=== PATIENT | male | born 1945 | race Caucasian/White ===

== ENCOUNTER 2019-11-07 02:57 | Emergency (ER) | payer OTHER ==
[~2019-11-07] VITALS: Ht 177.8 cm; Wt 102.1 kg
[~2019-11-07 02:57] MED LIST: FLUSAL1005 IH; FURO20 PO; METF500 PO; POTA10T PO; SULTRIDS PO; TAMS.4ER PO
[2019-12-14] MEDS ORDERED: METF500 PO ×2 (13:51→14:03)
[2019-12-14] MEDS ORDERED: AMIT50 PO (13:51)
[2019-12-14] MEDS ORDERED: AMLO10 PO (13:52)
[2019-12-14] MEDS ORDERED: ZESTRIL40 M1 PO (13:52)
[2019-12-14] MEDS ORDERED: Prozac40 MG PO (13:52)
[2019-12-14] MEDS ORDERED: GABA300T24 PO (13:53)
[2019-12-14] MEDS ORDERED: BUDE6HFA INH (13:53)
[2019-12-14] MEDS ORDERED: SPIRIVA RESPIMAT4 GM INH (13:53)
[2019-12-14] MEDS ORDERED: Ventolin/Prove6.7 GM INH (13:54)
[2019-12-14] MEDS ORDERED: Duoneb 2.5-0.5 M3 ML (13:54)
[2019-12-14] MEDS ORDERED: OMEPRAZOLE20 MG PO (13:55)
[2019-12-14] MEDS ORDERED: IBUP800 PO (13:55)
[2019-12-14] MEDS ORDERED: HYDCHL25 PO (13:55)
[2019-12-14] MEDS ORDERED: FLUT1DIS5 INH (14:01)
[2019-12-14] MEDS ORDERED: [UNRECOGNIZED DRUG - MIXTURE] (14:02)
[2019-12-14] MEDS ORDERED: Aspirin EC81 MG PO (14:02)
[2019-12-14] MEDS ORDERED: FURO40 PO (14:02)
[2019-12-14] MEDS ORDERED: METO25ER PO (14:03)
[2019-12-14] MEDS ORDERED: POTA10T PO (14:03)
[2019-12-14] MEDS ORDERED: GABA300 (14:03)
[2019-12-14] MEDS ORDERED: PRIM250 PO (14:03)
[2019-12-14] MEDS ORDERED: LOSA50 PO (14:03)
[2019-12-14] MEDS ORDERED: DULO60 PO (14:04)
[2019-12-14] MEDS ORDERED: DULO30 PO (14:04)
[2019-12-14] MEDS ORDERED: NAPR220 PO (14:04)
== END 2019-11-07 03:37 | disposition home or self-care (01) ==
LOC: ER 02:57
DX: S16.1XXA Strain of muscle, fascia and tendon at neck level, initial encounter (principal); I10 Essential (primary) hypertension; E11.9 Type 2 diabetes mellitus without complications; J44.9 Chronic obstructive pulmonary disease, unspecified; Z79.899 Other long term (current) drug therapy; Z79.84 Long term (current) use of oral hypoglycemic drugs; X58.XXXA Exposure to other specified factors, initial encounter
CPT/HCPCS: 99283; A9270

== ENCOUNTER 2019-12-22 09:26 | Day surgery (SDC) | payer OTHER ==
[~2019-12-22] VITALS: Ht 177.8 cm; Wt 102.4 kg
[~2019-12-22 09:26] MED LIST changes: +AMIT50 PO; +AMLO10 PO; +Aspirin EC81 MG PO; +BUDE6HFA INH; +DULO30 PO; +DULO60 PO; +Duoneb 2.5-0.5 M3 ML; +FLUT1DIS5 INH; +FURO40 PO; +GABA300; +GABA300T24 PO; +HYDCHL25 PO; +IBUP800 PO; +LOSA50 PO; +METO25ER PO; +NAPR220 PO; +OMEPRAZOLE20 MG PO; +PRIM250 PO; +Prozac40 MG PO; +SPIRIVA RESPIMAT4 GM INH; +Ventolin/Prove6.7 GM INH; +ZESTRIL40 M1 PO; +[UNRECOGNIZED DRUG - MIXTURE]
== END 2019-12-22 11:40 | disposition home or self-care (01) ==
LOC: ORSCSDS 09:26
PROVIDERS: Student in an Organized Health Care Education/Training Program
PROC: 0DBK8ZX Excision of Ascending Colon, Via Natural or Artificial Opening Endoscopic, Diagnostic (ICD-10-PCS; principal; 2019-12-22 11:00)
PROC: 0DBN8ZX Excision of Sigmoid Colon, Via Natural or Artificial Opening Endoscopic, Diagnostic (ICD-10-PCS; principal; 2019-12-22 11:00)
PROC: 0DBH8ZX Excision of Cecum, Via Natural or Artificial Opening Endoscopic, Diagnostic (ICD-10-PCS; principal; 2019-12-22 11:00)
PROC: 0DBP8ZX Excision of Rectum, Via Natural or Artificial Opening Endoscopic, Diagnostic (ICD-10-PCS; principal; 2019-12-22 11:00)
DX: K92.1 Melena (principal); D12.0 Benign neoplasm of cecum; D12.2 Benign neoplasm of ascending colon; K63.5 Polyp of colon; K62.1 Rectal polyp; K57.30 Diverticulosis of large intestine without perforation or abscess without bleeding; K64.8 Other hemorrhoids; K64.4 Residual hemorrhoidal skin tags; G47.33 Obstructive sleep apnea (adult) (pediatric); E11.9 Type 2 diabetes mellitus without complications; J44.9 Chronic obstructive pulmonary disease, unspecified; Z79.899 Other long term (current) drug therapy; Z79.84 Long term (current) use of oral hypoglycemic drugs; Z79.82 Long term (current) use of aspirin
CPT/HCPCS: 82947; 88305; J2250; J2704; J7120

== ENCOUNTER → 2020-04-10 | Outpatient (CLI) | payer OTHER ==
[2020-04-10 12:53] LABS: BASOPHILS ABSOLUTE AUTO 0.02 K/mm3 (0.00-0.23); BASOPHILS PERCENT AUTO 1 % (0-2); EOSINOPHILS ABSOLUTE AUTO 0.17 K/mm3 (0.00-0.68); EOSINOPHILS PERCENT AUTO 5 % (0-6); Hematocrit 46.5 % (37.0-53.0); Hemoglobin 15.6 g/dL (13.5-17.5); IMMATURE GRAN ABSOLUTE AUTO 0.02 K/mm3 (0.00-0.10); IMMATURE GRAN PERCENT AUTO 1 % (0-1); LYMPHOCYTES ABSOLUTE AUTO 0.73 K/mm3 (0.84-5.20); LYMPHOCYTES PERCENT AUTO 20 % (21-46); MONOCYTES ABSOLUTE AUTO 0.45 K/mm3 (0.16-1.47); MONOCYTES PERCENT AUTO 12 % (4-13); Mean Corpuscular HGB 34.4 pg (26.0-34.0); Mean Corpuscular HGB Conc 33.5 g/dL (31.5-36.5); Mean Corpuscular Volume 102 fL (80-100); Mean Platelet Volume 11.4 fL (9.1-12.4); NEUTROPHILS ABSOLUTE AUTO 2.28 K/mm3 (1.96-9.15); NEUTROPHILS PERCENT AUTO 62 % (41-73); Platelet Count 146 K/mm3 (150-400); RDW Coefficient Variation 14.8 % (11.7-14.2); RDW Standard Deviation 56.5 fL (35.1-46.3); Red Blood Cell Count 4.54 M/mm3 (4.30-5.90); White Blood Cell Count 3.67 K/mm3 (4.00-11.30)
[2020-04-10 13:07] LABS: Anion Gap 6 mmol/L (6-16); Blood Urea Nitrogen 22 mg/dL (8-24); Bun/Creatinine Ratio 22.9 (12.0-20.0); CO2, Blood 34 mmol/L (21-32); Chloride, Blood 103 mmol/L (98-108); Creatinine, Blood 0.96 mg/dL (0.60-1.20); Glomerular Filtration Rate >60 (60-); Glucose, Blood 143 mg/dL (70-99); Potassium, Blood 4.5 mmol/L (3.5-5.5); Sodium, Blood 143 mmol/L (136-145)
[2020-04-10 13:11] LABS: Troponin I <0.017 ng/mL (0.000-0.040)
== END | disposition home or self-care (01) ==
LOC: LAB 12:50 → LAB EV 12:50 → LAB SHORT 12:50
PROVIDERS: Family Medicine
DX: R06.00 Dyspnea, unspecified (principal)
CPT/HCPCS: 80048; 83880; 84484; 85025

== ENCOUNTER → 2020-08-16 | Outpatient (CLI) | payer OTHER | END | disposition home or self-care (01) | LOC: LAB SHORT 15:30 → LAB 15:30 | DX: L97.509 Non-pressure chronic ulcer of other part of unspecified foot with unspecified severity (principal) | CPT/HCPCS: 87070; 87075; 87077; 87186; 87205 ==

== ENCOUNTER → 2020-09-14 | Outpatient (CLI) | payer OTHER ==
[2020-09-17 14:32] LABS: Adenovirus F 40/41 Not Detected (NOT DETECT); Astrovirus Not Detected (NOT DETECT); Campylobacter Sp Not Detected (NOT DETECT); Cryptosporidium Not Detected (NOT DETECT); Cyclospora Cayetanensis Not Detected (NOT DETECT); E. Coli O157 Not Detected (NOT DETECT); Entamoeba Histolytica Not Detected (NOT DETECT); Enteroaggregative E. coli-EAEC Not Detected (NOT DETECT); Enteropathogenic E. coli-EPEC Not Detected (NOT DETECT); Enterotoxigenic E. coli-ETEC Not Detected (NOT DETECT); Giardia Lamblia Not Detected (NOT DETECT); Norovirus GI/GII Not Detected (NOT DETECT); Plesiomonas Shigelloides Not Detected (NOT DETECT); Rotavirus A Not Detected (NOT DETECT); Salmonella Sp Not Detected (NOT DETECT); Sapovirus Not Detected (NOT DETECT); Shiga Toxin-prod E. coli-STEC Not Detected (NOT DETECT); Shigella/Enteroin E. coli-EIEC Not Detected (NOT DETECT); Vibrio Cholerae Not Detected (NOT DETECT); Vibrio Sp Not Detected (NOT DETECT); Yersinia Enterocolitica Not Detected (NOT DETECT)
== END | disposition home or self-care (01) ==
LOC: LAB SHORT 17:30 → LAB 17:30
PROVIDERS: Internal Medicine
DX: R19.7 Diarrhea, unspecified (principal)
CPT/HCPCS: 0097U; 87177; 87209; 87324

== ENCOUNTER → 2021-09-28 | Outpatient (CLI) | payer MEDICARE | END | disposition home or self-care (01) | LOC: LAB SHORT 17:03 → LAB 17:03 | DX: N39.0 Urinary tract infection, site not specified (principal) | CPT/HCPCS: 87086 ==

== ENCOUNTER 2021-11-17 03:39 | Observation (INO) | payer MEDICARE ==
[~2021-11-17] VITALS: Ht 177.8 cm; Wt 88.1 kg
[~2021-11-17 03:39] MED LIST changes: -GABA300; +GABA300 PO
[2021-11-17 04:45] LABS: BASOPHILS ABSOLUTE AUTO 0.02 K/mm3 (0.00-0.23); BASOPHILS PERCENT AUTO 1 % (0-2); EOSINOPHILS ABSOLUTE AUTO 0.05 K/mm3 (0.00-0.68); EOSINOPHILS PERCENT AUTO 1 % (0-6); Hematocrit 46.1 % (37.0-53.0); Hemoglobin 14.5 g/dL (13.5-17.5); IMMATURE GRAN ABSOLUTE AUTO 0.01 K/mm3 (0.00-0.10); IMMATURE GRAN PERCENT AUTO 0 % (0-1); LYMPHOCYTES ABSOLUTE AUTO 0.38 K/mm3 (0.84-5.20); LYMPHOCYTES PERCENT AUTO 9 % (21-46); MONOCYTES ABSOLUTE AUTO 0.65 K/mm3 (0.16-1.47); MONOCYTES PERCENT AUTO 15 % (4-13); Mean Corpuscular HGB 31.9 pg (26.0-34.0); Mean Corpuscular HGB Conc 31.5 g/dL (31.5-36.5); Mean Corpuscular Volume 101 fL (80-100); NEUTROPHILS ABSOLUTE AUTO 3.22 K/mm3 (1.96-9.15); NEUTROPHILS PERCENT AUTO 74 % (41-73); Platelet Count 141 K/mm3 (150-400); RDW Standard Deviation 56.6 fL (35.1-46.3); Red Blood Cell Count 4.55 M/mm3 (4.30-5.90); White Blood Cell Count 4.33 K/mm3 (4.00-11.30)
[2021-11-17 05:07] LABS: Alanine Aminotransfer (ALT/SGP 22 U/L (12-78); Albumin, Blood 2.9 g/dL (3.4-5.0); Albumin/Globulin Ratio 0.9 (0.8-1.8); Alk Phos 97 U/L (50-136); Anion Gap 4 mmol/L (6-16); Aspartate Aminotrans (AST/SGOT 21 U/L (12-37); Bilirubin, Total 0.4 mg/dL (0.1-1.0); Blood Urea Nitrogen 12 mg/dL (8-24); Bun/Creatinine Ratio 15.5 (12.0-20.0); CO2, Blood 30 mmol/L (21-32); Chloride, Blood 104 mmol/L (98-108); Creatinine, Blood 0.77 mg/dL (0.60-1.20); Globulin, Blood 3.3 g/dL (2.2-4.0); Glomerular Filtration Rate >60 (60-); Glucose, Blood 138 mg/dL (70-99); Potassium, Blood 4.2 mmol/L (3.5-5.5); Sodium, Blood 138 mmol/L (136-145); Total Protein, Blood 6.2 g/dL (6.4-8.2); Troponin I <0.015 ng/mL (0.000-0.040)
[2021-11-17 05:30] LABS: Influenza A, PCR NEGATIVE (NEGATIVE); Influenza B, PCR NEGATIVE (NEGATIVE); Resp Syncytial Virus, PCR NEGATIVE (NEGATIVE); SARS-Cov-2 (COVID-19) PCR, MMC NEGATIVE (NEGATIVE)
[2021-11-17] MEDS ORDERED: AMLODIPINE BESY10 MG PO (07:19)
[2021-11-17] MEDS ORDERED: Ventolin/Prove6.7 GM INH (07:19)
[2021-11-17] MEDS ORDERED: FENOFIBRATE48 MG PO (07:20)
[2021-11-17] MEDS ORDERED: PRIMIDONE PO (07:21)
[2021-11-17] MEDS ORDERED: AZELASTINE137 MCG/06 (07:22)
[2021-11-17] MEDS ORDERED: METO25ER PO (15:42)
[2021-11-17] MEDS ORDERED: OMEGA-3 FISH O1 EAC6 PO (15:43)
[2021-11-17] MEDS ORDERED: FLUT1DIS5 INH (15:44)
--- NOTE | 2021-11-17 15:48 | NUR ---
ARRIVES TO THE FLOOR ABOUT 1430. ALERT. ORIENTED. HAD 2 SHOTS COVID AND THEN HAD COVID 08/20 AND RECEIVED REGENERON. HX COPD, HTN AND DIET CONTROLLED D.M. HAS HAD SOB WITH WEAKNESS FOR FEW WEEKS GETTING WORSE PAST FEW DAYS. PAIN WITH DEEP INSPIRATION. COUGHS WHEN TRYING TO TAKE A DEEP INSPIRATION. WAS ON 4.5 L UPON ADMIT, BUT NOW ON 2.5 L WITH SATS 93% AND HEART RATE IN 70'S. PLEASANT. COOPERATIVE. AWARE TO LET US KNOW IF NEEDS TO USE BSC OR BATHROOM. BED ALARM ON. LUNGS DIM LOWER LOBES, WHEEZEY UPPER. TELE ON SHOWING SR. WCTM
--- NOTE | 2021-11-17 20:42 | NUR ---
ALERTED TO PT C/O CONGESTION AND SOB W/WHEEZES AUSCULTATED TO BILAT LUNG LOBES. BD PROTOCOL AND PRN SEA SPRAY RX'D. SPO2 >91% ON CONT.BIOX. AND NO ACUTE RESP DISTRESS OBSERVED.
--- NOTE | 2021-11-18 05:07 | NUR ---
SUMMARY: PT A/OX4, CALLS APPROPRIATELY TO SPECIFY NEEDS AND IS PLEASANT AND COOPERATIVE W/CARE. HE REMAINS ON 1-2.5L O2 VIA NC AND TOLERATED HOME CPAP AT HS. CONT BIOX INTACT W/SPO2 WNL. WHEEZES AUSCULATED THIS SHIFT, BD PROTOCOL OBTAINED AND BX TX'S RECIEVED BY RT PER EMAR. SOB OBSERVED W/EXERTION BUT PT RECOVERS QUICKLY AT REST. SUBSCRIPTION CLERK COUGH PERSISTS AND SEA SPRAY OBTAINED FOR PT C/O CONGESTION. NO ACUTE CHANGES, VSS/AFEBRILE. WCTM AND REPORT TO DAY RN.
--- NOTE | 2021-11-18 07:35 | NUR ---
pt laying in bed wiht cpap on, wakes easily, a/ox3, pleasant and cooperative with care, follows commands well, denies pain, states he slept ok, lungs have exp wheezing t/o, resp even and unlabored, no cough noted at this time, desats to 88% on r/a when removed the cpap, hrr, tele in place running sr per monitor, see strip, no giselle a noted, ppp+1, cap refill<3sec, vs stable, afebrile, iv site is clear and patent, s.duke hennessy, sba to bathroom, eric, skin c/w/d, call light in reach.
--- NOTE | 2021-11-18 18:02 | NUR ---
pt sitting up on the side of the bed to eat dinner, states he's doing ok, administered a dose of rocephin as ordered, no acute changes this shift. call light in reach.
[2021-11-19 05:16] LABS: BASOPHILS ABSOLUTE AUTO 0.01 K/mm3 (0.00-0.23); BASOPHILS PERCENT AUTO 1 % (0-2); EOSINOPHILS ABSOLUTE AUTO 0.01 K/mm3 (0.00-0.68); EOSINOPHILS PERCENT AUTO 1 % (0-6); Hematocrit 43.4 % (37.0-53.0); IMMATURE GRAN PERCENT AUTO 0 % (0-1); LYMPHOCYTES ABSOLUTE AUTO 0.54 K/mm3 (0.84-5.20); LYMPHOCYTES PERCENT AUTO 26 % (21-46); MONOCYTES PERCENT AUTO 19 % (4-13); Mean Corpuscular HGB 32.6 pg (26.0-34.0); Mean Corpuscular HGB Conc 32.3 g/dL (31.5-36.5); Mean Corpuscular Volume 101 fL (80-100); NEUTROPHILS ABSOLUTE AUTO 1.12 K/mm3 (1.96-9.15); NEUTROPHILS PERCENT AUTO 54 % (41-73); Platelet Count 101 K/mm3 (150-400); RDW Coefficient Variation 15.1 % (11.7-14.2); RDW Standard Deviation 57.1 fL (35.1-46.3); Red Blood Cell Count 4.29 M/mm3 (4.30-5.90); White Blood Cell Count 2.08 K/mm3 (4.00-11.30)
[2021-11-19 06:12] LABS: Alanine Aminotransfer (ALT/SGP 20 U/L (12-78); Albumin, Blood 2.6 g/dL (3.4-5.0); Albumin/Globulin Ratio 0.9 (0.8-1.8); Alk Phos 72 U/L (50-136); Anion Gap 5 mmol/L (6-16); Aspartate Aminotrans (AST/SGOT 17 U/L (12-37); Bilirubin, Total 0.3 mg/dL (0.1-1.0); Blood Urea Nitrogen 10 mg/dL (8-24); Bun/Creatinine Ratio 15.7 (12.0-20.0); CO2, Blood 34 mmol/L (21-32); Chloride, Blood 100 mmol/L (98-108); Creatinine, Blood 0.64 mg/dL (0.60-1.20); Globulin, Blood 2.9 g/dL (2.2-4.0); Glomerular Filtration Rate >60 (60-); Glucose, Blood 102 mg/dL (70-99); Potassium, Blood 3.5 mmol/L (3.5-5.5); Sodium, Blood 139 mmol/L (136-145); Total Protein, Blood 5.5 g/dL (6.4-8.2)
--- NOTE | 2021-11-19 11:06 | NUR ---
Nutrition Education. Pt sitting up on chair, alert and aware. AND vegetarian nutrition therapy education packet reviewed and provided to pt. Discussed using frozen vegetables for options at home to increase use in meals. Discussed quick ways to prepare meals such as salads, soups, and steamed vegetable dishes. Discussed using Saltless seasoning mixes for flavoring. Discussed finding vegetarian recipes and adding selected meat as desired. Pt was involved in education, described how he lives with his daughter who does not eat vegetables. 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 He recently over the past 2yrs has lost over 30 Lbs and has reduced or come off diabetic management medication. Overall, pt was interactive with education and acceptec printed hand out.
--- NOTE | 2021-11-19 12:16 | NUR ---
Per chart review with Dr. Pulido, patient is appropriate for discharge. Patient feels safe to return home and denies barriers to discharge. I scheduled a hospital follow up for tomorrow with Dr. Tiny Max at 10:00. Patient's daughter is aware that the patient is discharging and will be here at the hospital to provide transportation home at 2:00PM.
[2021-11-19] MEDS ORDERED: CEFP200 PO (12:48)
[2021-11-19] MEDS ORDERED: AZIT250 PO (12:48)
[2021-11-19] MEDS ORDERED: Prednisone10 MG PO (12:51)
[2021-11-19] MEDS ORDERED: VISBIOME 112.51 EACH (13:11)
--- NOTE | 2021-11-19 15:30 | NUR ---
TELE CALLED AT 1415 AND NOTIFIED RN THAT PT HAD A RUN OF SVT AT 1315- PT STATES HE NEVER NOTICED ANY DIZZINESS OR SYMPTOMS. CALLED DR WICK AT 1430 TO NOTIFY OF RUN- NO INTERVENTIONS AT THIS TIME AND CONT WITH TX.
--- NOTE | 2021-11-19 15:52 | NUR ---
PT DISCHARGED WITH DC ORDERS, BELONGINGS SENT HOME INCLUDING CPAP MACHINE. WHEELCHAIR OUT TO PRIVATE CAR. APPT [facility] TOMORROW.
== END 2021-11-19 15:00 | disposition home or self-care (01) ==
LOC: ER 03:39 → ERHOLD 03:40 → MEDS 14:14
PROVIDERS: Emergency Medicine; Hospitalist; ADMIT Family Medicine
DX: J44.1 Chronic obstructive pulmonary disease with (acute) exacerbation (principal); J30.2 Other seasonal allergic rhinitis; R04.0 Epistaxis; E11.9 Type 2 diabetes mellitus without complications; I10 Essential (primary) hypertension; G47.33 Obstructive sleep apnea (adult) (pediatric); R31.9 Hematuria, unspecified; R33.9 Retention of urine, unspecified; E66.9 Obesity, unspecified; Z79.82 Long term (current) use of aspirin; Z79.84 Long term (current) use of oral hypoglycemic drugs; Z87.891 Personal history of nicotine dependence; Z20.822 Contact with and (suspected) exposure to COVID-19; Z86.16 Personal history of COVID-19; Z68.27 Body mass index [BMI] 27.0-27.9, adult
CPT/HCPCS: 0241U; 36415; 71045; 76770; 80053; 82947; 83605; 83880; 84484; 85025; 93005; 93010; 94640; 94644; 94664; 94760; 94762; 96365; 96366; 96372; 96375; 97110; 97161; 97165; 97530; 98960; 99285-25; A9270; G0378; J0456; J0696; J1650; J2930; J7050; J7512

== ENCOUNTER 2022-02-09 15:22 | Inpatient (IN) | payer MEDICARE ==
[~2022-02-09] VITALS: Ht 175.3 cm; Wt 82.7 kg
[~2022-02-09 15:22] MED LIST changes: +AMLODIPINE BESY10 MG PO; +AZELASTINE137 MCG/06; +AZIT250 PO; +CEFP200 PO; +FENOFIBRATE48 MG PO; +OMEGA-3 FISH O1 EAC6 PO; +PRIM250; +Prednisone10 MG PO; +VISBIOME 112.51 EACH
[2022-02-09 16:01] LABS: BASOPHILS ABSOLUTE AUTO 0.03 K/mm3 (0.00-0.23); BASOPHILS PERCENT AUTO 0 % (0-2); EOSINOPHILS ABSOLUTE AUTO 0.01 K/mm3 (0.00-0.68); EOSINOPHILS PERCENT AUTO 0 % (0-6); Hematocrit 48.1 % (37.0-53.0); Hemoglobin 15.3 g/dL (13.5-17.5); IMMATURE GRAN ABSOLUTE AUTO 0.03 K/mm3 (0.00-0.10); IMMATURE GRAN PERCENT AUTO 0 % (0-1); LYMPHOCYTES ABSOLUTE AUTO 0.45 K/mm3 (0.84-5.20); LYMPHOCYTES PERCENT AUTO 4 % (21-46); MONOCYTES ABSOLUTE AUTO 1.12 K/mm3 (0.16-1.47); MONOCYTES PERCENT AUTO 11 % (4-13); Mean Corpuscular HGB 32.6 pg (26.0-34.0); Mean Corpuscular HGB Conc 31.8 g/dL (31.5-36.5); Mean Corpuscular Volume 102 fL (80-100); Mean Platelet Volume 11.2 fL (9.1-12.4); NEUTROPHILS ABSOLUTE AUTO 8.94 K/mm3 (1.96-9.15); NEUTROPHILS PERCENT AUTO 84 % (41-73); Platelet Count 156 K/mm3 (150-400); RDW Coefficient Variation 14.6 % (11.7-14.2); RDW Standard Deviation 55.3 fL (35.1-46.3); White Blood Cell Count 10.58 K/mm3 (4.00-11.30)
[2022-02-09] MEDS ORDERED: FLUT1DIS5 INH ×2 (16:03)
[2022-02-09 16:14] LABS: Alanine Aminotransfer (ALT/SGP 25 U/L (12-78); Albumin, Blood 3.8 g/dL (3.4-5.0); Alk Phos 117 U/L (50-136); Anion Gap 1 mmol/L (6-16); Aspartate Aminotrans (AST/SGOT 28 U/L (12-37); Bilirubin, Total 0.3 mg/dL (0.1-1.0); Blood Urea Nitrogen 20 mg/dL (8-24); Bun/Creatinine Ratio 21.2 (12.0-20.0); CO2, Blood 32 mmol/L (21-32); Calcium, Blood 9.2 mg/dL (8.5-10.1); Chloride, Blood 98 mmol/L (98-108); Creatinine, Blood 0.94 mg/dL (0.60-1.20); Globulin, Blood 3.7 g/dL (2.2-4.0); Glomerular Filtration Rate >60 (60-); Glucose, Blood 151 mg/dL (70-99); Magnesium, Blood 1.7 mg/dL (1.6-2.4); Potassium, Blood 4.5 mmol/L (3.5-5.5); Sodium, Blood 131 mmol/L (136-145); Total Protein, Blood 7.5 g/dL (6.4-8.2)
[2022-02-09 17:02] LABS: Influenza A, PCR NEGATIVE (NEGATIVE); Influenza B, PCR NEGATIVE (NEGATIVE); Resp Syncytial Virus, PCR NEGATIVE (NEGATIVE); SARS-Cov-2 (COVID-19) PCR, MMC NEGATIVE (NEGATIVE)
[2022-02-09 17:06] LABS: pH Blood Arterial 7.41 (7.35-7.45)
[2022-02-09] MEDS ORDERED: Prinivil10 MG (20:14)
[2022-02-09 20:25] LABS: Source, Urine Clean Catch
[2022-02-09 20:28] LABS: Bilirubin, Urine Neg (Neg); Blood, Urine 5+ (Neg); Glucose Qualitative, Urine Neg (Neg); Ketones, Urine 1+ (Neg); Leukocyte Esterase, Urine 1+ (Neg); Nitrite, Urine Neg (Neg); Protein, Urine 3+ (Neg); Specific Gravity, Urine 1.025 (1.003-1.022); Urobilinogen, Urine NORM (Normal)
[2022-02-09 20:42] LABS: Appearance, Urine Hazy (Clear); Color, Urine Brown (P-Yellow)
[2022-02-09 20:43] LABS: Amorphous Mod (0-Heavy); Bacteria Mod /hpf; Red Blood Cells, Urine 50-100 /hpf (0-2); Squamous Epithelial Cells Few /hpf (Few)
[2022-02-10 03:21] LABS: BASOPHILS ABSOLUTE AUTO 0.03 K/mm3 (0.00-0.23); BASOPHILS PERCENT AUTO 0 % (0-2); EOSINOPHILS PERCENT AUTO 0 % (0-6); Hematocrit 46.9 % (37.0-53.0); Hemoglobin 15.1 g/dL (13.5-17.5); IMMATURE GRAN ABSOLUTE AUTO 0.05 K/mm3 (0.00-0.10); IMMATURE GRAN PERCENT AUTO 0 % (0-1); LYMPHOCYTES ABSOLUTE AUTO 1.05 K/mm3 (0.84-5.20); LYMPHOCYTES PERCENT AUTO 9 % (21-46); MONOCYTES ABSOLUTE AUTO 1.35 K/mm3 (0.16-1.47); MONOCYTES PERCENT AUTO 11 % (4-13); Mean Corpuscular HGB 33.3 pg (26.0-34.0); Mean Corpuscular HGB Conc 32.2 g/dL (31.5-36.5); Mean Corpuscular Volume 103 fL (80-100); Mean Platelet Volume 11.4 fL (9.1-12.4); NEUTROPHILS ABSOLUTE AUTO 9.54 K/mm3 (1.96-9.15); NEUTROPHILS PERCENT AUTO 80 % (41-73); Platelet Count 106 K/mm3 (150-400); RDW Coefficient Variation 14.8 % (11.7-14.2); RDW Standard Deviation 57.4 fL (35.1-46.3); Red Blood Cell Count 4.54 M/mm3 (4.30-5.90); White Blood Cell Count 12.02 K/mm3 (4.00-11.30)
[2022-02-10 03:37] LABS: Alanine Aminotransfer (ALT/SGP 19 U/L (12-78); Albumin, Blood 3.5 g/dL (3.4-5.0); Albumin/Globulin Ratio 0.9 (0.8-1.8); Alk Phos 96 U/L (50-136); Anion Gap 5 mmol/L (6-16); Aspartate Aminotrans (AST/SGOT 21 U/L (12-37); Bilirubin, Total 0.6 mg/dL (0.1-1.0); Blood Urea Nitrogen 18 mg/dL (8-24); Bun/Creatinine Ratio 23.7 (12.0-20.0); CO2, Blood 32 mmol/L (21-32); Calcium, Blood 9.1 mg/dL (8.5-10.1); Chloride, Blood 97 mmol/L (98-108); Creatinine, Blood 0.76 mg/dL (0.60-1.20); Globulin, Blood 3.9 g/dL (2.2-4.0); Glomerular Filtration Rate >60 (60-); Glucose, Blood 123 mg/dL (70-99); Potassium, Blood 4.5 mmol/L (3.5-5.5); Sodium, Blood 134 mmol/L (136-145); Total Protein, Blood 7.4 g/dL (6.4-8.2)
[2022-02-11 03:48] LABS: BASOPHILS ABSOLUTE AUTO 0.01 K/mm3 (0.00-0.23); BASOPHILS PERCENT AUTO 0 % (0-2); Hematocrit 41.3 % (37.0-53.0); Hemoglobin 13.3 g/dL (13.5-17.5); LYMPHOCYTES ABSOLUTE AUTO 1.22 K/mm3 (0.84-5.20); LYMPHOCYTES PERCENT AUTO 12 % (21-46); MONOCYTES ABSOLUTE AUTO 0.73 K/mm3 (0.16-1.47); MONOCYTES PERCENT AUTO 7 % (4-13); Mean Corpuscular HGB 32.8 pg (26.0-34.0); Mean Corpuscular HGB Conc 32.2 g/dL (31.5-36.5); Mean Corpuscular Volume 102 fL (80-100); Mean Platelet Volume 11.6 fL (9.1-12.4); Platelet Count 107 K/mm3 (150-400); RDW Coefficient Variation 14.7 % (11.7-14.2); RDW Standard Deviation 56.1 fL (35.1-46.3); Red Blood Cell Count 4.05 M/mm3 (4.30-5.90); White Blood Cell Count 9.98 K/mm3 (4.00-11.30)
[2022-02-11 03:57] LABS: EOSINOPHILS PERCENT AUTO 0 % (0-6); IMMATURE GRAN ABSOLUTE AUTO 0.09 K/mm3 (0.00-0.10); IMMATURE GRAN PERCENT AUTO 1 % (0-1); NEUTROPHILS ABSOLUTE AUTO 7.93 K/mm3 (1.96-9.15); NEUTROPHILS PERCENT AUTO 80 % (41-73)
[2022-02-11 04:01] LABS: Albumin, Blood 2.4 g/dL (3.4-5.0); Anion Gap 5 mmol/L (6-16); Blood Urea Nitrogen 20 mg/dL (8-24); Bun/Creatinine Ratio 21.4 (12.0-20.0); CO2, Blood 33 mmol/L (21-32); Chloride, Blood 96 mmol/L (98-108); Creatinine, Blood 0.94 mg/dL (0.60-1.20); Glomerular Filtration Rate >60 (60-); Glucose, Blood 102 mg/dL (70-99); Magnesium, Blood 1.9 mg/dL (1.6-2.4); Phosphorus, Blood 2.7 mg/dL (2.5-4.9); Potassium, Blood 3.9 mmol/L (3.5-5.5); Sodium, Blood 134 mmol/L (136-145)
[2022-02-12 03:49] LABS: BASOPHILS ABSOLUTE AUTO 0.01 K/mm3 (0.00-0.23); BASOPHILS PERCENT AUTO 0 % (0-2); EOSINOPHILS ABSOLUTE AUTO 0.01 K/mm3 (0.00-0.68); EOSINOPHILS PERCENT AUTO 0 % (0-6); Hematocrit 38.3 % (37.0-53.0); Hemoglobin 12.5 g/dL (13.5-17.5); IMMATURE GRAN ABSOLUTE AUTO 0.03 K/mm3 (0.00-0.10); IMMATURE GRAN PERCENT AUTO 1 % (0-1); LYMPHOCYTES ABSOLUTE AUTO 0.68 K/mm3 (0.84-5.20); LYMPHOCYTES PERCENT AUTO 12 % (21-46); MONOCYTES ABSOLUTE AUTO 0.35 K/mm3 (0.16-1.47); MONOCYTES PERCENT AUTO 6 % (4-13); Mean Corpuscular HGB 32.9 pg (26.0-34.0); Mean Corpuscular HGB Conc 32.6 g/dL (31.5-36.5); Mean Corpuscular Volume 101 fL (80-100); Mean Platelet Volume 11.4 fL (9.1-12.4); NEUTROPHILS ABSOLUTE AUTO 4.61 K/mm3 (1.96-9.15); NEUTROPHILS PERCENT AUTO 81 % (41-73); Platelet Count 105 K/mm3 (150-400); RDW Coefficient Variation 14.1 % (11.7-14.2); White Blood Cell Count 5.69 K/mm3 (4.00-11.30)
[2022-02-12 04:06] LABS: Albumin, Blood 2.4 g/dL (3.4-5.0); Anion Gap 3 mmol/L (6-16); Blood Urea Nitrogen 22 mg/dL (8-24); Bun/Creatinine Ratio 31.8 (12.0-20.0); CO2, Blood 33 mmol/L (21-32); Calcium, Blood 9.3 mg/dL (8.5-10.1); Chloride, Blood 97 mmol/L (98-108); Creatinine, Blood 0.69 mg/dL (0.60-1.20); Glomerular Filtration Rate >60 (60-); Glucose, Blood 154 mg/dL (70-99); Phosphorus, Blood 1.9 mg/dL (2.5-4.9); Potassium, Blood 4.2 mmol/L (3.5-5.5); Sodium, Blood 133 mmol/L (136-145)
[2022-02-13 03:45] LABS: BASOPHILS PERCENT AUTO 0 % (0-2); EOSINOPHILS ABSOLUTE AUTO 0.01 K/mm3 (0.00-0.68); EOSINOPHILS PERCENT AUTO 0 % (0-6); Hematocrit 38.3 % (37.0-53.0); Hemoglobin 12.4 g/dL (13.5-17.5); IMMATURE GRAN ABSOLUTE AUTO 0.01 K/mm3 (0.00-0.10); IMMATURE GRAN PERCENT AUTO 0 % (0-1); LYMPHOCYTES ABSOLUTE AUTO 0.65 K/mm3 (0.84-5.20); LYMPHOCYTES PERCENT AUTO 16 % (21-46); MONOCYTES PERCENT AUTO 7 % (4-13); Mean Corpuscular HGB Conc 32.4 g/dL (31.5-36.5); Mean Corpuscular Volume 102 fL (80-100); Mean Platelet Volume 11.6 fL (9.1-12.4); NEUTROPHILS ABSOLUTE AUTO 3.07 K/mm3 (1.96-9.15); NEUTROPHILS PERCENT AUTO 76 % (41-73); Platelet Count 114 K/mm3 (150-400); RDW Coefficient Variation 14.2 % (11.7-14.2); RDW Standard Deviation 54.2 fL (35.1-46.3); Red Blood Cell Count 3.76 M/mm3 (4.30-5.90); White Blood Cell Count 4.04 K/mm3 (4.00-11.30)
[2022-02-13 04:02] LABS: Albumin, Blood 2.4 g/dL (3.4-5.0); Anion Gap 3 mmol/L (6-16); Blood Urea Nitrogen 17 mg/dL (8-24); Bun/Creatinine Ratio 25.8 (12.0-20.0); CO2, Blood 33 mmol/L (21-32); Calcium, Blood 9.3 mg/dL (8.5-10.1); Chloride, Blood 100 mmol/L (98-108); Creatinine, Blood 0.66 mg/dL (0.60-1.20); Glomerular Filtration Rate >60 (60-); Glucose, Blood 238 mg/dL (70-99); Phosphorus, Blood 2.2 mg/dL (2.5-4.9); Sodium, Blood 136 mmol/L (136-145)
[2022-02-14 04:59] LABS: BASOPHILS ABSOLUTE AUTO 0.01 K/mm3 (0.00-0.23); BASOPHILS PERCENT AUTO 0 % (0-2); EOSINOPHILS ABSOLUTE AUTO 0.04 K/mm3 (0.00-0.68); EOSINOPHILS PERCENT AUTO 1 % (0-6); Hematocrit 43.8 % (37.0-53.0); IMMATURE GRAN ABSOLUTE AUTO 0.02 K/mm3 (0.00-0.10); IMMATURE GRAN PERCENT AUTO 1 % (0-1); LYMPHOCYTES PERCENT AUTO 23 % (21-46); MONOCYTES ABSOLUTE AUTO 0.32 K/mm3 (0.16-1.47); MONOCYTES PERCENT AUTO 9 % (4-13); Mean Corpuscular HGB 32.9 pg (26.0-34.0); Mean Corpuscular Volume 103 fL (80-100); Mean Platelet Volume 11.3 fL (9.1-12.4); NEUTROPHILS ABSOLUTE AUTO 2.25 K/mm3 (1.96-9.15); NEUTROPHILS PERCENT AUTO 65 % (41-73); Platelet Count 131 K/mm3 (150-400); RDW Coefficient Variation 14.1 % (11.7-14.2); RDW Standard Deviation 54.4 fL (35.1-46.3); Red Blood Cell Count 4.26 M/mm3 (4.30-5.90); White Blood Cell Count 3.44 K/mm3 (4.00-11.30)
[2022-02-14 05:35] LABS: Albumin, Blood 2.6 g/dL (3.4-5.0); Anion Gap 4 mmol/L (6-16); Blood Urea Nitrogen 14 mg/dL (8-24); Bun/Creatinine Ratio 19.3 (12.0-20.0); CO2, Blood 35 mmol/L (21-32); Calcium, Blood 9.7 mg/dL (8.5-10.1); Chloride, Blood 100 mmol/L (98-108); Creatinine, Blood 0.73 mg/dL (0.60-1.20); Glomerular Filtration Rate >60 (60-); Glucose, Blood 160 mg/dL (70-99); Phosphorus, Blood 3.1 mg/dL (2.5-4.9); Potassium, Blood 4.1 mmol/L (3.5-5.5); Sodium, Blood 139 mmol/L (136-145)
[2022-02-15 05:26] LABS: BASOPHILS ABSOLUTE AUTO 0.03 K/mm3 (0.00-0.23); BASOPHILS PERCENT AUTO 1 % (0-2); EOSINOPHILS ABSOLUTE AUTO 0.06 K/mm3 (0.00-0.68); EOSINOPHILS PERCENT AUTO 1 % (0-6); Hematocrit 42.3 % (37.0-53.0); Hemoglobin 13.7 g/dL (13.5-17.5); IMMATURE GRAN ABSOLUTE AUTO 0.05 K/mm3 (0.00-0.10); IMMATURE GRAN PERCENT AUTO 1 % (0-1); LYMPHOCYTES ABSOLUTE AUTO 1.07 K/mm3 (0.84-5.20); LYMPHOCYTES PERCENT AUTO 22 % (21-46); MONOCYTES PERCENT AUTO 10 % (4-13); Mean Corpuscular HGB 33.2 pg (26.0-34.0); Mean Corpuscular HGB Conc 32.4 g/dL (31.5-36.5); Mean Corpuscular Volume 102 fL (80-100); NEUTROPHILS ABSOLUTE AUTO 3.17 K/mm3 (1.96-9.15); NEUTROPHILS PERCENT AUTO 65 % (41-73); Platelet Count 161 K/mm3 (150-400); RDW Coefficient Variation 14.1 % (11.7-14.2); RDW Standard Deviation 53.6 fL (35.1-46.3); Red Blood Cell Count 4.13 M/mm3 (4.30-5.90); White Blood Cell Count 4.88 K/mm3 (4.00-11.30)
[2022-02-15 06:03] LABS: Albumin, Blood 2.6 g/dL (3.4-5.0); Anion Gap 4 mmol/L (6-16); Blood Urea Nitrogen 16 mg/dL (8-24); Bun/Creatinine Ratio 21.1 (12.0-20.0); CO2, Blood 35 mmol/L (21-32); Calcium, Blood 9.8 mg/dL (8.5-10.1); Chloride, Blood 100 mmol/L (98-108); Creatinine, Blood 0.76 mg/dL (0.60-1.20); Glomerular Filtration Rate >60 (60-); Glucose, Blood 149 mg/dL (70-99); Phosphorus, Blood 3.3 mg/dL (2.5-4.9); Potassium, Blood 4.1 mmol/L (3.5-5.5); Sodium, Blood 139 mmol/L (136-145)
[2022-02-17] MEDS ORDERED: XARELTO20 MG PO ×2 (09:11→16:07)
[2022-02-17] MEDS ORDERED: GUAI600T33 PO (09:11)
[2022-02-17] MEDS ORDERED: DELTASONE20 MG PO (09:12)
[2022-02-17] MEDS ORDERED: Tessalon200 MG PO (17:05)
== END 2022-02-17 17:17 | disposition home health service (06) | DRG 871 ==
LOC: ER 15:22 → PCU 18:53 → MEDS 02-13 14:31 → ENPENDDIS 02-17 09:01 → MEDS 02-17 17:17
PROVIDERS: Family Medicine; Physician Assistant; ADMIT Internal Medicine
PROC: 5A09357 Assistance with Respiratory Ventilation, Less than 24 Consecutive Hours, Continuous Positive Airway Pressure (ICD-10-PCS; principal; 2022-02-09)
DX: A41.9 Sepsis, unspecified organism (principal); J13 Pneumonia due to Streptococcus pneumoniae; J96.21 Acute and chronic respiratory failure with hypoxia; J44.1 Chronic obstructive pulmonary disease with (acute) exacerbation; N39.0 Urinary tract infection, site not specified; I50.30 Unspecified diastolic (congestive) heart failure; J44.0 Chronic obstructive pulmonary disease with (acute) lower respiratory infection; F10.239 Alcohol dependence with withdrawal, unspecified; Z20.822 Contact with and (suspected) exposure to COVID-19; Z66 Do not resuscitate; I48.91 Unspecified atrial fibrillation; I25.10 Atherosclerotic heart disease of native coronary artery without angina pectoris; I11.0 Hypertensive heart disease with heart failure; E78.5 Hyperlipidemia, unspecified; G47.33 Obstructive sleep apnea (adult) (pediatric); E83.42 Hypomagnesemia; E11.40 Type 2 diabetes mellitus with diabetic neuropathy, unspecified; Z86.718 Personal history of other venous thrombosis and embolism; Z99.81 Dependence on supplemental oxygen; Z79.82 Long term (current) use of aspirin; Z79.2 Long term (current) use of antibiotics; Z98.890 Other specified postprocedural states; Z87.891 Personal history of nicotine dependence; Z86.16 Personal history of COVID-19; Z86.010 Personal history of colon polyps; Z79.899 Other long term (current) drug therapy
CPT/HCPCS: 0241U; 36415; 36600; 51701; 71045; 80053; 80069; 81001; 82803; 82947; 83605; 83735; 83880; 84145; 84484; 85025; 87040; 87070; 87086; 87186; 87205; 93005; 93010; 94640; 94660; 94664; 94667; 94668; 94762; 96365; 96375; 97112; 97162; 97530; 99285-25; A9270; J0456; J0696; J1650; J2920; J2930; J3475; J7030; J7050; J7512

== ENCOUNTER 2022-02-24 16:48 | Emergency (ER) | payer MEDICARE ==
[~2022-02-24] VITALS: Ht 175.3 cm; Wt 83.0 kg
[~2022-02-24 16:48] MED LIST changes: +DELTASONE20 MG PO; +GUAI600T33 PO; +Prinivil10 MG; +Tessalon200 MG PO; +XARELTO20 MG PO
[2022-02-24] MEDS ORDERED: XARELTO20 M1 PO (20:33)
[2022-02-24 22:24] LABS: BASOPHILS ABSOLUTE AUTO 0.02 K/mm3 (0.00-0.23); BASOPHILS PERCENT AUTO 0 % (0-2); EOSINOPHILS ABSOLUTE AUTO 0.02 K/mm3 (0.00-0.68); EOSINOPHILS PERCENT AUTO 0 % (0-6); Hematocrit 45.8 % (37.0-53.0); Hemoglobin 14.7 g/dL (13.5-17.5); IMMATURE GRAN ABSOLUTE AUTO 0.06 K/mm3 (0.00-0.10); IMMATURE GRAN PERCENT AUTO 1 % (0-1); LYMPHOCYTES ABSOLUTE AUTO 0.71 K/mm3 (0.84-5.20); LYMPHOCYTES PERCENT AUTO 7 % (21-46); MONOCYTES ABSOLUTE AUTO 0.74 K/mm3 (0.16-1.47); MONOCYTES PERCENT AUTO 7 % (4-13); Mean Corpuscular HGB 32.5 pg (26.0-34.0); Mean Corpuscular HGB Conc 32.1 g/dL (31.5-36.5); Mean Corpuscular Volume 101 fL (80-100); NEUTROPHILS ABSOLUTE AUTO 8.56 K/mm3 (1.96-9.15); NEUTROPHILS PERCENT AUTO 85 % (41-73); Platelet Count 249 K/mm3 (150-400); RDW Coefficient Variation 14.1 % (11.7-14.2); RDW Standard Deviation 53.1 fL (35.1-46.3); Red Blood Cell Count 4.53 M/mm3 (4.30-5.90); White Blood Cell Count 10.11 K/mm3 (4.00-11.30)
[2022-02-24 22:49] LABS: Anion Gap 3 mmol/L (6-16); Blood Urea Nitrogen 14 mg/dL (8-24); Bun/Creatinine Ratio 20.8 (12.0-20.0); CO2, Blood 34 mmol/L (21-32); Calcium, Blood 9.3 mg/dL (8.5-10.1); Chloride, Blood 102 mmol/L (98-108); Creatinine, Blood 0.67 mg/dL (0.60-1.20); Glomerular Filtration Rate >60 (60-); Glucose, Blood 104 mg/dL (70-99); International Normalized Ratio 1.04; Potassium, Blood 4.7 mmol/L (3.5-5.5); Prothrombin Time Results 10.9 Sec (9.7-11.5); Sodium, Blood 139 mmol/L (136-145); Thyroid Stimulating Hormone 0.554 uIU/mL (0.360-4.800)
[2022-02-25 00:35] LABS: Influenza A, PCR NEGATIVE (NEGATIVE); Influenza B, PCR NEGATIVE (NEGATIVE); Resp Syncytial Virus, PCR NEGATIVE (NEGATIVE); SARS-Cov-2 (COVID-19) PCR, MMC NEGATIVE (NEGATIVE)
== END 2022-02-25 02:38 | disposition home or self-care (01) ==
LOC: ER 16:48
PROVIDERS: Student in an Organized Health Care Education/Training Program
DX: R55 Syncope and collapse (principal); S06.6X0A Traumatic subarachnoid hemorrhage without loss of consciousness, initial encounter; T45.7X5A Adverse effect of anticoagulant antagonists, vitamin K and other coagulants, initial encounter; Z20.822 Contact with and (suspected) exposure to COVID-19; I10 Essential (primary) hypertension; E11.9 Type 2 diabetes mellitus without complications; J44.9 Chronic obstructive pulmonary disease, unspecified; Z86.718 Personal history of other venous thrombosis and embolism; Z87.891 Personal history of nicotine dependence; Z79.82 Long term (current) use of aspirin; Z79.899 Other long term (current) drug therapy; W19.XXXA Unspecified fall, initial encounter
CPT/HCPCS: 0241U; 36415; 70450; 70496; 70498; 80048; 83735; 84443; 84484; 85025; 85610; 85730; 86850; 86900; 86901; 93005; 93010; A9270; J0780; J1200; J2765; J3475; J7168; Q9967

== ENCOUNTER 2022-03-19 18:54 | Emergency (ER) | payer MEDICARE ==
[~2022-03-19] VITALS: Ht 177.8 cm; Wt 90.7 kg
[~2022-03-19 18:54] MED LIST changes: +XARELTO20 M1 PO
[2022-03-19 19:33] LABS: BASOPHILS ABSOLUTE AUTO 0.01 K/mm3 (0.00-0.23); BASOPHILS PERCENT AUTO 0 % (0-2); EOSINOPHILS ABSOLUTE AUTO 0.09 K/mm3 (0.00-0.68); EOSINOPHILS PERCENT AUTO 2 % (0-6); Hematocrit 41.4 % (37.0-53.0); Hemoglobin 13.7 g/dL (13.5-17.5); IMMATURE GRAN ABSOLUTE AUTO 0.01 K/mm3 (0.00-0.10); IMMATURE GRAN PERCENT AUTO 0 % (0-1); LYMPHOCYTES ABSOLUTE AUTO 0.81 K/mm3 (0.84-5.20); LYMPHOCYTES PERCENT AUTO 21 % (21-46); MONOCYTES ABSOLUTE AUTO 0.48 K/mm3 (0.16-1.47); MONOCYTES PERCENT AUTO 13 % (4-13); Mean Corpuscular HGB 33.4 pg (26.0-34.0); Mean Corpuscular HGB Conc 33.1 g/dL (31.5-36.5); Mean Corpuscular Volume 101 fL (80-100); Mean Platelet Volume 10.1 fL (9.1-12.4); NEUTROPHILS ABSOLUTE AUTO 2.44 K/mm3 (1.96-9.15); NEUTROPHILS PERCENT AUTO 64 % (41-73); Platelet Count 174 K/mm3 (150-400); RDW Coefficient Variation 15.3 % (11.7-14.2); RDW Standard Deviation 57.5 fL (35.1-46.3); White Blood Cell Count 3.84 K/mm3 (4.00-11.30)
[2022-03-19 20:07] LABS: Alanine Aminotransfer (ALT/SGP 20 U/L (12-78); Albumin, Blood 3.3 g/dL (3.4-5.0); Alk Phos 127 U/L (50-136); Anion Gap 5 mmol/L (6-16); Aspartate Aminotrans (AST/SGOT 21 U/L (12-37); Bilirubin, Total 0.5 mg/dL (0.1-1.0); Blood Urea Nitrogen 7 mg/dL (8-24); Bun/Creatinine Ratio 10.3 (12.0-20.0); CO2, Blood 32 mmol/L (21-32); Chloride, Blood 101 mmol/L (98-108); Creatinine, Blood 0.68 mg/dL (0.60-1.20); Globulin, Blood 3.3 g/dL (2.2-4.0); Glomerular Filtration Rate >60 (60-); Glucose, Blood 165 mg/dL (70-99); Potassium, Blood 3.8 mmol/L (3.5-5.5); Sodium, Blood 138 mmol/L (136-145); Total Protein, Blood 6.6 g/dL (6.4-8.2)
[2022-03-19] MEDS ORDERED: LEVO750 PO (22:42)
[2022-03-19] MEDS ORDERED: Prednisone50 MG PO (22:42)
== END 2022-03-19 23:11 | disposition home or self-care (01) ==
LOC: ER 18:54
PROVIDERS: Emergency Medicine
DX: J40 Bronchitis, not specified as acute or chronic (principal); E11.9 Type 2 diabetes mellitus without complications; J44.9 Chronic obstructive pulmonary disease, unspecified; I10 Essential (primary) hypertension; I48.91 Unspecified atrial fibrillation; Z79.82 Long term (current) use of aspirin; Z79.899 Other long term (current) drug therapy; Z79.52 Long term (current) use of systemic steroids; Z86.718 Personal history of other venous thrombosis and embolism; Z87.891 Personal history of nicotine dependence
CPT/HCPCS: 36415; 71260; 80053; 84484; 85025; 93005; 93010; 96374; 99285-25; A9270; J2930; Q9967

== ENCOUNTER 2022-04-06 10:57 | Emergency (ER) | payer MEDICARE ==
[~2022-04-06] VITALS: Ht 175.3 cm; Wt 88.9 kg
[~2022-04-06 10:57] MED LIST changes: +LEVO750 PO; +Prednisone50 MG PO
[2022-04-06 11:37] LABS: BASOPHILS ABSOLUTE AUTO 0.02 K/mm3 (0.00-0.23); BASOPHILS PERCENT AUTO 0 % (0-2); EOSINOPHILS ABSOLUTE AUTO 0.06 K/mm3 (0.00-0.68); EOSINOPHILS PERCENT AUTO 1 % (0-6); Hematocrit 41.1 % (37.0-53.0); Hemoglobin 13.1 g/dL (13.5-17.5); IMMATURE GRAN ABSOLUTE AUTO 0.02 K/mm3 (0.00-0.10); IMMATURE GRAN PERCENT AUTO 0 % (0-1); LYMPHOCYTES ABSOLUTE AUTO 0.67 K/mm3 (0.84-5.20); LYMPHOCYTES PERCENT AUTO 12 % (21-46); MONOCYTES ABSOLUTE AUTO 0.61 K/mm3 (0.16-1.47); MONOCYTES PERCENT AUTO 11 % (4-13); Mean Corpuscular HGB 32.8 pg (26.0-34.0); Mean Corpuscular HGB Conc 31.9 g/dL (31.5-36.5); Mean Corpuscular Volume 103 fL (80-100); Mean Platelet Volume 11.3 fL (9.1-12.4); NEUTROPHILS ABSOLUTE AUTO 4.13 K/mm3 (1.96-9.15); NEUTROPHILS PERCENT AUTO 75 % (41-73); Platelet Count 159 K/mm3 (150-400); RDW Coefficient Variation 14.6 % (11.7-14.2); RDW Standard Deviation 55.8 fL (35.1-46.3); White Blood Cell Count 5.51 K/mm3 (4.00-11.30)
[2022-04-06 11:51] LABS: Alanine Aminotransfer (ALT/SGP 26 U/L (12-78); Albumin, Blood 3.2 g/dL (3.4-5.0); Alk Phos 107 U/L (50-136); Anion Gap 3 mmol/L (6-16); Aspartate Aminotrans (AST/SGOT 24 U/L (12-37); Bilirubin, Total 0.6 mg/dL (0.1-1.0); Blood Urea Nitrogen 12 mg/dL (8-24); Bun/Creatinine Ratio 14.6 (12.0-20.0); CO2, Blood 31 mmol/L (21-32); Calcium, Blood 8.7 mg/dL (8.5-10.1); Chloride, Blood 106 mmol/L (98-108); Creatinine, Blood 0.82 mg/dL (0.60-1.20); Globulin, Blood 3.2 g/dL (2.2-4.0); Glomerular Filtration Rate >60 (60-); Glucose, Blood 108 mg/dL (70-99); Potassium, Blood 4.6 mmol/L (3.5-5.5); Sodium, Blood 140 mmol/L (136-145); Total Protein, Blood 6.4 g/dL (6.4-8.2)
[2022-04-06] MEDS ORDERED: Prednisone20 MG PO (13:13)
[2022-04-06] MEDS ORDERED: XARELTO20 M1 PO (13:13)
== END 2022-04-06 13:41 | disposition home or self-care (01) ==
LOC: ER 10:57
PROVIDERS: Emergency Medicine
DX: J44.1 Chronic obstructive pulmonary disease with (acute) exacerbation (principal); I48.91 Unspecified atrial fibrillation; Z91.14 Patient's other noncompliance with medication regimen; E11.9 Type 2 diabetes mellitus without complications; I10 Essential (primary) hypertension; G47.33 Obstructive sleep apnea (adult) (pediatric); Z86.718 Personal history of other venous thrombosis and embolism; Z79.01 Long term (current) use of anticoagulants; Z79.899 Other long term (current) drug therapy; Z79.82 Long term (current) use of aspirin; Z87.891 Personal history of nicotine dependence
CPT/HCPCS: 36415; 71045; 80053; 83880; 84484; 85025; 93005; 93010; J2930

== ENCOUNTER → 2022-06-10 | Outpatient (CLI) | payer MEDICARE ==
[~2022-06-10] MED LIST changes: +Prednisone20 MG PO
== END | disposition home or self-care (01) ==
LOC: LAB 13:23 → LAB SHORT 13:23
DX: R31.9 Hematuria, unspecified (principal)
CPT/HCPCS: 87086

== ENCOUNTER 2022-10-05 07:11 | Inpatient (IN) | payer MEDICARE ==
[~2022-10-05] VITALS: Ht 175.3 cm; Wt 95.2 kg
[~2022-10-05 07:11] MED LIST changes: +ALBU2.5V5 INH
[2022-10-05 08:33] LABS: BASOPHILS ABSOLUTE AUTO 0.02 K/mm3 (0.00-0.23); BASOPHILS PERCENT AUTO 0 % (0-2); EOSINOPHILS ABSOLUTE AUTO 0.06 K/mm3 (0.00-0.68); EOSINOPHILS PERCENT AUTO 1 % (0-6); Hematocrit 40.2 % (37.0-53.0); Hemoglobin 12.7 g/dL (13.5-17.5); IMMATURE GRAN ABSOLUTE AUTO 0.02 K/mm3 (0.00-0.10); IMMATURE GRAN PERCENT AUTO 0 % (0-1); LYMPHOCYTES PERCENT AUTO 9 % (21-46); MONOCYTES ABSOLUTE AUTO 0.69 K/mm3 (0.16-1.47); MONOCYTES PERCENT AUTO 12 % (4-13); Mean Corpuscular HGB 31.3 pg (26.0-34.0); Mean Corpuscular HGB Conc 31.6 g/dL (31.5-36.5); Mean Corpuscular Volume 99 fL (80-100); Mean Platelet Volume 11.8 fL (9.1-12.4); NEUTROPHILS ABSOLUTE AUTO 4.54 K/mm3 (1.96-9.15); NEUTROPHILS PERCENT AUTO 78 % (41-73); Platelet Count 132 K/mm3 (150-400); RDW Coefficient Variation 15.5 % (11.7-14.2); RDW Standard Deviation 56.4 fL (35.1-46.3); Red Blood Cell Count 4.06 M/mm3 (4.30-5.90); White Blood Cell Count 5.83 K/mm3 (4.00-11.30)
[2022-10-05 08:53] LABS: Albumin, Blood 3.3 g/dL (3.4-5.0); Albumin/Globulin Ratio 1.1 (0.8-1.8); Bilirubin, Total 0.5 mg/dL (0.1-1.0); Bun/Creatinine Ratio 24.9 (12.0-20.0); Calcium, Blood 9.2 mg/dL (8.5-10.1); Creatinine, Blood 0.76 mg/dL (0.60-1.20); Globulin, Blood 3.1 g/dL (2.2-4.0); Potassium, Blood 4.2 mmol/L (3.5-5.5); Total Protein, Blood 6.4 g/dL (6.4-8.2)
[2022-10-05 09:42] LABS: Base Excess Venous 9.9 mmol/L; Bicarbonate Venous 31.2 mmol/L (24.0-30.0); PCO2 Venous 63.4 mmHg (38-42); pH Blood Venous 7.36 (7.34-7.37)
--- NOTE | 2022-10-05 17:35 | NUR ---
SHIFT SUMMARY PT ARRIVED FROM THE ED TODAY, ADMITTED FOR COPD EXACERBATION AND SOB. HE HAD SMOKED 1/2 PACK OF CIGARETTES ON THURSDAY AND HAS BEEN SOB EVER SINCE. HE IS AOX4, COOPERATIVE AND CAN MAKE HIS NEEDS KNOWN. HIS HAS BEEN AT THE AND IS VERY INVOLVED IN HIS CARE. HE IS INDEPENDENT BUT ENCOURAGED TO USE THE URINAL BECAUSE HE DOES BECOME SOB AFTER EXERTION. HE MENTIONED THAT HE DOES GET NIGHT TERRORS AND MAY SLEEP WALK, ADVISED TO USE THE BED ALARM AT NIGHT IN CASE HE EXITS INVOLUNTARILY. CALL LIGHT IS PLACED WITHIN REACH.
[2022-10-06 05:22] LABS: BASOPHILS ABSOLUTE AUTO 0.01 K/mm3 (0.00-0.23); BASOPHILS PERCENT AUTO 0 % (0-2); EOSINOPHILS ABSOLUTE AUTO 0.08 K/mm3 (0.00-0.68); EOSINOPHILS PERCENT AUTO 2 % (0-6); Hematocrit 36.4 % (37.0-53.0); Hemoglobin 11.7 g/dL (13.5-17.5); IMMATURE GRAN ABSOLUTE AUTO 0.01 K/mm3 (0.00-0.10); IMMATURE GRAN PERCENT AUTO 0 % (0-1); LYMPHOCYTES ABSOLUTE AUTO 0.78 K/mm3 (0.84-5.20); LYMPHOCYTES PERCENT AUTO 20 % (21-46); MONOCYTES ABSOLUTE AUTO 0.44 K/mm3 (0.16-1.47); MONOCYTES PERCENT AUTO 11 % (4-13); Mean Corpuscular HGB 31.6 pg (26.0-34.0); Mean Corpuscular HGB Conc 32.1 g/dL (31.5-36.5); Mean Corpuscular Volume 98 fL (80-100); Mean Platelet Volume 11.8 fL (9.1-12.4); NEUTROPHILS PERCENT AUTO 66 % (41-73); Platelet Count 117 K/mm3 (150-400); RDW Coefficient Variation 15.4 % (11.7-14.2); RDW Standard Deviation 55.5 fL (35.1-46.3); White Blood Cell Count 3.92 K/mm3 (4.00-11.30)
[2022-10-06 05:40] LABS: Magnesium, Blood 1.6 mg/dL (1.6-2.4)
[2022-10-06 05:41] LABS: Bilirubin, Total 0.6 mg/dL (0.1-1.0); Bun/Creatinine Ratio 25.3 (12.0-20.0); Calcium, Blood 9.1 mg/dL (8.5-10.1); Creatinine, Blood 0.67 mg/dL (0.60-1.20); Globulin, Blood 2.9 g/dL (2.2-4.0); Phosphorus, Blood 2.6 mg/dL (2.5-4.9); Potassium, Blood 3.6 mmol/L (3.5-5.5); Total Protein, Blood 5.9 g/dL (6.4-8.2)
--- NOTE | 2022-10-06 06:30 | NUR ---
Assumed care of pt at 1900, A/Ox4. Independent to bathroom. Maintains over 92% on 2L NC or CPAP HS with 2L bleed in, LS wheeze in upper lobes and crackles at bases with nonproductive cough. Desats to mid 80's with activity with FERREIRA. SBP elevated prior to nighttime medication with SBP 160's, morning check showed 140's. Strong +2 radial pulses bl, and faint +1 pedals bl. 2+ pitting edema to BLE. Maida urine. Patient slept most of the night. Will report to dayshift RN
--- NOTE | 2022-10-06 08:00 | NUR ---
pt sitting up on the side of the bed eating breakfast, a/ox3, [place], pleasant and cooperative with care, follows commands well, denies pain at this time, lungs are dim t/o wiht exp wheeze t/o, resp even and unlabored, no cough noted, hrr, 2+ edema noted to b/l le, ppp faint, cap refill <3 sec, vs stable, afebrile, iv site to lac clear and patent, btx4, abd flat soft nontender, voids with out diff, skin c/w/d, maew, eric, call light in reach.
--- NOTE | 2022-10-06 12:30 | NUR ---
pt in to see him, pt states it's burning when he voids, will notify DrShell to see if we want a u/a, pt sitting up on the side of the bed eating lunch. call light in reach.
--- NOTE | 2022-10-06 18:10 | NUR ---
pt sits on side of bed to eat, up ad sonya in room, no acute changes this shift. spouce in to see him, answered her quesitons, call light in reach.
[2022-10-07 05:29] LABS: Source, Urine Clean Catch
[2022-10-07 05:35] LABS: Appearance, Urine Clear (Clear); Bilirubin, Urine Neg (Neg); Blood, Urine Neg (Neg); Color, Urine Yellow (P-Yellow); Glucose Qualitative, Urine 1+ (Neg); Ketones, Urine Neg (Neg); Leukocyte Esterase, Urine Neg (Neg); Nitrite, Urine Neg (Neg); Protein, Urine 1+ (Neg); Specific Gravity, Urine 1.015 (1.003-1.022); Urobilinogen, Urine NORM (Normal)
--- NOTE | 2022-10-07 05:35 | NUR ---
SHIFT SUMMARY PT A&OX4- PT INDEPENDENT IN ROOM- PT 2L NC- CBG ACHS- REPORT IS TO WATCH FOR SIGNS OF CIWA- NON NOTED T/O NIGHT PLAN FOR HOME WITH
[2022-10-07 05:49] LABS: BASOPHILS ABSOLUTE AUTO 0.02 K/mm3 (0.00-0.23); BASOPHILS PERCENT AUTO 0 % (0-2); EOSINOPHILS ABSOLUTE AUTO 0.09 K/mm3 (0.00-0.68); EOSINOPHILS PERCENT AUTO 2 % (0-6); Hematocrit 37.7 % (37.0-53.0); Hemoglobin 12.3 g/dL (13.5-17.5); IMMATURE GRAN ABSOLUTE AUTO 0.01 K/mm3 (0.00-0.10); IMMATURE GRAN PERCENT AUTO 0 % (0-1); LYMPHOCYTES ABSOLUTE AUTO 0.83 K/mm3 (0.84-5.20); LYMPHOCYTES PERCENT AUTO 18 % (21-46); MONOCYTES ABSOLUTE AUTO 0.48 K/mm3 (0.16-1.47); MONOCYTES PERCENT AUTO 10 % (4-13); Mean Corpuscular HGB 32.1 pg (26.0-34.0); Mean Corpuscular HGB Conc 32.6 g/dL (31.5-36.5); Mean Corpuscular Volume 98 fL (80-100); Mean Platelet Volume 11.5 fL (9.1-12.4); NEUTROPHILS ABSOLUTE AUTO 3.22 K/mm3 (1.96-9.15); NEUTROPHILS PERCENT AUTO 69 % (41-73); Platelet Count 126 K/mm3 (150-400); RDW Coefficient Variation 15.4 % (11.7-14.2); Red Blood Cell Count 3.83 M/mm3 (4.30-5.90); White Blood Cell Count 4.65 K/mm3 (4.00-11.30)
[2022-10-07 06:22] LABS: Bun/Creatinine Ratio 30.9 (12.0-20.0); Calcium, Blood 9.1 mg/dL (8.5-10.1); Creatinine, Blood 0.71 mg/dL (0.60-1.20); Potassium, Blood 3.7 mmol/L (3.5-5.5)
[2022-10-07] MEDS ORDERED: AZIT250 PO (12:20)
[2022-10-07] MEDS ORDERED: PRED20 PO (12:20)
[2022-10-07] MEDS ORDERED: TAMS.4ER PO (12:21)
== END 2022-10-07 14:18 | disposition home or self-care (01) | DRG 189 ==
LOC: ER 07:11 → MEDS 12:18
PROVIDERS: Internal Medicine; Student in an Organized Health Care Education/Training Program; ADMIT Family Medicine
DX: J96.21 Acute and chronic respiratory failure with hypoxia (principal); J44.1 Chronic obstructive pulmonary disease with (acute) exacerbation; I50.32 Chronic diastolic (congestive) heart failure; Z66 Do not resuscitate; I11.0 Hypertensive heart disease with heart failure; G47.33 Obstructive sleep apnea (adult) (pediatric); F17.210 Nicotine dependence, cigarettes, uncomplicated; E78.5 Hyperlipidemia, unspecified; I25.10 Atherosclerotic heart disease of native coronary artery without angina pectoris; I48.91 Unspecified atrial fibrillation; E66.3 Overweight; E11.40 Type 2 diabetes mellitus with diabetic neuropathy, unspecified; Z68.36 Body mass index [BMI] 36.0-36.9, adult; Z72.89 Other problems related to lifestyle; Z86.718 Personal history of other venous thrombosis and embolism; Z99.89 Dependence on other enabling machines and devices; Z86.010 Personal history of colon polyps; Z87.19 Personal history of other diseases of the digestive system; Z98.890 Other specified postprocedural states; Z79.01 Long term (current) use of anticoagulants; Z79.51 Long term (current) use of inhaled steroids; Z79.52 Long term (current) use of systemic steroids; Z79.82 Long term (current) use of aspirin; Z79.899 Other long term (current) drug therapy
CPT/HCPCS: 36415; 71046; 80048; 80053; 82803; 82947; 83735; 83880; 84100; 84145; 84484; 85025; 93005; 93010; 94640; 94644; 94645; 94660; 94664; 94667; 94761; 94762; 98960; 99406; A9270; J0696; J7512

== ENCOUNTER 2023-01-15 13:28 | Inpatient (IN) | payer OTHER ==
[~2023-01-15] VITALS: Ht 175.3 cm; Wt 92.2 kg
[~2023-01-15 13:28] MED LIST changes: +PRED20 PO
[2023-01-15 14:00] LABS: BASOPHILS ABSOLUTE AUTO 0.03 K/mm3 (0.00-0.23); BASOPHILS PERCENT AUTO 1 % (0-2); EOSINOPHILS ABSOLUTE AUTO 0.16 K/mm3 (0.00-0.68); EOSINOPHILS PERCENT AUTO 3 % (0-6); Hematocrit 43.2 % (37.0-53.0); Hemoglobin 14.1 g/dL (13.5-17.5); IMMATURE GRAN ABSOLUTE AUTO 0.02 K/mm3 (0.00-0.10); IMMATURE GRAN PERCENT AUTO 0 % (0-1); LYMPHOCYTES ABSOLUTE AUTO 0.75 K/mm3 (0.84-5.20); LYMPHOCYTES PERCENT AUTO 13 % (21-46); MONOCYTES ABSOLUTE AUTO 0.71 K/mm3 (0.16-1.47); MONOCYTES PERCENT AUTO 13 % (4-13); Mean Corpuscular HGB 31.8 pg (26.0-34.0); Mean Corpuscular HGB Conc 32.6 g/dL (31.5-36.5); Mean Corpuscular Volume 98 fL (80-100); Mean Platelet Volume 11.1 fL (9.1-12.4); NEUTROPHILS ABSOLUTE AUTO 4.03 K/mm3 (1.96-9.15); NEUTROPHILS PERCENT AUTO 71 % (41-73); Platelet Count 191 K/mm3 (150-400); RDW Coefficient Variation 14.6 % (11.7-14.2); RDW Standard Deviation 53.1 fL (35.1-46.3); Red Blood Cell Count 4.43 M/mm3 (4.30-5.90)
[2023-01-15 14:13] LABS: International Normalized Ratio 1.07; Prothrombin Time Results 11.2 Sec (9.7-11.5)
[2023-01-15 14:52] LABS: Albumin, Blood 3.9 g/dL (3.4-5.0); Bilirubin, Total 0.6 mg/dL (0.1-1.0); Calcium, Blood 10.1 mg/dL (8.5-10.1); Creatinine, Blood 0.94 mg/dL (0.60-1.20); Globulin, Blood 4.1 g/dL (2.2-4.0); Potassium, Blood 4.6 mmol/L (3.5-5.5)
[2023-01-15] MEDS ORDERED: GABA100 PO (17:49)
--- NOTE | 2023-01-15 18:33 | NUR ---
PCU ADMIT / END OF SHIFT PT BROUGHT TO PCU-05 BY [facility] FROM ER @ APPROX 1730. PT A&O X4, ABLE TO STAND & AMBULATE FROM [facility] TO PCU BED W/ SBA. PT SLIGHTLY UNSTEADY. PT DENYING LIGHTHEADEDNESS/DIZZINESS. PT VSS. SPO2 > 92% ON RA. MONITOR SHOWING AFIB, HR 40s-70s W/ BRIEF TOUCH DOWNS TO MID 30s. PT DENYING SYMPTOMS W/ LOW HR, STATING "NO I FEEL FINE." PT DOES REPORT CONSTANT "DULL" CP, RATING PAIN 2/10 THAT PT STATES HAS BEEN ONGOING BUT REPORTS PAIN "SHARP" "EARLIER TODAY." PT SETTLED IN TO W/ CALL LIGHT IN EACH.
[2023-01-16 01:25] LABS: BASOPHILS ABSOLUTE AUTO 0.02 K/mm3 (0.00-0.23); BASOPHILS PERCENT AUTO 0 % (0-2); EOSINOPHILS ABSOLUTE AUTO 0.16 K/mm3 (0.00-0.68); EOSINOPHILS PERCENT AUTO 3 % (0-6); Hemoglobin 12.7 g/dL (13.5-17.5); IMMATURE GRAN ABSOLUTE AUTO 0.02 K/mm3 (0.00-0.10); IMMATURE GRAN PERCENT AUTO 0 % (0-1); LYMPHOCYTES ABSOLUTE AUTO 0.86 K/mm3 (0.84-5.20); LYMPHOCYTES PERCENT AUTO 18 % (21-46); MONOCYTES ABSOLUTE AUTO 0.68 K/mm3 (0.16-1.47); MONOCYTES PERCENT AUTO 14 % (4-13); Mean Corpuscular HGB 31.4 pg (26.0-34.0); Mean Corpuscular HGB Conc 32.6 g/dL (31.5-36.5); Mean Corpuscular Volume 97 fL (80-100); Mean Platelet Volume 11.1 fL (9.1-12.4); NEUTROPHILS ABSOLUTE AUTO 3.13 K/mm3 (1.96-9.15); NEUTROPHILS PERCENT AUTO 64 % (41-73); Platelet Count 158 K/mm3 (150-400); RDW Coefficient Variation 14.7 % (11.7-14.2); RDW Standard Deviation 52.5 fL (35.1-46.3); Red Blood Cell Count 4.04 M/mm3 (4.30-5.90); White Blood Cell Count 4.87 K/mm3 (4.00-11.30)
[2023-01-16 04:41] LABS: Albumin, Blood 3.4 g/dL (3.4-5.0); Bilirubin, Total 0.7 mg/dL (0.1-1.0); Bun/Creatinine Ratio 22.8 (12.0-20.0); Calcium, Blood 9.6 mg/dL (8.5-10.1); Creatinine, Blood 0.96 mg/dL (0.60-1.20); Globulin, Blood 3.3 g/dL (2.2-4.0); Potassium, Blood 4.3 mmol/L (3.5-5.5); Total Protein, Blood 6.7 g/dL (6.4-8.2)
--- NOTE | 2023-01-16 07:24 | NUR ---
SHIFT SUMMARY PT AOX4, DYSPNEIC W/EXERTION, WORE CPAP WHILE ASLEEP. HR 30'S-70'S SOME BRIEF CP W/EXERTION THAT PT STATED OCCURED WITH DEEP BREATHS. HR DOWN TO 28 BPM THIS AM AT 0300, APPEARED TO BE CAUSED BY TWO PAUSES BETWEEN BEATS 2.7-3.2 SECONDS. CONTINUED PAUSES THIS AM HR DOWN IN LOWER 30'S, PT DENIES ANY SX W/LOW HR THIS AM. ATROPINE AT BEDSIDE.
--- NOTE | 2023-01-16 17:40 | NUR ---
SHIFT NOTE PT REPORTED ONE EPISODE OF CP THIS AFTERNOON WHICH HAS SINCE RESOLVED. HE REPORTS INTERMITTENT DIZZINESS WHEN BURPING. HR RANGE 40-90 DURING THIS SHIFT WITH A SLOW INCREASE IN HIS RETING HR WHICH IS CURRETNTLY 93. PT IS ALERT, HE IS ANSWERING QUESTIONS APPROPRIATELY, S/O IS AT BEDSIDE SHE REPORTS PT "ISN'T TRACKING" WHICH IS NOT NOTED BY THIS RN, IT IS NOTED THAT PT BECOMES MORE ANXIOUS WHEN S/O IN ROOM. PT AMBULATED TO BATHROOM WITH EVEN STEADY GAIT, HE DENIES ANY DIZZINESS WITH AMBULATION BUT REPORTS SOME SOB WITH AMBULATION, NO CHANGE IN HR DURING AMBULATION. VSS OTHERWISE.
--- NOTE | 2023-01-16 18:11 | NUR ---
Pt. is sitting up on the side of his bed finishing dinner when he welcomes my visit. Pt. is pleasant, but was not wearing his hearing aids, so we had to talk loud. Pt. verbalized that he in the last few years had lost his and daughter. Condolences and Pastoral correctional counselor/case manager is given. Pt. displays evidence of strong motivation to recover. While his lashell is not a central part of his life, Pt. welcomed prayer for his recovery. Pt. verbalized gratitude for the spiritual care visit.
--- NOTE | 2023-01-16 22:14 | NUR ---
ASSUMPTION OF CARE THIS RN ASSUMED CARE OF PATIENT AT 1900. REPORT TAKEN FROM SYLVIE LYNN. PATIENT ALERT AND ORIENTED FULLY. [place]. ANSWERING QUESTIONS APPROPRIATELY, ABLE TO MAKE NEEDS KNOWN. BP STABLE WITH SBP 120'S. AFIB ON THE MONITOR WITH HR 70-80'S, WITH OCCASIONAL PAUSES WHILE SLEEPING. PATIENT DENIES CHEST PAIN/PRESSURE AT THIS TIME BUT REPORTS EPISODE OF BRIEF CHEST PAIN AROUND 1900 WHEN HE "REACHED OVER TO GRAB HIS CANDY OFF HIS TABLE". PATIENT STATED THAT THE PAIN WAS SHARP AND RESOLVED QUICKLY AFTER 2-3 MINUTES. PATIENT REPORTS SOB WITH EXERTION WITH NOTED TACHYPNEA AND PURSED LIP BREATHING WITH ACTIVITY, PATIENT STATES THIS IS NORMAL FOR HIM. PATIENT ALSO STATING THAT WHEN HE MOVES TOO QUICKLY TO DIFFERENT POSITIONS HE FEELS DIZZY. SPO2 >92% ON RA. AFEBRILE. BED IN LOWEST POSITION AND CALL LIGHT WITHIN REACH.
[2023-01-17 03:48] LABS: BASOPHILS ABSOLUTE AUTO 0.02 K/mm3 (0.00-0.23); BASOPHILS PERCENT AUTO 0 % (0-2); EOSINOPHILS ABSOLUTE AUTO 0.18 K/mm3 (0.00-0.68); EOSINOPHILS PERCENT AUTO 4 % (0-6); Hematocrit 41.8 % (37.0-53.0); Hemoglobin 13.7 g/dL (13.5-17.5); IMMATURE GRAN ABSOLUTE AUTO 0.02 K/mm3 (0.00-0.10); IMMATURE GRAN PERCENT AUTO 0 % (0-1); LYMPHOCYTES ABSOLUTE AUTO 0.71 K/mm3 (0.84-5.20); LYMPHOCYTES PERCENT AUTO 14 % (21-46); MONOCYTES ABSOLUTE AUTO 0.67 K/mm3 (0.16-1.47); MONOCYTES PERCENT AUTO 13 % (4-13); Mean Corpuscular HGB 31.4 pg (26.0-34.0); Mean Corpuscular HGB Conc 32.8 g/dL (31.5-36.5); Mean Corpuscular Volume 96 fL (80-100); Mean Platelet Volume 10.9 fL (9.1-12.4); NEUTROPHILS ABSOLUTE AUTO 3.49 K/mm3 (1.96-9.15); NEUTROPHILS PERCENT AUTO 69 % (41-73); Platelet Count 183 K/mm3 (150-400); RDW Coefficient Variation 14.7 % (11.7-14.2); RDW Standard Deviation 51.8 fL (35.1-46.3); Red Blood Cell Count 4.37 M/mm3 (4.30-5.90); White Blood Cell Count 5.09 K/mm3 (4.00-11.30)
[2023-01-17 04:33] LABS: Bun/Creatinine Ratio 24.6 (12.0-20.0); Calcium, Blood 9.4 mg/dL (8.5-10.1); Creatinine, Blood 0.89 mg/dL (0.60-1.20); Magnesium, Blood 2.1 mg/dL (1.6-2.4); Phosphorus, Blood 3.7 mg/dL (2.5-4.9); Potassium, Blood 3.9 mmol/L (3.5-5.5)
--- NOTE | 2023-01-17 04:53 | NUR ---
SHIFT SUMMARY PATIENT Nilda&OShell TODD. REPORTED 2 OCCASIONS OF CHEST PAIN AFTER THE FACT WHICH HE DESCRIBED SHARP THAT OCCURRED WHEN THE PATIENT WAS TURNING HIS HEAD AND REACHING FOR SOMETHING OFF OF HIS TABLE; HE REPORTED THAT IT ONLY LASTED 20-30 SECONDS. PATIENT CONTINUES TO BE IN AFIB WITH HR 60-70'S THROUGHOUT THIS SHIFT. OCCASIONALLY LEÓN WITH HR 40-50'S DURING EPISODES OF 1-2 SECONDS PAUSES. PATIENT DENIES SYMPTOMS AND DOES NOT APPEAR TO BE IN ANY DISTRESS. BP STABLE. DENIES DIZZINESS WITH WALKING; STEADY GAIT NOTED. ON RA DURING THIS SHIFT WITH SPO2 >92%; DYSPNEIC WITH EXERTION. CPAP WITH 2L BLEED IN WORN THROUGHOUT THE SHIFT WHILE PATIENT SLEEPING. PATIENT CALLING APPROPRIATELY. CONTINENT OF B/B. BED IN LOWEST POSITION AND CALL LIGHT WITHIN REACH. THIS RN WILL CONTINUE TO MONITOR UNTIL SHIFT CHANGE AT 0700.
[2023-01-17 14:01] LABS: CHOL/HDL RATIO 3.8; Cholesterol 149 mg/dL (50-200); HDL Cholesterol 39 mg/dL (>39); LDL/HDL RATIO 2.4; Low Density Lipoprotein Chol 93 mg/dL (0-110); Triglycerides 84 mg/dL (30-160); Very Low Density Lipoprot Chol 16 mg/dL (6-32)
--- NOTE | 2023-01-17 18:11 | NUR ---
shift note PT DID HAVE AN EPISODE OF CP THIS EVENING THAT HE REPORTED 5/10 THAT DID REQUIRE 1 TAB OF NITRO WHICH RESOLVED WITH THE 1 TAB. VSS THROUGHOUT THE EVENT. PT'S HR HAS RANGED FROM 40-90 T/O THE DAY. HE DID HAVE AN EPISODE OF BRADYCARDIA THIS AM IN WHICH HE EAS SYMPTOMATIC, BUT THERE WERE NO OTHER REPORTED EVENTS LIKE THIS FROM PT. A/O X4. [place]. VSS. NADN. SOB NOTED WITH AMBULATION THAT IS NOT CHANGED FORM THE PRIVIOUS SHIFT
--- NOTE | 2023-01-17 22:29 | NUR ---
ASSUMPTION OF CARE THIS RN ASSUMED CARE OF PATIENT AT 1900. REPORT TAKEN FROM SYLVIE LYNN. PATIENT CONTINUES TO BE IN AFIB WITH HR 70-80'S. NO NOTED EPISODES OF BRADYCARDIA D/T PAUSES NOTED SO FAR DURING THIS SHIFT. BP STABLE. AFEBRILE. SPO2 >90% ON RA. CPAP AT BEDSIDE WHEN PATIENT GOES TO SLEEP. PATIENT A&O, CALLING APPROPRIATELY. UP IN CHAIR AT THIS TIME WATCHING TV. BED IN LOWEST POSITION AND CALL LIGHT WITHIN REACH.
[2023-01-18 03:49] LABS: BASOPHILS ABSOLUTE AUTO 0.03 K/mm3 (0.00-0.23); BASOPHILS PERCENT AUTO 1 % (0-2); EOSINOPHILS ABSOLUTE AUTO 0.18 K/mm3 (0.00-0.68); EOSINOPHILS PERCENT AUTO 3 % (0-6); Hematocrit 44.5 % (37.0-53.0); Hemoglobin 14.5 g/dL (13.5-17.5); IMMATURE GRAN ABSOLUTE AUTO 0.02 K/mm3 (0.00-0.10); IMMATURE GRAN PERCENT AUTO 0 % (0-1); LYMPHOCYTES ABSOLUTE AUTO 1.08 K/mm3 (0.84-5.20); LYMPHOCYTES PERCENT AUTO 20 % (21-46); MONOCYTES ABSOLUTE AUTO 0.79 K/mm3 (0.16-1.47); MONOCYTES PERCENT AUTO 14 % (4-13); Mean Corpuscular HGB 31.6 pg (26.0-34.0); Mean Corpuscular HGB Conc 32.6 g/dL (31.5-36.5); Mean Corpuscular Volume 97 fL (80-100); Mean Platelet Volume 10.4 fL (9.1-12.4); NEUTROPHILS ABSOLUTE AUTO 3.45 K/mm3 (1.96-9.15); NEUTROPHILS PERCENT AUTO 62 % (41-73); Platelet Count 187 K/mm3 (150-400); RDW Coefficient Variation 14.6 % (11.7-14.2); RDW Standard Deviation 52.3 fL (35.1-46.3); Red Blood Cell Count 4.59 M/mm3 (4.30-5.90); White Blood Cell Count 5.55 K/mm3 (4.00-11.30)
[2023-01-18 04:22] LABS: Bun/Creatinine Ratio 26.5 (12.0-20.0); Calcium, Blood 9.9 mg/dL (8.5-10.1); Creatinine, Blood 0.87 mg/dL (0.60-1.20); Potassium, Blood 4.5 mmol/L (3.5-5.5)
--- NOTE | 2023-01-18 05:24 | NUR ---
SHIFT SUMMARY NO ACUTE CHANGES OVERNIGHT. PATIENT DENIED CHEST PAIN/PRESSURE. REPORTED SHARP PAIN IN UPPER CHEST WHEN MOVING OR REACHING THAT WAS BRIEF AND RESOLVED QUICKLY. SEVERAL EPISODES OF BRADYCARDIA D/T PAUSES WITH HR REACHING ABOUT 37. OTHERWISE VSS THROUGHOUT THE SHIFT. DENIED S/S OF CARDIAC DISTRESS DURING LEÓN EPISODES. A&O. CALLING APPROPRIATELY. BED IN LOWEST POSITION AND CALL LIGHT WITHIN REACH. THIS RN WILL CONTINUE TO MONITOR UNTIL SHIFT CHANGE AT 0700.
--- NOTE | 2023-01-18 17:57 | NUR ---
SHIFT NOTE PT A/O X4. HE IS VERY KAW. HE DENIES CP T/O THE DAY TODAY. HR HAS RANGED FROM 40s-90s. SOB REMAINS WITH AMBULATION AND IS NOT CHANGED. VSS. NADN. PT AWAITING ANGIO IN THE AM, WILL BE NPO AT [facility]. PER S/O PT "IS OFF" AND "NOT TRACKING" PT APPEARS TO HAVE THE SAME MENTATION TODAY HE HAS THE PAST 3 DAYS, S/O UPDATES DR EHRNÁNDEZ OF HER CONCERN OF MENTATION CHANGE SHE NOTED. OTHERWISE THERE ARE NO CHANGES TO DISCUSS FROM THIS SHIFT.
[2023-01-19 03:55] LABS: BASOPHILS ABSOLUTE AUTO 0.03 K/mm3 (0.00-0.23); BASOPHILS PERCENT AUTO 1 % (0-2); EOSINOPHILS ABSOLUTE AUTO 0.16 K/mm3 (0.00-0.68); EOSINOPHILS PERCENT AUTO 3 % (0-6); Hematocrit 43.1 % (37.0-53.0); Hemoglobin 14.3 g/dL (13.5-17.5); IMMATURE GRAN ABSOLUTE AUTO 0.01 K/mm3 (0.00-0.10); IMMATURE GRAN PERCENT AUTO 0 % (0-1); LYMPHOCYTES ABSOLUTE AUTO 0.92 K/mm3 (0.84-5.20); LYMPHOCYTES PERCENT AUTO 16 % (21-46); MONOCYTES ABSOLUTE AUTO 0.73 K/mm3 (0.16-1.47); MONOCYTES PERCENT AUTO 13 % (4-13); Mean Corpuscular HGB 31.4 pg (26.0-34.0); Mean Corpuscular HGB Conc 33.2 g/dL (31.5-36.5); Mean Corpuscular Volume 95 fL (80-100); Mean Platelet Volume 10.7 fL (9.1-12.4); NEUTROPHILS ABSOLUTE AUTO 3.76 K/mm3 (1.96-9.15); NEUTROPHILS PERCENT AUTO 67 % (41-73); Platelet Count 177 K/mm3 (150-400); RDW Coefficient Variation 14.6 % (11.7-14.2); Red Blood Cell Count 4.55 M/mm3 (4.30-5.90); White Blood Cell Count 5.61 K/mm3 (4.00-11.30)
[2023-01-19 04:09] LABS: Bun/Creatinine Ratio 26.8 (12.0-20.0); Calcium, Blood 9.9 mg/dL (8.5-10.1); Creatinine, Blood 0.82 mg/dL (0.60-1.20); Potassium, Blood 4.2 mmol/L (3.5-5.5)
--- NOTE | 2023-01-19 04:54 | NUR ---
SHIFT SUMMARY PT A&Ox4, CALLS AND COMMUNICATES NEEDS APPROPRIATELY. VSS, SpO2> 92% RA OR CPAP WITH 2L BLEED IN. DENIES SOB. BP STABLE, AFIB 50-90's, TOUCHING INTO 30's TWICE WHILE ASLEEP. DENIES CP/PRESSURE. PT SBA TO BATHROOM, CONTINENT OF URINE, NO BM THIS SHIFT. PT NPO AT 0000. NO OTHER EVENTS, WILL REPORT TO ONCOMING RN.
--- NOTE | 2023-01-19 10:57 | NUR ---
AM CARE PT WAS HAVING CHEST PRESSURE AT APPROX 1000A IT STARTED WHEN PT GOT BACK IN BED AFTER GETTING UP TO USE THE BATHROOM, PT REFUSED ANY PAIN MEDS PT STATED IT DOESNT BOTHER, COMMUNICATED TO THE HOSPICE REGISTERED NURSE PT IS WAITING FOR ANGIO TODAY, NO ESTIMATED TIME YET. VITALS HRR 50-90'S, SATS ABOVE 95% ON RA, GETS MILDLY SOB WITH EXERTION, SBP 120'S, AFEBRILE. PT NOW BACK IN BED RESTING, WITH CALL LIGHTS IN REACH, ABLE TO MAKE NEEDS KNOWN WILL CONTINUE TO MONITOR PT
--- NOTE | 2023-01-19 13:38 | NUR ---
PT CURRENTLY TAKEN TO CERAMICS TEACHER AT THIS TIME FOR ANGIO. AT THE BEDSIDE CAME ALONG AT THE PROCEDURE UNIT AT THE WAITING AREA.
--- NOTE | 2023-01-19 18:37 | NUR ---
PT SUMMARY: PT ARRIVED BACK FRO [employer]ICONDU[employer] PACKAGES LEAK TESTER SINCE 1430 RIGHT RADIAL SITE, NO INTERVENTION DONE, NO BLOCKAGE. RIGHT RADIAL SITE NOW FULLY RECOVERED CLEAR DRESSING IN PLACE AND IMMOBILIZER. TO KEEP PT NPO AFTER MIDNIGHT TONIGHT FOR PACER PLACEMENT TOMORROW, AWARE OF THE PLANS WAS AT THE WAITING ROOM PRE AND POST PROCEDURE TODAY. VITALS HAS BEEN STABLE. DENIES CHEST PAIN/PRESSURE POST PROCEDURE. TO REPORT TO ONCOMING SHIFT
--- NOTE | 2023-01-20 04:32 | NUR ---
SHIFT SUMMARY PT A&Ox4, CALLS AND COMMUNICATES NEEDS APPROPRIATELY. VSS, SpO2> 92% RA OR CPAP WITH 2L BLEED IN. DENIES SOB. BP STABLE, AFIB 50-90's, TOUCHING INTO 30's ONCE WHILE ASLEEP. PT REPORTED MILD CP AT START OF SHIFT THAT RESOLVED WITH REST. PT SBA TO BATHROOM, CONTINENT OF URINE, NO BM THIS SHIFT. PT NPO AT 0000. NO OTHER EVENTS, WILL REPORT TO ONCOMING RN.
[2023-01-20 04:42] LABS: Albumin, Blood 3.3 g/dL (3.4-5.0); Anion Gap 3 mmol/L (6-16); Blood Urea Nitrogen 27 mg/dL (8-24); CO2, Blood 32 mmol/L (21-32); Calcium, Blood 9.6 mg/dL (8.5-10.1); Chloride, Blood 103 mmol/L (98-108); Creatinine, Blood 0.93 mg/dL (0.60-1.20); Glomerular Filtration Rate 84 (60-); Glucose, Blood 149 mg/dL (70-99); Potassium, Blood 4.2 mmol/L (3.5-5.5); Sodium, Blood 138 mmol/L (136-145)
--- NOTE | 2023-01-20 09:40 | NUR ---
PT ARRIVED BACK IN THE ROOM POST PACEMAKER PLACEMENT SINGLE LEAD. LEFT UPPER CHEST WALL INCISIN SITE CDI, ICE IN PLACE. LEFT ARM SLING ON, PT COMPLIANT ON NOT USING THE LEFT ARM, SOMETIMES NEEDS TO BE REMINDED, BOTH AT THE BEDSDIE AND THE PT WAS GIVEN INFORMATION POST PACER PLACEMENT. PT DENIES ANY CHEST PAIN JUST TENDERNESS ON THE SITE, ICE WAS HELPFUL. NO OTHER ISSUES REPORTED AT THIS TIME, PT IN BED RESTING EATING BREAKFAST TOLERATED WELL. WILL CONTINUE TO MONITOR
--- NOTE | 2023-01-20 18:47 | NUR ---
PT DISCHARGE TO HOME TODAY WITH DISCHARGE ORDERS. DR GOMEZ AND DR CASE WAS ABLE TO TALK TO THE PT AND PROVIDED MORE INFORMATION AND INSTRUCTIONS. PROVIDED PRINTED POST PACER AND ANGIO INSTRUCTIONS WELL, WENT OVER IT WITH THE PT. PT VERBALIZED UNDERSTANDING, NO NEW MEDICATION ON THE DISCHARGE MEDS TO RESTART XARELTO ON Thursday01/22/23, TO CALL AND MAKE WOUND CHECK, CARDIOLOGY AND PCP APPT [facility]. PACER SITE WITH DRESSING CDI DR GOMEZ ALSO REASSESSED, CHEST XRAY DONE LEADS IN PLACE VERIFIED BY DR GOMEZ. ABDOMINAL SLING IN PLACE TO IMMOBILIZE LEFT ARM. NO OTHER ISSUES PRIOR TO PT DISCHARGING, ALL BELONGINGS SENT WITH THE PT, ACCOMPANIED BY PCT VIA WHEELCHAIR
== END 2023-01-20 18:14 | disposition home or self-care (01) | DRG 243 ==
LOC: ER 13:28 → PCU 13:29
PROVIDERS: Family Medicine; Student in an Organized Health Care Education/Training Program; ADMIT Internal Medicine
PROC: 5A09357 Assistance with Respiratory Ventilation, Less than 24 Consecutive Hours, Continuous Positive Airway Pressure (ICD-10-PCS; 2023-01-17)
PROC: 4A023N7 Measurement of Cardiac Sampling and Pressure, Left Heart, Percutaneous Approach (ICD-10-PCS; 2023-01-19)
PROC: B211YZZ Fluoroscopy of Multiple Coronary Arteries using Other Contrast (ICD-10-PCS; 2023-01-19)
PROC: 0JH604Z Insertion of Pacemaker, Single Chamber into Chest Subcutaneous Tissue and Fascia, Open Approach (ICD-10-PCS; principal; 2023-01-20)
PROC: 02HK3JZ Insertion of Pacemaker Lead into Right Ventricle, Percutaneous Approach (ICD-10-PCS; 2023-01-20)
PROC: B51NYZZ Fluoroscopy of Left Upper Extremity Veins using Other Contrast (ICD-10-PCS; 2023-01-20)
PROC: B517YZZ Fluoroscopy of Left Subclavian Vein using Other Contrast (ICD-10-PCS; 2023-01-20)
DX: I49.5 Sick sinus syndrome (principal); I25.110 Atherosclerotic heart disease of native coronary artery with unstable angina pectoris; I48.20 Chronic atrial fibrillation, unspecified; J96.11 Chronic respiratory failure with hypoxia; I50.32 Chronic diastolic (congestive) heart failure; G47.33 Obstructive sleep apnea (adult) (pediatric); J44.9 Chronic obstructive pulmonary disease, unspecified; I11.0 Hypertensive heart disease with heart failure; E78.5 Hyperlipidemia, unspecified; E11.42 Type 2 diabetes mellitus with diabetic polyneuropathy; Z86.718 Personal history of other venous thrombosis and embolism; Z99.81 Dependence on supplemental oxygen; Z79.899 Other long term (current) drug therapy; Z79.01 Long term (current) use of anticoagulants; Z79.52 Long term (current) use of systemic steroids; Z79.51 Long term (current) use of inhaled steroids; Z79.2 Long term (current) use of antibiotics; Z98.890 Other specified postprocedural states; Z87.891 Personal history of nicotine dependence
CPT/HCPCS: 33207; 36415; 71045; 71046; 76937; 80048; 80053; 80061; 80069; 83690; 83735; 84100; 84484; 85025; 85610; 92978; 93005; 93010; 93306; 93458; 94640; 94660; 94664; 94760; 94762; 96374; 99152; 99153; 99285-25; A9270; C1753; C1769; C1786; C1874; C1887; C1894; C1898; G0378; J0690; J1644; J1650; J1885; J2250; J3010; J7030; J7040; J7050; Q9967

== ENCOUNTER → 2023-04-02 | Outpatient (CLI) | payer OTHER ==
[~2023-04-02] MED LIST changes: +DOXY100 PO; +GABA100 PO; +METF500C PO; +NICO21TP TOP
== END | disposition home or self-care (01) ==
LOC: LAB SHORT 07:54 → LAB 07:54
DX: L60.2 Onychogryphosis (principal); B35.1 Tinea unguium
CPT/HCPCS: 88305; 88312

== ENCOUNTER 2023-05-16 19:31 | Inpatient (IN) | payer OTHER ==
[~2023-05-16] VITALS: Ht 175.3 cm; Wt 94.3 kg
[2023-05-16 20:01] LABS: BASOPHILS ABSOLUTE AUTO 0.02 K/mm3 (0.00-0.23); BASOPHILS PERCENT AUTO 1 % (0-2); EOSINOPHILS PERCENT AUTO 3 % (0-6); Hematocrit 40.9 % (37.0-53.0); Hemoglobin 13.3 g/dL (13.5-17.5); IMMATURE GRAN ABSOLUTE AUTO 0.01 K/mm3 (0.00-0.10); IMMATURE GRAN PERCENT AUTO 0 % (0-1); LYMPHOCYTES ABSOLUTE AUTO 0.56 K/mm3 (0.84-5.20); LYMPHOCYTES PERCENT AUTO 18 % (21-46); MONOCYTES ABSOLUTE AUTO 0.55 K/mm3 (0.16-1.47); MONOCYTES PERCENT AUTO 18 % (4-13); Mean Corpuscular HGB 31.6 pg (26.0-34.0); Mean Corpuscular HGB Conc 32.5 g/dL (31.5-36.5); Mean Corpuscular Volume 97 fL (80-100); Mean Platelet Volume 10.7 fL (9.1-12.4); NEUTROPHILS ABSOLUTE AUTO 1.81 K/mm3 (1.96-9.15); NEUTROPHILS PERCENT AUTO 59 % (41-73); Platelet Count 154 K/mm3 (150-400); RDW Coefficient Variation 14.9 % (11.7-14.2); RDW Standard Deviation 53.3 fL (35.1-46.3); Red Blood Cell Count 4.21 M/mm3 (4.30-5.90); White Blood Cell Count 3.05 K/mm3 (4.00-11.30)
[2023-05-16 20:13] LABS: Albumin, Blood 3.7 g/dL (3.4-5.0); Albumin/Globulin Ratio 1.1 (0.8-1.8); Bilirubin, Total 0.5 mg/dL (0.1-1.0); Bun/Creatinine Ratio 15.9 (12.0-20.0); Calcium, Blood 9.7 mg/dL (8.5-10.1); Creatinine, Blood 0.88 mg/dL (0.60-1.20); Globulin, Blood 3.4 g/dL (2.2-4.0); Potassium, Blood 4.4 mmol/L (3.5-5.5); Total Protein, Blood 7.1 g/dL (6.4-8.2)
[2023-05-16] MEDS ORDERED: DULO30 PO (21:54)
[2023-05-16 22:33] VITALS: BP 182/78
[2023-05-16 23:33] VITALS: BP 159/81
[2023-05-17 04:22] VITALS: BP 162/90
[2023-05-17 05:50] LABS: BASOPHILS PERCENT AUTO 0 % (0-2); EOSINOPHILS ABSOLUTE AUTO 0.02 K/mm3 (0.00-0.68); EOSINOPHILS PERCENT AUTO 1 % (0-6); Hematocrit 38.4 % (37.0-53.0); Hemoglobin 12.3 g/dL (13.5-17.5); IMMATURE GRAN ABSOLUTE AUTO 0.01 K/mm3 (0.00-0.10); IMMATURE GRAN PERCENT AUTO 0 % (0-1); LYMPHOCYTES ABSOLUTE AUTO 0.33 K/mm3 (0.84-5.20); LYMPHOCYTES PERCENT AUTO 9 % (21-46); MONOCYTES ABSOLUTE AUTO 0.19 K/mm3 (0.16-1.47); MONOCYTES PERCENT AUTO 5 % (4-13); Mean Corpuscular HGB 31.1 pg (26.0-34.0); Mean Corpuscular Volume 97 fL (80-100); NEUTROPHILS ABSOLUTE AUTO 3.05 K/mm3 (1.96-9.15); NEUTROPHILS PERCENT AUTO 85 % (41-73); Platelet Count 137 K/mm3 (150-400); RDW Standard Deviation 53.9 fL (35.1-46.3); Red Blood Cell Count 3.96 M/mm3 (4.30-5.90)
[2023-05-17 06:21] LABS: Albumin, Blood 3.5 g/dL (3.4-5.0); Albumin/Globulin Ratio 1.1 (0.8-1.8); Bilirubin, Total 0.5 mg/dL (0.1-1.0); Bun/Creatinine Ratio 20.2 (12.0-20.0); Calcium, Blood 9.6 mg/dL (8.5-10.1); Creatinine, Blood 0.79 mg/dL (0.60-1.20); Globulin, Blood 3.3 g/dL (2.2-4.0); Potassium, Blood 4.9 mmol/L (3.5-5.5); Total Protein, Blood 6.8 g/dL (6.4-8.2)
[2023-05-17 07:17] VITALS: BP 156/79
--- NOTE | 2023-05-17 07:36 | NUR ---
ADMITTED AROUND 2200 LAST NIGHT. AMBULATES WELL BUT HAS RECENT HISTORY OF FREQUENT FALLS, BED ALARM IN PLACE AND SBA PROVIDED. PT IS AO, PLEASANT, COOPERATIVE. VSS ON 2L O2, CPAP IN PLACE AT NIGHT. SKIN IS CLEAR BUT PATIENT HAS A POUCH ON R UPPER SIDE POSSIBLY DUE TO HX OF HERNIATED LUNG. UNEVENTFUL NIGHT.
--- NOTE | 2023-05-17 14:08 | NUR ---
SPUTUM AND UA SENT FOR LABS
[2023-05-17 15:36] VITALS: BP 119/57
--- NOTE | 2023-05-17 17:43 | NUR ---
SHIFT SUMMARY PATIENT UP IN ROOM INDEPENDENTLY WITH STAND BY ASSIST. PATIENT CURRENTLY ON HOME O2 SETTING. PATIENT CONTINUES TO BE DECREASED AND WHEEZES ESPECIALLY WITH EXCERTION. SPUTUM AND URINE SENT TO LAB. VSS. HERNIA OF R LUNG NOTED. NO REDNESS OR PAIN IN THAT AREA. PATIENT [place] AND FORGETFUL. STATES HE HAS SUN DOWNERS AT HOME AND HAS DIFFICULTY SLEEPING.
[2023-05-17 18:55] VITALS: BP 148/66
[2023-05-18 03:33] VITALS: BP 163/80
--- NOTE | 2023-05-18 04:55 | NUR ---
SUMMARY: PT A/OX4, IS MILDLY FORGETFUL AT TIMES BUT CALLS APPROPRIATELY TO SPECIFY NEEDS. HE'S SBA TO TOILET AND USED URINAL AD SANTA. PT REMAINS ON 2L O2 VIA NC/CPAP BLEED-IN PER HOME SETINGS. INTERMITTENT WHEEZES PERSIST W/NEBS AND MEDS RECIEVED BY RT PER EMAR. SPUTUM CX PENDING. PM NOTED AND PT ON XARELTO FOR AFIB. NO ACUTE CHANGES, VSS/AFEBRILE. WCTM AND REPORT TO DAY RN.
[2023-05-18 05:09] LABS: BASOPHILS PERCENT AUTO 0 % (0-2); EOSINOPHILS ABSOLUTE AUTO 0.01 K/mm3 (0.00-0.68); EOSINOPHILS PERCENT AUTO 0 % (0-6); Hematocrit 35.1 % (37.0-53.0); Hemoglobin 11.5 g/dL (13.5-17.5); IMMATURE GRAN ABSOLUTE AUTO 0.01 K/mm3 (0.00-0.10); IMMATURE GRAN PERCENT AUTO 0 % (0-1); LYMPHOCYTES ABSOLUTE AUTO 0.59 K/mm3 (0.84-5.20); LYMPHOCYTES PERCENT AUTO 15 % (21-46); MONOCYTES ABSOLUTE AUTO 0.49 K/mm3 (0.16-1.47); MONOCYTES PERCENT AUTO 12 % (4-13); Mean Corpuscular HGB 31.2 pg (26.0-34.0); Mean Corpuscular HGB Conc 32.8 g/dL (31.5-36.5); Mean Corpuscular Volume 95 fL (80-100); Mean Platelet Volume 10.8 fL (9.1-12.4); NEUTROPHILS ABSOLUTE AUTO 2.95 K/mm3 (1.96-9.15); NEUTROPHILS PERCENT AUTO 73 % (41-73); Platelet Count 142 K/mm3 (150-400); RDW Coefficient Variation 14.6 % (11.7-14.2); RDW Standard Deviation 51.1 fL (35.1-46.3); Red Blood Cell Count 3.69 M/mm3 (4.30-5.90); White Blood Cell Count 4.05 K/mm3 (4.00-11.30)
[2023-05-18 05:46] LABS: Albumin, Blood 3.4 g/dL (3.4-5.0); Anion Gap 5 mmol/L (6-16); Blood Urea Nitrogen 15 mg/dL (8-24); Bun/Creatinine Ratio 17.2 (12.0-20.0); CO2, Blood 31 mmol/L (21-32); Calcium, Blood 9.2 mg/dL (8.5-10.1); Chloride, Blood 107 mmol/L (98-108); Creatinine, Blood 0.87 mg/dL (0.60-1.20); Glomerular Filtration Rate 88 (60-); Glucose, Blood 136 mg/dL (70-99); Phosphorus, Blood 3.1 mg/dL (2.5-4.9); Potassium, Blood 3.8 mmol/L (3.5-5.5); Sodium, Blood 143 mmol/L (136-145)
[2023-05-18 07:07] VITALS: BP 157/71
[2023-05-18 15:39] VITALS: BP 132/68
--- NOTE | 2023-05-18 17:21 | NUR ---
SHIFT SUMMARY PATIENT IS ALERT AND ORIENTED WITH OCCASIONAL CONFUSION. PATIENT HAS HAD NO ACUTE EVENTS THIS SHIFT. VITAL SIGNS REVIEWED. PATIENT HAS NOT COMPLAINED OF SOB, NAUSEA, SOB OR VOMITTING THIS SHIFT. PATIENT REMAINS ON 3L NC SATTING GREATER THAN 92. PATIENT HAS BEEN A STANDBY ASSIST TO BATHROOM WITH MINIMAL ASSISTANCE. BED IN LOCKED AND LOWEST POSITION. CALL LIGHT IN PLACE. WILL MONITOR UNTIL SHIFT CHANGE.
[2023-05-18 19:40] VITALS: BP 145/106
--- NOTE | 2023-05-19 06:05 | NUR ---
SUMMARY: PT A/OX3-4, IS MILDLY FORGETFULL AT TIMES BUT SPECIFIES NEEDS AND IS PLEASANT AND COOPERTIVE W/CARE. HE'S UP W/SBA TO TOILET AND USED URINAL AD SANTA. IV ABX RECEIVED FOR PNM AND SPO2 REMAINS WNL ON 2-4L VIA NC/CPAP BLEED IN, 2L IS BASELINE. RT PROVIDED NEBS/BX TX'S PER EMAR AND NO WHEEZES AUSCULTATED BY LEAH JOHNSON. HE'S DENIED SOB AND DYSPNEA BUT DID RECEIVE TYLENOL PER PT REQUEST FOR TOLERABLE RELIEF OF RIB PAIN FROM [facility] SPECIAL PROCEDURES TECH COUGH. NO ACUTE CHANGES, VSS/AFEBRILE. WCTM AND REPORT TO DAY RN.
[2023-05-19 06:12] LABS: BASOPHILS ABSOLUTE AUTO 0.01 K/mm3 (0.00-0.23); BASOPHILS PERCENT AUTO 0 % (0-2); EOSINOPHILS ABSOLUTE AUTO 0.02 K/mm3 (0.00-0.68); EOSINOPHILS PERCENT AUTO 0 % (0-6); IMMATURE GRAN ABSOLUTE AUTO 0.01 K/mm3 (0.00-0.10); IMMATURE GRAN PERCENT AUTO 0 % (0-1); LYMPHOCYTES ABSOLUTE AUTO 0.72 K/mm3 (0.84-5.20); LYMPHOCYTES PERCENT AUTO 16 % (21-46); MONOCYTES ABSOLUTE AUTO 0.41 K/mm3 (0.16-1.47); MONOCYTES PERCENT AUTO 9 % (4-13); Mean Corpuscular HGB 31.3 pg (26.0-34.0); Mean Corpuscular HGB Conc 32.4 g/dL (31.5-36.5); Mean Corpuscular Volume 96 fL (80-100); Mean Platelet Volume 10.2 fL (9.1-12.4); NEUTROPHILS ABSOLUTE AUTO 3.42 K/mm3 (1.96-9.15); NEUTROPHILS PERCENT AUTO 75 % (41-73); Platelet Count 151 K/mm3 (150-400); RDW Coefficient Variation 14.6 % (11.7-14.2); RDW Standard Deviation 51.6 fL (35.1-46.3); Red Blood Cell Count 3.84 M/mm3 (4.30-5.90); White Blood Cell Count 4.59 K/mm3 (4.00-11.30)
[2023-05-19 06:56] LABS: Bun/Creatinine Ratio 21.2 (12.0-20.0); Calcium, Blood 9.2 mg/dL (8.5-10.1); Creatinine, Blood 0.85 mg/dL (0.60-1.20); Potassium, Blood 4.2 mmol/L (3.5-5.5)
[2023-05-19 07:22] VITALS: BP 148/87
[2023-05-19 09:34] LABS: Source, Urine Clean Catch
[2023-05-19 09:38] LABS: Appearance, Urine Clear (Clear); Bilirubin, Urine Neg (Neg); Blood, Urine Neg (Neg); Color, Urine Yellow (P-Yellow); Glucose Qualitative, Urine Neg (Neg); Ketones, Urine Neg (Neg); Leukocyte Esterase, Urine Neg (Neg); Nitrite, Urine Neg (Neg); Protein, Urine 1+ (Neg); Urobilinogen, Urine NORM (Normal); pH, Urine 6.5 (5.0-8.0)
[2023-05-19] MEDS ORDERED: AMOCLA875 PO (16:25)
[2023-05-19] MEDS ORDERED: GUAI600T33 PO (16:26)
[2023-05-19] MEDS ORDERED: PRED20 PO (16:26)
--- NOTE | 2023-05-19 18:03 | NUR ---
SHIFT SUMMARY PATIENT IS ALERT AND ORIENTED. PATIENT HAS HAD NO ACUTE EVENTS THIS SHIFT. PATIENT HAS NOT COMPLAINED OF PAIN, SOB, NAUSEA, OR VOMITTING THIS SHIFT. PATIENT IS BEING DISCHARGED HOME WITH TRANSPORTING AFTER HOME O2 EVAL.
== END 2023-05-19 17:27 | disposition home or self-care (01) | DRG 871 ==
LOC: ER 19:31 → MEDS 21:34
PROVIDERS: Emergency Medicine; Family Medicine; Internal Medicine; ADMIT Student in an Organized Health Care Education/Training Program
DX: A41.9 Sepsis, unspecified organism (principal); J18.9 Pneumonia, unspecified organism; J96.21 Acute and chronic respiratory failure with hypoxia; J44.1 Chronic obstructive pulmonary disease with (acute) exacerbation; I48.20 Chronic atrial fibrillation, unspecified; J44.0 Chronic obstructive pulmonary disease with (acute) lower respiratory infection; E11.9 Type 2 diabetes mellitus without complications; I10 Essential (primary) hypertension; G47.33 Obstructive sleep apnea (adult) (pediatric); F17.210 Nicotine dependence, cigarettes, uncomplicated; Z86.718 Personal history of other venous thrombosis and embolism; Z95.0 Presence of cardiac pacemaker; Z96.652 Presence of left artificial knee joint; Z99.81 Dependence on supplemental oxygen; Z99.89 Dependence on other enabling machines and devices; Z98.890 Other specified postprocedural states; Z79.84 Long term (current) use of oral hypoglycemic drugs; Z79.01 Long term (current) use of anticoagulants; Z79.899 Other long term (current) drug therapy
CPT/HCPCS: 36415; 71045; 80048; 80053; 80069; 82947; 83605; 85025; 87070; 87205; 87449; 93005; 93010; 94640; 94660; 94664; 94760; 94761; 94762; 96361; 96374; 99285-25; A9270; J0456; J0696; J7050; J7120; J7512

== ENCOUNTER 2023-12-17 10:01 | Emergency (ER) | payer OTHER ==
[~2023-12-17] VITALS: Ht 177.8 cm; Wt 97.5 kg
[~2023-12-17 10:01] MED LIST changes: +AMOCLA875 PO
[2023-12-17 11:48] LABS: BASOPHILS ABSOLUTE AUTO 0.03 K/mm3 (0.00-0.23); BASOPHILS PERCENT AUTO 1 % (0-2); EOSINOPHILS ABSOLUTE AUTO 0.19 K/mm3 (0.00-0.68); EOSINOPHILS PERCENT AUTO 4 % (0-6); Hematocrit 41.4 % (37.0-53.0); Hemoglobin 13.4 g/dL (13.5-17.5); IMMATURE GRAN ABSOLUTE AUTO 0.02 K/mm3 (0.00-0.10); IMMATURE GRAN PERCENT AUTO 0 % (0-1); LYMPHOCYTES ABSOLUTE AUTO 0.83 K/mm3 (0.84-5.20); LYMPHOCYTES PERCENT AUTO 15 % (21-46); MONOCYTES ABSOLUTE AUTO 0.53 K/mm3 (0.16-1.47); MONOCYTES PERCENT AUTO 10 % (4-13); Mean Corpuscular HGB 31.5 pg (26.0-34.0); Mean Corpuscular HGB Conc 32.4 g/dL (31.5-36.5); Mean Corpuscular Volume 97 fL (80-100); Mean Platelet Volume 11.3 fL (9.1-12.4); NEUTROPHILS ABSOLUTE AUTO 3.83 K/mm3 (1.96-9.15); NEUTROPHILS PERCENT AUTO 70 % (41-73); Platelet Count 156 K/mm3 (150-400); RDW Coefficient Variation 15.6 % (11.7-14.2); RDW Standard Deviation 55.9 fL (35.1-46.3); Red Blood Cell Count 4.25 M/mm3 (4.30-5.90); White Blood Cell Count 5.43 K/mm3 (4.00-11.30)
[2023-12-17 12:12] LABS: Source, Urine Clean Catch
[2023-12-17 12:15] LABS: Appearance, Urine Hazy (Clear); Bilirubin, Urine Neg (Neg); Blood, Urine 5+ (Neg); Color, Urine Yellow (P-Yellow); Glucose Qualitative, Urine Neg (Neg); Ketones, Urine Neg (Neg); Leukocyte Esterase, Urine Neg (Neg); Nitrite, Urine Neg (Neg); Protein, Urine 2+ (Neg); Urobilinogen, Urine NORM (Normal); pH, Urine 6.5 (5.0-8.0)
[2023-12-17 12:17] LABS: Albumin, Blood 3.7 g/dL (3.4-5.0); Bilirubin, Total 0.3 mg/dL (0.1-1.0); Bun/Creatinine Ratio 29.2 (12.0-20.0); Calcium, Blood 9.7 mg/dL (8.5-10.1); Creatinine, Blood 0.82 mg/dL (0.60-1.20); Globulin, Blood 3.6 g/dL (2.2-4.0); Potassium, Blood 4.4 mmol/L (3.5-5.5); Total Protein, Blood 7.3 g/dL (6.4-8.2)
[2023-12-17 12:22] LABS: Bacteria Rare /hpf; Red Blood Cells, Urine TNTC /hpf (0-2); Squamous Epithelial Cells Rare /hpf (Few); White Blood Cells, Urine 0-2 /hpf (0-5)
[2023-12-17] MEDS ORDERED: FLUT1DIS5 INH (12:33)
[2023-12-17] MEDS ORDERED: TIOT18 INH (12:37)
[2023-12-17] MEDS ORDERED: TRAM50 PO (12:37)
[2023-12-17 13:27] LABS: Influenza A, PCR NEGATIVE (NEGATIVE); Influenza B, PCR NEGATIVE (NEGATIVE); Resp Syncytial Virus, PCR NEGATIVE (NEGATIVE); SARS-Cov-2 (COVID-19) PCR, MMC NEGATIVE (NEGATIVE)
[2023-12-17] MEDS ORDERED: CEPH500 PO (14:08)
[2023-12-17 14:56] VITALS: BP 130/71
== END 2023-12-17 14:59 | disposition home or self-care (01) ==
LOC: ER 10:01
PROVIDERS: Emergency Medicine
DX: N30.91 Cystitis, unspecified with hematuria (principal); Z87.891 Personal history of nicotine dependence
CPT/HCPCS: 0241U; 71045; 80053; 81001; 84484; 85025; 93005; 93010; 96365; 99284-25; J0696

== ENCOUNTER 2023-12-29 17:26 | Emergency (ER) | payer OTHER ==
[~2023-12-29] VITALS: Ht 177.8 cm; Wt 102.1 kg
[~2023-12-29 17:26] MED LIST changes: +CEPH500 PO; +TIOT18 INH; +TRAM50 PO
[2023-12-29 18:34] LABS: Influenza A, PCR NEGATIVE (NEGATIVE); Influenza B, PCR NEGATIVE (NEGATIVE); Resp Syncytial Virus, PCR NEGATIVE (NEGATIVE); SARS-Cov-2 (COVID-19) PCR, MMC NEGATIVE (NEGATIVE)
[2023-12-29 18:38] LABS: BASOPHILS ABSOLUTE AUTO 0.03 K/mm3 (0.00-0.23); BASOPHILS PERCENT AUTO 0 % (0-2); EOSINOPHILS ABSOLUTE AUTO 0.28 K/mm3 (0.00-0.68); EOSINOPHILS PERCENT AUTO 3 % (0-6); Hematocrit 39.7 % (37.0-53.0); Hemoglobin 12.6 g/dL (13.5-17.5); IMMATURE GRAN ABSOLUTE AUTO 0.02 K/mm3 (0.00-0.10); IMMATURE GRAN PERCENT AUTO 0 % (0-1); LYMPHOCYTES ABSOLUTE AUTO 0.62 K/mm3 (0.84-5.20); LYMPHOCYTES PERCENT AUTO 8 % (21-46); MONOCYTES ABSOLUTE AUTO 0.85 K/mm3 (0.16-1.47); MONOCYTES PERCENT AUTO 10 % (4-13); Mean Corpuscular HGB 31.3 pg (26.0-34.0); Mean Corpuscular HGB Conc 31.7 g/dL (31.5-36.5); Mean Corpuscular Volume 99 fL (80-100); NEUTROPHILS ABSOLUTE AUTO 6.42 K/mm3 (1.96-9.15); NEUTROPHILS PERCENT AUTO 78 % (41-73); Platelet Count 153 K/mm3 (150-400); RDW Coefficient Variation 15.4 % (11.7-14.2); RDW Standard Deviation 56.2 fL (35.1-46.3); Red Blood Cell Count 4.03 M/mm3 (4.30-5.90); White Blood Cell Count 8.22 K/mm3 (4.00-11.30)
[2023-12-29 19:05] LABS: Albumin, Blood 3.6 g/dL (3.4-5.0); Albumin/Globulin Ratio 1.1 (0.8-1.8); Bilirubin, Total 0.6 mg/dL (0.1-1.0); Bun/Creatinine Ratio 18.4 (12.0-20.0); Calcium, Blood 9.7 mg/dL (8.5-10.1); Creatinine, Blood 0.92 mg/dL (0.60-1.20); Globulin, Blood 3.4 g/dL (2.2-4.0); Potassium, Blood 3.9 mmol/L (3.5-5.5)
[2023-12-30] MEDS ORDERED: DELTASONE20 MG PO (00:26)
[2023-12-30 00:30] VITALS: BP 156/97
[2024-01-04] MEDS ORDERED: AMOCLA875 PO (10:21)
== END 2023-12-30 00:38 | disposition home or self-care (01) ==
LOC: ER 17:26
PROVIDERS: Physician Assistant
DX: J44.1 Chronic obstructive pulmonary disease with (acute) exacerbation (principal); I10 Essential (primary) hypertension; G47.33 Obstructive sleep apnea (adult) (pediatric); I48.91 Unspecified atrial fibrillation; K21.9 Gastro-esophageal reflux disease without esophagitis; Z79.899 Other long term (current) drug therapy; Z79.01 Long term (current) use of anticoagulants; Z79.84 Long term (current) use of oral hypoglycemic drugs; E11.9 Type 2 diabetes mellitus without complications; Z20.822 Contact with and (suspected) exposure to COVID-19; Z99.81 Dependence on supplemental oxygen
CPT/HCPCS: 0241U; 71046; 80053; 83880; 84145; 84484; 85025; 87070; 87077; 87185; 87205; 93005; 93010; 94640; 94644; 94664; 96374; 99285-25; J2930

== ENCOUNTER 2024-04-04 09:10 | Inpatient (IN) | payer OTHER ==
[2024-04-04] VITALS (28 sets, daily range): BP systolic 96–117; BP diastolic 51–87
[~2024-04-04] VITALS: Ht 170.2 cm; Wt 94.0 kg
[~2024-04-04 09:10] MED LIST changes: +ALBU90OI INH
[2024-04-04] MEDS ORDERED: Chlorhexidine Mouth Care 15 ML UDC MT SCH (10:00)
[2024-04-04] MEDS ORDERED: Vancomycin HCL 1,000 MG in NS 100 ML IV SCH (10:00)
[2024-04-04] MEDS ORDERED: Lactated Ringer's 1,000 ML IV SCH ×2 (10:00→12:55)
[2024-04-04] MEDS ORDERED: CeFAZolin Sodium 2,000 MG in NS 100 ML IV SCH ×2 (10:00→21:00)
[2024-04-04] MEDS ORDERED: OxyCODONE HCL 10 MG TABCR PO SCH (10:00)
[2024-04-04] MEDS ORDERED: Acetaminophen 500 MG Tab PO SCH ×2 (10:00→16:00)
[2024-04-04] MEDS ORDERED: Ropivacaine 0.5% HCl/Pf 123.125 MG,EPINEPHrine HCL 0.25 MG,Ketorolac Tromethamine 15 MG... INFIL SCH (10:00)
[2024-04-04] MEDS ORDERED: Tranexamic Acid 100 ML IV SCH (10:25)
[2024-04-04] MEDS ORDERED: CeFAZolin Sodium 2,000 MG VIAL ONE (11:09)
[2024-04-04] MEDS ORDERED: MUPIROCIN1 G1 TOP (11:14)
[2024-04-04] MEDS ORDERED: Lidocaine HCl 2% 20 ML MDV ONE (11:16)
[2024-04-04] MEDS ORDERED: propofoL 40 ML IV ONE (11:16)
[2024-04-04] MEDS ORDERED: FentaNYL Citrate 50 MCG/ML 2 ML Injection ONE (11:16)
--- NOTE | 2024-04-04 12:14 | NUR ---
DENTURES TAKING TO PACU FOR SAFE KEEPING DURING SURGERY.
[2024-04-04] MEDS ORDERED: Lidocaine HCl 2% 10 ML SDA ONE (12:30)
--- NOTE | 2024-04-04 12:30 | NUR ---
HEARING AIDS BILAT LEFT IN PER DR NUNES.
[2024-04-04] MEDS ORDERED: OxyCODONE HCL 5 MG TAB PO PRN ×2 (12:50→13:10)
[2024-04-04] MEDS ORDERED: Albuterol 2.5 MG/3 ML VIAL INH PRN (12:50)
[2024-04-04] MEDS ORDERED: DiphenhydrAMINE HCL 25 MG Cap PO PRN (12:55)
[2024-04-04] MEDS ORDERED: Ondansetron HCl 2 MG / ML 2ML Vial IV PRN ×2 (12:55→13:35)
[2024-04-04] MEDS ORDERED: Magnesium Hydroxide Conc 10 ML UDC PO PRN (12:55)
[2024-04-04] MEDS ORDERED: Metoclopramide HCl 5MG / ML 2ML Vial IV PRN (12:55)
[2024-04-04] MEDS ORDERED: Phenylephrine HCl 100 MCG/ML-NS 10MLSYR (1MG/10ML) ONE ×2 (12:56→13:32)
[2024-04-04] MEDS ORDERED: Tiotropium Bromide 2.5 MCG/ACT MIST INHAL (10 ACT/4 GM) INH SCH (13:00)
[2024-04-04] MEDS ORDERED: Albuterol HFA200 ACT/6.7 GM INH INH PRN (13:00)
[2024-04-04] MEDS ORDERED: Mometasone/Formoterol MDI 200/5 mcg 13 GM INH SCH (13:00)
[2024-04-04] MEDS ORDERED: Bisacodyl 10 MG Supp PR PRN (13:05)
[2024-04-04] MEDS ORDERED: HYDROmorphone HCl/Pf 1MG SYR IV PRN (13:05)
[2024-04-04] MEDS ORDERED: Promethazine HCl 25 MG Tab PO PRN (13:10)
--- NOTE | 2024-04-04 13:26 | NUR ---
04/04/24 1326 Rosita Mehta EPIDURAL PLACED BY UPON ENTRY TO OR. SECURED WITH TAPE. PATIENT TOLERATED WELL.
[2024-04-04] MEDS ORDERED: ePHEDrine Sulfate 50 MG/ML 1ML Injection IV SCH (13:35)
[2024-04-04] MEDS ORDERED: Naloxone HCl 0.4MG / ML 1ML Vial IV PRN (13:35)
[2024-04-04] MEDS ORDERED: Phenylephrine HCl 10mg/ml 1 ml Vial ONE (13:49)
[2024-04-04] MEDS ORDERED: SODIUM CHLORIDE EPI PRN ×2 (13:50→14:00)
[2024-04-04] MEDS ORDERED: BUPIVACAINE EPI PRN ×2 (13:50→14:00)
[2024-04-04] MEDS ORDERED: FENTANYL EPI PRN ×2 (13:50→14:00)
[2024-04-04] MEDS ORDERED: Mupirocin 2% Ointment 22 GM TOP SCH (14:00)
[2024-04-04] MEDS ORDERED: Gabapentin 100 MG Cap PO SCH (14:00)
[2024-04-04] MEDS ORDERED: propofoL 20 ML IV ONE (14:11)
--- NOTE | 2024-04-04 15:30 | NUR ---
PT ARRIVED TO THE ROOM FROM PACU AT APPROXIMATELY 1530. PT ALERT AND ORIENTED UPON ARRIVAL. PT EDUCATED TO USE CALL LIGHT. EPIDURAL IN PLACE, APPEARS TO BE FUNCTIONING PROPERLY. PT REPORTS HX OF NEUROPATHY AND DECREASED SENSATION TO BILATERAL FEET AT BASELINE. PT IS ABLE TO MOVE BLE. PT IS ABLE TO PLANTAR AND DORSIFLEX, STRENGTH EQUAL BILATERALLY. PT REPORTS FULL SENSATION ABOVE FEET.
--- NOTE | 2024-04-04 16:00 | NUR ---
DERMATOMES PT HAS FULL SENSATION AND MOVEMENT TO BLE. HE IS ABLE TO PLANTAR AND DORSIFLEX, STRENGHT EQUAL BILATERALLY. PT REPORTS HX OF NEUROPATHY TO HIS FEET, UNABLE TO DETERMIN IF DECREASED SENSATION TO FEET IS BASELINE OR R/T EPIDURAL. PT STATES HE BELIEVES HIS SENSATION FEELS NORMAL TO HIM AT THIS TIME. CAP REFIL WNL.
[2024-04-04] MEDS ORDERED: MetFORMIN HCl 500 mg PO SCH (17:00)
--- NOTE | 2024-04-04 17:00 | NUR ---
DERMATOMES UNCHANGED FROM PREVIOUS ASSESSMENT.
[2024-04-04] MEDS ORDERED: Ketorolac Tromethamine 15mg Vial IV SCH (18:00)
--- NOTE | 2024-04-04 19:00 | NUR ---
DERMATOMES/EPIDURAL ASSESSMENT DURING SHIFT CHANGE EPIDURAL ASSESSMENT WAS COMPLETED. PT FOUND TO HAVE MILD CHANGE IN DERMATOME LEVEL FROM L5 BILATERALLY TO L5/L4 ON THE RIGHT AND L3 ON THE LEFT. EPIDURAL SITE HAS HAD SCANT BLOOD, APPROXIMATELY THE SIZE OF A QUATER ON PT'S BEDDING. AT APPROXIMATELY 1830 PT'S EPIDURAL ALARMED INDICATING A DISTAL OCCLUSION, EPIDURAL TUBING EXAMINED AND FOUND TO BE LIGHTLY CLAMPED. PRIOR TO ALARM EPIDURAL HAD APPEARED TO BE FUNCTIONING PROPERLY, PT HAS HAD ADEQUATE PAIN CONTROL POST-OP. NOC LEAH CUBA PRESENT DURING ASSESSMENT AND NOTIFIED OF CHANGES, SHE VERBALIZED THAT SHE WOULD REASSESS PT AT NEXT CHECK (1999) AND NOTIFY DR. NUNES IF CHANGES PERSISTED OR WORSENED. PT'S STRENGTH REMAINS EQUAL TO BLE.
--- NOTE | 2024-04-04 20:15 | NUR ---
SHIFT SUMMARY PT IS POD#0 FROM L TKA WITH DR. DALTON. PAIN MANAGED WITH EPIDURAL (SEE EPIDURAL NOTES). PT TOLERATING PO. RAMIREZ CATH IN PLACE AND DRAINING. BEDSIDE REPORT GIVEN TO ROSA ELENA LYNN.
[2024-04-04] MEDS ORDERED: Metoprolol Succinate 25 MG TABCR PO SCH (21:00)
[2024-04-04] MEDS ORDERED: Losartan Potassium 50 MG Tab PO SCH (21:00)
[2024-04-04] MEDS ORDERED: Docusate Sodium 100 MG Cap PO SCH (21:00)
[2024-04-05] VITALS (15 sets, daily range): BP systolic 104–141; BP diastolic 60–77
--- NOTE | 2024-04-05 02:15 | NUR ---
EPIDURAL SMALL SEROSANGUINOUS DRAINAGE NOTED AT START OF SHIFT APPROX 3 INCHES ABOVE EPIDURAL INSERTION SITE. AT THIS TIME, EPIDURAL ASSESSED AND 2 ADDITIONAL SMALL SPOTS NOTED FROM SAME SPOT. INSERTION SITE REMAINS CDI. PT DENIES ANY SENSATION CHANGES OR INCREASED PAIN. VITAL SIGNS REMAIN STABLE. TOBACCO BALER NOTIFIED AND ASSESSED SITE WITH THIS RN. WILL CONT TO MONITOR.
[2024-04-05 04:42] LABS: BASOPHILS ABSOLUTE AUTO 0.03 K/mm3 (0.00-0.23); BASOPHILS PERCENT AUTO 0 % (0-2); EOSINOPHILS ABSOLUTE AUTO 0.16 K/mm3 (0.00-0.68); EOSINOPHILS PERCENT AUTO 2 % (0-6); Hematocrit 35.8 % (37.0-53.0); Hemoglobin 11.5 g/dL (13.5-17.5); IMMATURE GRAN ABSOLUTE AUTO 0.02 K/mm3 (0.00-0.10); IMMATURE GRAN PERCENT AUTO 0 % (0-1); LYMPHOCYTES ABSOLUTE AUTO 0.78 K/mm3 (0.84-5.20); LYMPHOCYTES PERCENT AUTO 12 % (21-46); MONOCYTES ABSOLUTE AUTO 0.81 K/mm3 (0.16-1.47); MONOCYTES PERCENT AUTO 12 % (4-13); Mean Corpuscular HGB 30.7 pg (26.0-34.0); Mean Corpuscular HGB Conc 32.1 g/dL (31.5-36.5); Mean Corpuscular Volume 96 fL (80-100); Mean Platelet Volume 10.9 fL (9.1-12.4); NEUTROPHILS ABSOLUTE AUTO 4.88 K/mm3 (1.96-9.15); NEUTROPHILS PERCENT AUTO 73 % (41-73); Platelet Count 160 K/mm3 (150-400); RDW Coefficient Variation 14.9 % (11.7-14.2); RDW Standard Deviation 52.1 fL (35.1-46.3); Red Blood Cell Count 3.75 M/mm3 (4.30-5.90); White Blood Cell Count 6.68 K/mm3 (4.00-11.30)
--- NOTE | 2024-04-05 04:44 | NUR ---
SHIFT SUMMARY S/P L TKA. AQUACEL DRESSING REMAINS CDI WITH POLAR PACK IN PLACE. DENIES PAIN. DERMATOMES HAVE REMAIN UNCHANGED THIS SHIFT. SEE EPIDURAL ASSESSMENTS. APPROX 3 INCHES ABOVE EPIDURAL SITE, SMALL SEROSANG DRAINAGE FROM OLD SPINAL SITE. PT VSS AND SENSATION HAS NOT CHANGED ALL NOC. CONT TO MONITOR. CPAP IN PLACE WHILE SLEEPING. RAMIREZ CATH PATENT WITH DARK ORANGE/BROWN COLORED URINE. PT USES CALL LIGHT APPROPRIATELY. BED ALARM IN PLACE FOR SAFETY. NO CONFUSION OR DISORIENTATION NOTED THIS NOC. CALL LIGHT WITHIN REACH.
[2024-04-05 04:59] LABS: Bun/Creatinine Ratio 28.4 (12.0-20.0); Calcium, Blood 8.8 mg/dL (8.5-10.1); Creatinine, Blood 1.16 mg/dL (0.60-1.20); Magnesium, Blood 1.6 mg/dL (1.6-2.4); Potassium, Blood 3.9 mmol/L (3.5-5.5)
--- NOTE | 2024-04-05 06:21 | NUR ---
EPIDURAL STOPPED AT [address] NUNES T.O. NOTIFED ABOUT SS DRAINAGE ABOVE INSERTION SITE. PLAN FOR DR. NUNES TO DC EPIDURAL THIS MORNING.
--- NOTE | 2024-04-05 06:41 | NUR ---
EPIDURAL DC'D BY DR. NUNES AT APPROX 0672. EPIDURAL TIP INTACT WITH BLUE TIP. BANDAID PLACED.
[2024-04-05] MEDS ORDERED: OXAYDO5 M1 PO (08:00)
[2024-04-05] MEDS ORDERED: ACET500 PO (08:00)
[2024-04-05] MEDS ORDERED: Fenofibrate 67 MG Cap PO SCH (09:00)
[2024-04-05] MEDS ORDERED: Tamsulosin HCl 0.4 MG Cap PO SCH (09:00)
[2024-04-05] MEDS ORDERED: DULoxetine HCL 60 MG Capsule DR PO SCH (09:00)
[2024-04-05] MEDS ORDERED: Furosemide 40 MG Tab PO SCH (09:00)
[2024-04-05] MEDS ORDERED: AmLODIPine Besylate 5 MG Tab PO SCH (09:00)
--- NOTE | 2024-04-05 13:56 | NUR ---
Pt. is awake and sitting in a recliner when he welcomes my visit. Pt. is pleasant. Facilitate a life review and int the process establish rapport. Pt. verbalized s couple traumatic losses in his life. Pastoral and grief support is given. Pt. displayed evidenc of engagement and trust. Pts. nurse arrived to assess Pts. recovery. Pt. verbalized gratitude for the spiritual care visit.
[2024-04-05] MEDS ORDERED: Lidocaine 2% Jelly Uro-Jet UR ONE (18:00)
--- NOTE | 2024-04-05 19:35 | NUR ---
SHIFT SUMMARY PT IS POD#1 FROM L TKA WITH DR. DALTON. PT CLEARED THERAPY. PAIN MANAGED WITH TYLENOL AND TORADOL, OXY X1 BEFORE PHYSICAL THERAPY. PT TOLERATING PO. PT REMAINS IN THE HOSPITAL R/T URINARY RETENTION. PT WAS ABLE TO VOID BUT CONTINUES TO RETAIN GREATER THAN 400ML. PT ATTEMPTED TO VOID MULTIPLE TIMES BEFORE RAMIREZ CATH WAS PLACED. PT HAS HX OF DIFFICULT CATHETER PLACEMENTS SO DR. DALTON REQUESTED RAMIREZ BE PLACED INSTEAD OF STRAIGHT CATH. PT TOLERATED PLACEMENT WELL. BEDSIDE REPORT GIVEN TO ZACHARY LYNN.
[2024-04-05 20:12] LABS: Source, Urine Foley catheter
[2024-04-05 20:26] LABS: Appearance, Urine Clear (Clear); Bilirubin, Urine Neg (Neg); Blood, Urine 4+ (Neg); Color, Urine Yellow (P-Yellow); Glucose Qualitative, Urine Neg (Neg); Ketones, Urine Neg (Neg); Leukocyte Esterase, Urine Neg (Neg); Nitrite, Urine Neg (Neg); Protein, Urine Neg (Neg); Urobilinogen, Urine NORM (Normal)
[2024-04-05 21:32] LABS: Bacteria Not Seen /hpf; Squamous Epithelial Cells Not Seen /hpf (Few); White Blood Cells, Urine 0-2 /hpf (0-5)
[2024-04-06 02:42] VITALS: BP 117/67
--- NOTE | 2024-04-06 04:23 | NUR ---
SHIFT SUMMARY POD2 L TKA. AQUACEL DRESSING IS C/D/I. VSS. PT SLEPT ON AND OFF T/O THE NIGHT. MEDICATED FOR PAIN WITH PRN'S AND SCHEDULED W/ TOLLERABLE RESULTS. RAMIREZ REMAINS IN PLACE, GOOD URINE OUTPUT. PT TOLLERATING PO INTAKE W/O N/V. NO ACUTE EVENTS NOTED. PLAN FOR DISCUSSION TODAY ABOUT D/C'ING HOME W/RAMIREZ OR WITHOUT.
[2024-04-06 07:29] VITALS: BP 133/60
--- NOTE | 2024-04-06 09:43 | NUR ---
DISCHARGE NOTE: PATIENT AND WERE EDUCATED ON DISCHARGE INSTRUCTIONS WITH IN DETAIL INDWELLING CATHETER HOME INSTRUCTIONS WERE ALSO GIVEN. BOTH VERBALIZED UNDERSTANDING OF INSTRUCTIONS AND HAD NO FURTHER QUESTIONS AT THIS TIME. IV WAS TAKEN OUT AND WNL. PATIENT WAS GIVEN X2 EXTRA AQUACEL DRESSINGS, A GAIT BELT, X3 RAMIREZ CATHETER LOCK STICKER, NEW URNAL, AND ROSE CATH WIPES FOR THE RAMIREZ. PAIN IS MANAGED WITH PO PAIN MEDS. HIS LEFT KNEE HAS AN AQUACEL DRESSING WITH SCANT AMOUNT OF DRAINAGE BUT IS INTACT. HE DENIES NUMBNESS OR TINGLING THROUGHOUT ALL EXTREMITIES. HE IS A SBA WITH FWW AND GAIT BELT. PATIENT IS TOLERATING PO INTAKE. RAMIREZ IS DRAINING PER GRAVITY WITH DARK YELLOW URINE OUTPUT WITH NO KINKS IN TUBING. PATIENT IS DRESSED AND HAS ALL PERSONAL ITEMS IN THE ROOM GATHERED. HE WAS WHEELCHAIRED OUT TO HIS WIFES CAR TO BE TAKEN HOME. PATIENTS ALREADY SCHEDULED AN APPOINTMENT WITH DR. WICK HIS PCP FOR TOMORROW MORNING.
== END 2024-04-06 09:50 | disposition home or self-care (01) | DRG 470 ==
LOC: ORSCMMR 09:10 → SURS 15:29 → ORSCMMR 16:45 → SURS 21:01 → ORSCMMR 04-05 07:42 → SURS 04-05 07:42
PROVIDERS: ADMIT Orthopaedic Surgery
PROC: 8E0Y0CZ Robotic Assisted Procedure of Lower Extremity, Open Approach (ICD-10-PCS; 2024-04-04)
PROC: 0SRD0JA Replacement of Left Knee Joint with Synthetic Substitute, Uncemented, Open Approach (ICD-10-PCS; principal; 2024-04-04 13:30)
DX: M17.12 Unilateral primary osteoarthritis, left knee (principal); I50.32 Chronic diastolic (congestive) heart failure; I25.10 Atherosclerotic heart disease of native coronary artery without angina pectoris; G47.33 Obstructive sleep apnea (adult) (pediatric); I48.0 Paroxysmal atrial fibrillation; J44.9 Chronic obstructive pulmonary disease, unspecified; I11.0 Hypertensive heart disease with heart failure; E11.9 Type 2 diabetes mellitus without complications; E66.01 Morbid (severe) obesity due to excess calories; I95.1 Orthostatic hypotension; E78.5 Hyperlipidemia, unspecified; Z99.81 Dependence on supplemental oxygen; Z68.32 Body mass index [BMI] 32.0-32.9, adult; Z79.01 Long term (current) use of anticoagulants; Z79.899 Other long term (current) drug therapy; Z98.890 Other specified postprocedural states; Z79.84 Long term (current) use of oral hypoglycemic drugs
CPT/HCPCS: 36415; 73560-LT; 80048; 81001; 82947; 83735; 85025; 94640; 94660; 94664; 94760; 94762; 97110; 97116; 97162; A9270; C1713; C1776; J0171; J0690; J0735; J1170; J1885; J2001; J2371; J2704; J2795; J3010; J3370; J7050; J7120

== ENCOUNTER 2024-04-07 17:24 | Emergency (ER) | payer OTHER ==
[~2024-04-07] VITALS: Ht 175.3 cm; Wt 93.4 kg
[2024-04-07 19:45] VITALS: BP 121/56
== END 2024-04-07 20:15 | disposition home or self-care (01) ==
LOC: ER 17:24
DX: S09.90XA Unspecified injury of head, initial encounter (principal); W01.10XA Fall on same level from slipping, tripping and stumbling with subsequent striking against unspecified object, initial encounter; Z79.899 Other long term (current) drug therapy; Z79.84 Long term (current) use of oral hypoglycemic drugs; E11.9 Type 2 diabetes mellitus without complications; J44.9 Chronic obstructive pulmonary disease, unspecified; I10 Essential (primary) hypertension; I48.91 Unspecified atrial fibrillation

== ENCOUNTER 2024-08-12 12:48 | Inpatient (IN) | payer OTHER ==
[~2024-08-12] VITALS: Ht 175.3 cm; Wt 64.3 kg
[~2024-08-12 12:48] MED LIST changes: +ACET500 PO; +CEFTRIAXON1 GM/50 M1 IV; +DOCU100 PO; +FERSU300 PO; +HUMALOG KW100 UNIT/1 SC; +Lovenox40 MG/0.4 SC; +MAGNESIUM OXID500 MG PO; +METFORMIN HCL500 M3 PO; +MUPIROCIN1 G1 TOP; +NEURONTIN300 MG PO; +OXAYDO5 M1 PO; +Percocet 5-3251 EACH PO; +QUET25 PO; +SENN187 PO; +SPIRIVA RESPIMAT4 G3 INH; -TIOT18 INH; +VANCOMYCIN HCL1 G1 IV; +VISBIOME 112.51 EACH PO
[2024-08-12 15:13] LABS: BASOPHILS ABSOLUTE AUTO 0.02 K/mm3 (0.00-0.23); BASOPHILS PERCENT AUTO 1 % (0-2); EOSINOPHILS ABSOLUTE AUTO 0.11 K/mm3 (0.00-0.68); EOSINOPHILS PERCENT AUTO 4 % (0-6); Hematocrit 35.3 % (37.0-53.0); Hemoglobin 11.2 g/dL (13.5-17.5); IMMATURE GRAN ABSOLUTE AUTO 0.01 K/mm3 (0.00-0.10); IMMATURE GRAN PERCENT AUTO 0 % (0-1); LYMPHOCYTES ABSOLUTE AUTO 0.54 K/mm3 (0.84-5.20); LYMPHOCYTES PERCENT AUTO 17 % (21-46); MONOCYTES ABSOLUTE AUTO 0.46 K/mm3 (0.16-1.47); MONOCYTES PERCENT AUTO 15 % (4-13); Mean Corpuscular HGB 30.8 pg (26.0-34.0); Mean Corpuscular HGB Conc 31.7 g/dL (31.5-36.5); Mean Corpuscular Volume 97 fL (80-100); NEUTROPHILS ABSOLUTE AUTO 1.98 K/mm3 (1.96-9.15); NEUTROPHILS PERCENT AUTO 64 % (41-73); Platelet Count 131 K/mm3 (150-400); RDW Coefficient Variation 16.3 % (11.7-14.2); RDW Standard Deviation 58.4 fL (35.1-46.3); Red Blood Cell Count 3.64 M/mm3 (4.30-5.90); White Blood Cell Count 3.12 K/mm3 (4.00-11.30)
[2024-08-12 15:36] LABS: Albumin, Blood 3.5 g/dL (3.4-5.0); Albumin/Globulin Ratio 1.1 (0.8-1.8); Bilirubin, Total 1.1 mg/dL (0.1-1.0); Calcium, Blood 9.2 mg/dL (8.5-10.1); Creatinine, Blood 0.81 mg/dL (0.60-1.20); Globulin, Blood 3.1 g/dL (2.2-4.0); Potassium, Blood 3.9 mmol/L (3.5-5.5); Total Protein, Blood 6.6 g/dL (6.4-8.2)
[2024-08-12] MEDS ORDERED: FUROSEMIDE40 MG PO (16:26)
[2024-08-12] MEDS ORDERED: LOSA50 PO (16:26)
[2024-08-12] MEDS ORDERED: XARELTO20 M1 PO (16:26)
[2024-08-12] MEDS ORDERED: Furosemide 10 MG/ML 4ML Vial IV ONE (17:15)
[2024-08-12] MEDS ORDERED: Ipratropium/Albuterol SulF 2.5-0.5MG/3 ML Amp INH ONE (17:15)
[2024-08-12] MEDS ORDERED: MethylPREDNISolone Sod Succ 125 MG Vial IV ONE (17:15)
[2024-08-12 19:27] LABS: Influenza A, PCR NEGATIVE (NEGATIVE); Influenza B, PCR NEGATIVE (NEGATIVE); Resp Syncytial Virus, PCR NEGATIVE (NEGATIVE); SARS-Cov-2 (COVID-19) PCR, MMC NEGATIVE (NEGATIVE)
[2024-08-12] MEDS ORDERED: Ondansetron HCl 2 MG / ML 2ML Vial IV PRN (19:40)
[2024-08-12] MEDS ORDERED: Enoxaparin 40 MG/0.4 ML SYR SC SCH (20:00)
--- NOTE | 2024-08-12 20:25 | NUR ---
RECEIVED REPORT FROM JHOAN, ER NURSE.
[2024-08-12] MEDS ORDERED: HydrALAZINE HCl 20 MG / ML 1ML Vial IV PRN (20:30)
--- NOTE | 2024-08-12 20:40 | NUR ---
PT ARRIVED TO 330 VIA GURNEY. PT TRANSFERRED TO BED. CURRENTLY ON 3L VIA CT, PT'S HOME DOSE. A/O X 4. OBSERVED PT VERY SOB WITH ACTIVITY AND DURING CONVERSATION. PT ORIENTED TO AND CALL LT. ENCOURAGED PT TO USE CALL LT FOR NEEDS. CALL LT IN REACH. BED ALARM ON FOR SAFETY.
[2024-08-12 20:56] VITALS: BP 153/98
[2024-08-12] MEDS ORDERED: Tiotropium Bromide 2.5 MCG/ACT MIST INHAL (10 ACT/4 GM) INH SCH (23:35)
[2024-08-12] MEDS ORDERED: Acetaminophen 325 MG TABLET PO PRN (23:35)
--- NOTE | 2024-08-13 00:04 | NUR ---
PT ON CPAP NOW. STATES HE'S DOING FINE. CALL LT IN REACH. BED ALARM ON.
[2024-08-13] MEDS ORDERED: Mometasone/Formoterol MDI 200/5 mcg 13 GM INH SCH (00:15)
[2024-08-13] MEDS ORDERED: Albuterol HFA200 ACT/6.7 GM INH INH PRN (00:15)
[2024-08-13 03:30] VITALS: BP 159/87
--- NOTE | 2024-08-13 04:27 | NUR ---
SHIFT SUMMARY: ER ADMIT AT 2039. ALERT AND ORIENTED X 4. WEARS 3L 02 NC WHICH IS HIS HOME DOSE. CPAP AT NIGHT WITH CONT BIOX. BLACKFEET, WEARS HEARING AIDS. USES URINAL AT BEDSIDE D/T SOB WITH AMBULATION. OCCASIONAL COUGHING FITS. BED ALARM ON FOR PT SAFETY D/T PT HAS A HX OF FALLS. WILL CONTINUE TO PROVIDE CARE UNTIL SHIFT REPORT. CALL LT IN REACH.
[2024-08-13 04:51] LABS: BASOPHILS PERCENT AUTO 0 % (0-2); EOSINOPHILS ABSOLUTE AUTO 0.01 K/mm3 (0.00-0.68); EOSINOPHILS PERCENT AUTO 0 % (0-6); Hematocrit 33.1 % (37.0-53.0); Hemoglobin 10.6 g/dL (13.5-17.5); IMMATURE GRAN ABSOLUTE AUTO 0.01 K/mm3 (0.00-0.10); IMMATURE GRAN PERCENT AUTO 0 % (0-1); LYMPHOCYTES ABSOLUTE AUTO 0.29 K/mm3 (0.84-5.20); LYMPHOCYTES PERCENT AUTO 12 % (21-46); MONOCYTES ABSOLUTE AUTO 0.07 K/mm3 (0.16-1.47); MONOCYTES PERCENT AUTO 3 % (4-13); Mean Corpuscular HGB 30.5 pg (26.0-34.0); Mean Corpuscular Volume 95 fL (80-100); Mean Platelet Volume 11.5 fL (9.1-12.4); NEUTROPHILS ABSOLUTE AUTO 2.14 K/mm3 (1.96-9.15); NEUTROPHILS PERCENT AUTO 85 % (41-73); Platelet Count 141 K/mm3 (150-400); RDW Coefficient Variation 16.3 % (11.7-14.2); RDW Standard Deviation 56.9 fL (35.1-46.3); Red Blood Cell Count 3.48 M/mm3 (4.30-5.90); White Blood Cell Count 2.52 K/mm3 (4.00-11.30)
[2024-08-13 05:35] LABS: Albumin, Blood 3.2 g/dL (3.4-5.0); Bilirubin, Total 0.8 mg/dL (0.1-1.0); Bun/Creatinine Ratio 19.2 (12.0-20.0); Calcium, Blood 9.3 mg/dL (8.5-10.1); Creatinine, Blood 0.73 mg/dL (0.60-1.20); Globulin, Blood 3.2 g/dL (2.2-4.0); Total Protein, Blood 6.4 g/dL (6.4-8.2)
[2024-08-13] MEDS ORDERED: Insulin Human Lispro 100 Units/ML 3ML Syringe SC SCH (07:30)
[2024-08-13 07:47] VITALS: BP 165/97
[2024-08-13] MEDS ORDERED: Rivaroxaban 10 MG Tab PO SCH (09:00)
[2024-08-13] MEDS ORDERED: DULoxetine HCL 60 MG Capsule DR PO SCH (09:00)
[2024-08-13] MEDS ORDERED: Metoprolol Succinate 25 MG TABCR PO SCH (09:00)
[2024-08-13] MEDS ORDERED: Tamsulosin HCl 0.4 MG Cap PO SCH (09:00)
[2024-08-13] MEDS ORDERED: Losartan Potassium 50 MG Tab PO SCH (09:00)
[2024-08-13] MEDS ORDERED: Furosemide 10 MG/ML 4ML Vial IV SCH (09:00)
[2024-08-13] MEDS ORDERED: Gabapentin 300 MG Cap PO SCH (09:00)
[2024-08-13] MEDS ORDERED: Fenofibrate 67 MG Cap PO SCH (09:00)
[2024-08-13] MEDS ORDERED: CefTRIAXone Sodium 1,000 MG in NS 100 ML IV SCH (12:10)
[2024-08-13] MEDS ORDERED: Azithromycin 500 MG in NS 250 ML IV SCH (13:00)
[2024-08-13] MEDS ORDERED: MethylPREDNISolone Sod Succ 40 MG VIAL IV SCH (13:00)
[2024-08-13 13:10] VITALS: BP 146/95
[2024-08-13] MEDS ORDERED: NS 250 ML IV PRN (13:25)
--- NOTE | 2024-08-13 14:35 | NUR ---
PT OBSERVED TURNING OFF BED ALARM AFTER HE ACTIVATED IT BY LEANING ON SIDE OF BED. PT WAS EDUCATED NOT TO TURN OFF BED ALARM FOR HIS SAFETY. RE-EDUCATED PT ON FALL PRECAUTIONS.
[2024-08-13 15:17] VITALS: BP 162/82
--- NOTE | 2024-08-13 19:35 | NUR ---
SHIFT SUMMARY: PT IS A/O X 4, SBA WITH WALKER, PLEASANT AND COOPERATIVE. PT DENIES PAIN THROUGHOUT THE DAY. PT ON 3 LPM O2 VIA NC WHICH IS HIS BASELINE. PT URINATING WELL THROUGHOUT THE DAY. EATING AND DRINKING FLUIDS WELL. BLOOD SUGARS WELL CONTROLLED WITH CURRENT INSULIN ORDER.
[2024-08-13 19:41] VITALS: BP 169/73
[2024-08-13] MEDS ORDERED: Lactobacil 2-S.Thermo-Bifido 1 1 Cap PO SCH (21:00)
[2024-08-13] MEDS ORDERED: GuaiFENesin 600 MG TabCR PO SCH (21:00)
--- NOTE | 2024-08-14 01:09 | NUR ---
PT WANTED TO WALK TO THE BATHROOM WITH FWW I GOT HIS FWW READY AND BEGAN TO HELP HIM OUT OF BED AND HE WAS UNSTEADY SO WE WERE ABLE TO TRANSFER TO THE BSC SO HE COULD USE THE BEDROOM. I TOLD THE PT TO CALL WHEN HE NEEDS TO USE THE RESTROOM BUT HE IS FORGETFUL AND UNSTEADY ON FEET SO BED ALARM IS SET. I RECOMMEDED TO USE THE URINAL IN BED AND WE WILL ASSIST HIM TO BSC IF NEEDED.
[2024-08-14 04:54] VITALS: BP 150/88
[2024-08-14 05:48] LABS: BASOPHILS PERCENT AUTO 0 % (0-2); EOSINOPHILS PERCENT AUTO 0 % (0-6); Hemoglobin 10.8 g/dL (13.5-17.5); IMMATURE GRAN ABSOLUTE AUTO 0.02 K/mm3 (0.00-0.10); IMMATURE GRAN PERCENT AUTO 0 % (0-1); LYMPHOCYTES ABSOLUTE AUTO 0.38 K/mm3 (0.84-5.20); LYMPHOCYTES PERCENT AUTO 7 % (21-46); MONOCYTES ABSOLUTE AUTO 0.15 K/mm3 (0.16-1.47); MONOCYTES PERCENT AUTO 3 % (4-13); Mean Corpuscular HGB 30.4 pg (26.0-34.0); Mean Corpuscular HGB Conc 31.8 g/dL (31.5-36.5); Mean Corpuscular Volume 96 fL (80-100); Mean Platelet Volume 11.5 fL (9.1-12.4); NEUTROPHILS ABSOLUTE AUTO 4.71 K/mm3 (1.96-9.15); NEUTROPHILS PERCENT AUTO 90 % (41-73); Platelet Count 141 K/mm3 (150-400); RDW Standard Deviation 56.7 fL (35.1-46.3); Red Blood Cell Count 3.55 M/mm3 (4.30-5.90); White Blood Cell Count 5.26 K/mm3 (4.00-11.30)
--- NOTE | 2024-08-14 06:01 | NUR ---
SHIFT SUMMARY: PT IS A NICE 79 YEAR OLD MAN FULL CODE WHO WAS ADMITTED FOR CHF EXCACERBATION HE IS ON 3L OXYGEN AND DOES HAVE SOME SWOLLEN ANKLES AND WHEEZING LUNG SOUNDS ON EXCERTION. PT ALSO HAS COPD AND USES A CPAP MACHINE AT NIGHT. PT USES A FWW BUT BED ALARM IS SET BECAUSE PT IS FORGETFUL THIS EVENING AND DOES NOT CALL AND IS NOT STEADY ON HIS FEET. PT USES BSC WITH ONE PERSON TO ASSIST. PT HAS CALL LIGHT IN REACH AND HAS BEEN RESTING.
[2024-08-14 06:12] LABS: Albumin, Blood 3.4 g/dL (3.4-5.0); Bilirubin, Total 0.8 mg/dL (0.1-1.0); Bun/Creatinine Ratio 22.7 (12.0-20.0); Calcium, Blood 9.5 mg/dL (8.5-10.1); Creatinine, Blood 0.66 mg/dL (0.60-1.20); Globulin, Blood 3.3 g/dL (2.2-4.0); Magnesium, Blood 1.9 mg/dL (1.6-2.4); Potassium, Blood 4.2 mmol/L (3.5-5.5); Total Protein, Blood 6.7 g/dL (6.4-8.2)
--- NOTE | 2024-08-14 07:11 | NUR ---
HIGH FALL RISK NOTE PT KNOWS HOW TO TURN OFF HIS CALL LIGHT. WE DID AMBULATE HIM AND NOTED THAT HE IS A HIGH FALL RISK AND EXTREMELY UNSTEADY ON HIS FEET.
[2024-08-14 07:30] VITALS: BP 154/70
[2024-08-14 15:30] VITALS: BP 154/69
[2024-08-14] MEDS ORDERED: MethylPREDNISolone Sod Succ 40 MG VIAL IV SCH ×2 (16:00→21:00)
--- NOTE | 2024-08-14 18:21 | NUR ---
SHIFT SUMMARY PT A&0X4. PT ADMITTED DUE TO ACUTE ON CHRONIC DIASTOLIC CHF. LAST BP WAS 154/69. PT IS ON 3L OF O2, SPO2 HAS BEEN 96%. PT REPORTS MINIMAL SOB AND NO CHEST DISCOFORT. PT REPORTS AN IMPROVEMENT OF CONDITION THROUGH SHIFT, AND FEELING LESS DIZZY WITH AMBULATION. PT HAS BEEN STEADY AMBULATING TO [facility]. PT TURNED OFF BED ALARM, PT WAS EDUCATED THE IMPORTANCE OF CALLING DUE TO HIS HX OF FALLS. PT ABLE TO MAKE NEEDS KNOWN, CALL LIGHT IN REACH. PT REPORTS NO PAIN.
[2024-08-14 20:18] VITALS: BP 160/80
[2024-08-14 20:20] VITALS: BP 161/67
--- NOTE | 2024-08-15 06:01 | NUR ---
Patient alert and oriented x4, VSS, resting comfortably in bed overnight, wearing 3L oxygen via nasal cannula at home dosage, tolerating well. Patient continues to refuse bed alarm, deactivating on own, using bedside commode independently.
[2024-08-15 06:29] VITALS: BP 166/83
[2024-08-15 07:57] VITALS: BP 179/80
[2024-08-15] MEDS ORDERED: Furosemide 40 MG Tab PO SCH (09:00)
[2024-08-15 15:25] VITALS: BP 136/79
--- NOTE | 2024-08-15 17:48 | NUR ---
SHIFT SUMMARY; PATIENT REMAINS IN CHAIR MOST OF DAY NEXT TO BED. HE IS ON 4 LITERS O2 VIA NASAL CANNULA AT THIS TIME. NADN. NO ACUTE CHANGES IN CONDITION NOTED DURING DAYSHIFT. HIS LUNGS ARE COARSE AND DIM THROUGHOUT. EXPIRATORY WHEEZES NOTED IN UPPER LOBES. HE IS AO X 4. WILL CONTINUE TO MONITOR THIS PATIENT CLOSELY UNTIL REPORT AND HAND OFF TO NOC SHIFT RN.
[2024-08-15 19:50] VITALS: BP 150/77
[2024-08-16 03:23] VITALS: BP 182/85
[2024-08-16 04:21] VITALS: BP 156/73
[2024-08-16 05:09] LABS: BASOPHILS PERCENT AUTO 0 % (0-2); EOSINOPHILS PERCENT AUTO 0 % (0-6); Hematocrit 35.7 % (37.0-53.0); Hemoglobin 11.4 g/dL (13.5-17.5); IMMATURE GRAN ABSOLUTE AUTO 0.02 K/mm3 (0.00-0.10); IMMATURE GRAN PERCENT AUTO 0 % (0-1); LYMPHOCYTES ABSOLUTE AUTO 0.39 K/mm3 (0.84-5.20); LYMPHOCYTES PERCENT AUTO 8 % (21-46); MONOCYTES ABSOLUTE AUTO 0.26 K/mm3 (0.16-1.47); MONOCYTES PERCENT AUTO 6 % (4-13); Mean Corpuscular HGB 30.4 pg (26.0-34.0); Mean Corpuscular HGB Conc 31.9 g/dL (31.5-36.5); Mean Corpuscular Volume 95 fL (80-100); Mean Platelet Volume 11.1 fL (9.1-12.4); NEUTROPHILS ABSOLUTE AUTO 4.03 K/mm3 (1.96-9.15); NEUTROPHILS PERCENT AUTO 86 % (41-73); Platelet Count 157 K/mm3 (150-400); RDW Coefficient Variation 15.8 % (11.7-14.2); RDW Standard Deviation 55.3 fL (35.1-46.3); Red Blood Cell Count 3.75 M/mm3 (4.30-5.90)
[2024-08-16 05:43] LABS: Albumin, Blood 3.4 g/dL (3.4-5.0); Albumin/Globulin Ratio 1.1 (0.8-1.8); Bilirubin, Total 0.6 mg/dL (0.1-1.0); Bun/Creatinine Ratio 23.6 (12.0-20.0); Calcium, Blood 9.4 mg/dL (8.5-10.1); Creatinine, Blood 0.8 mg/dL (0.60-1.20); Globulin, Blood 3.2 g/dL (2.2-4.0); Potassium, Blood 4.2 mmol/L (3.5-5.5); Total Protein, Blood 6.6 g/dL (6.4-8.2)
--- NOTE | 2024-08-16 06:43 | NUR ---
SHIFT SUMMARY: "JORGE" IS A&OX4. VSS, NO ACUTE EVENTS OVERNIGHT. PT WORE 3L VIA NC UNTIL CHANGING TO THE CPAP WHEN READY FOR BED. HE IS CONTINENT OF BLADDER AND BOWEL, DENIED ANY DIFFICULTIES WITH ELIMINATION. HE IS A ONE-PERSON ASSIST TO THE BATHROOM AND TOLERATES PO INTAKE WELL. HE IS ABLE TO SWALLOW HIS PILLS WHOLE WITH WATER WITHOUT DIFFICULTY. IV PATENT. HE IS LYING IN BED WITH THE CALL LIGHT IN REACH. WILL GIVE REPORT TO DAY SHIFT RN.
[2024-08-16 07:37] VITALS: BP 182/80
[2024-08-16] MEDS ORDERED: AMOCLA875 PO (10:41)
[2024-08-16] MEDS ORDERED: PRED20 PO (10:46)
[2024-08-16] MEDS ORDERED: GUAI600T33 PO (10:46)
[2024-08-16] MEDS ORDERED: AZIT500 PO (10:47)
== END 2024-08-16 12:51 | disposition home or self-care (01) | DRG 193 ==
LOC: ER 12:48 → MEDS 19:39 → ERHOLD 19:39 → MEDS 20:42 → ENPENDDIS 08-16 10:52 → MEDS 08-16 12:51
PROVIDERS: Emergency Medicine; Family Medicine; Hospitalist; Student in an Organized Health Care Education/Training Program; ADMIT Internal Medicine
PROC: 5A09457 Assistance with Respiratory Ventilation, 24-96 Consecutive Hours, Continuous Positive Airway Pressure (ICD-10-PCS; principal; 2024-08-12)
DX: J18.9 Pneumonia, unspecified organism (principal); I50.33 Acute on chronic diastolic (congestive) heart failure; J96.11 Chronic respiratory failure with hypoxia; J44.0 Chronic obstructive pulmonary disease with (acute) lower respiratory infection; J44.1 Chronic obstructive pulmonary disease with (acute) exacerbation; N40.0 Benign prostatic hyperplasia without lower urinary tract symptoms; I11.0 Hypertensive heart disease with heart failure; I48.91 Unspecified atrial fibrillation; Z95.0 Presence of cardiac pacemaker; Z99.81 Dependence on supplemental oxygen; Z98.890 Other specified postprocedural states; Z87.891 Personal history of nicotine dependence; Z79.51 Long term (current) use of inhaled steroids; Z79.52 Long term (current) use of systemic steroids; Z79.01 Long term (current) use of anticoagulants; Z79.899 Other long term (current) drug therapy
CPT/HCPCS: 0241U; 36415; 71046; 80053; 82947; 83735; 83880; 84484; 85025; 85379; 93005; 93010; 93306; 94640; 94660; 94664; 94762; 96374; 96375; 97116; 97161; 97530; 99285-25; A9270; J0456; J0696; J1650; J1940; J2919; J7050

== ENCOUNTER 2025-04-10 09:40 | Inpatient (IN) | payer OTHER ==
[2025-04-04 14:10] VITALS: BP 137/65
[2025-04-10] VITALS (17 sets, daily range): BP systolic 121–182; BP diastolic 61–91
[~2025-04-10] VITALS: Ht 172.7 cm; Wt 87.9 kg
[~2025-04-10 09:40] MED LIST changes: +AZIT500 PO; +FUROSEMIDE40 MG PO; +OXAYDO5 M2 PO; +Seroquel Xr50 MG PO; +TIOT18 INH; +TIZA4 PO
[2025-04-10] MEDS ORDERED: OxyCODONE HCL 10 MG TABCR PO SCH (09:45)
[2025-04-10] MEDS ORDERED: Tranexamic Acid 100 ML IV SCH ×2 (09:45→16:45)
[2025-04-10] MEDS ORDERED: Acetaminophen 500 MG Tab PO SCH (09:45)
[2025-04-10] MEDS ORDERED: Lactated Ringer's 1,000 ML IV SCH ×2 (09:45→16:45)
[2025-04-10] MEDS ORDERED: Chlorhexidine Mouth Care 15 ML UDC MT SCH (09:45)
[2025-04-10] MEDS ORDERED: CeFAZolin Sodium 2,000 MG in NS 100 ML IV SCH ×2 (09:45→22:00)
[2025-04-10] MEDS ORDERED: ASPI81CH PO (10:27)
--- NOTE | 2025-04-10 10:50 | NUR ---
PATIENT'S , TESSA, AT BEDSIDE WITH PATIENT TO REVIEW MEDICATIONS, ALLERGIES, AND REVIEW MEDICAL HX. PATIENT NOTED TO BE POOR HISTORIAN AND [place]. STATES HE GETS CONFUSED, BUT ALERT AND ORIENTED ENOUGH TO MAKE MEDICAL DECSIONS FOR HIMSELF. SHE LEFT AT 1050 AND SAID TO CALL WITH QUESTIONS. PATIENT IS NOTED TO BE ALERT AND ORIENTED X4.
[2025-04-10] MEDS ORDERED: FentaNYL Citrate 50 MCG/ML 2 ML Injection ONE (12:02)
[2025-04-10] MEDS ORDERED: Midazolam HCl 1MG / ML 2ML Vial ONE (12:02)
[2025-04-10] MEDS ORDERED: Bupivacaine 0.5% HCl 5 MG/ML 30MLVIAL ONE (12:04)
[2025-04-10] MEDS ORDERED: CeFAZolin Sodium 2,000 MG VIAL ONE (12:12)
--- NOTE | 2025-04-10 12:41 | NUR ---
TIME OUT FOR INERSCALENE BLOCK AT 1241 BLOCK START 1243 BLOCK STOP 1243
[2025-04-10] MEDS ORDERED: propofoL 20 ML IV ONE (12:49)
--- NOTE | 2025-04-10 12:58 | NUR ---
PATIENT RESTING QUIETLY. BIOX 95% ON 3L O2/NC. PATEINT TO GO TO OR SOON ANESTHESIOLOGIST CALLS FOR PATIENT.
--- NOTE | 2025-04-10 13:02 | NUR ---
PATIENT LEFT DENTURES AND HEARING AIDES AT HOME. GLASSES SENT WITH .
[2025-04-10] MEDS ORDERED: Ondansetron HCl 2 MG / ML 2ML Vial IV PRN ×2 (14:10→16:30)
[2025-04-10] MEDS ORDERED: FentaNYL Citrate 50 MCG/ML 2 ML Injection IV PRN ×2 (14:10)
[2025-04-10] MEDS ORDERED: Albuterol 2.5 MG/3 ML VIAL INH PRN (14:15)
[2025-04-10] MEDS ORDERED: Albuterol HFA200 ACT/6.7 GM INH ONE (15:32)
[2025-04-10] MEDS ORDERED: Tranexamic Acid 100 ML IV ONE (15:44)
[2025-04-10] MEDS ORDERED: Sugammadex Sodium 200 MG/2ML SDV (100 MG/ML) ONE (16:04)
[2025-04-10] MEDS ORDERED: Ondansetron HCl 2 MG / ML 2ML Vial ONE (16:04)
[2025-04-10] MEDS ORDERED: Albuterol HFA200 ACT/6.7 GM INH INH PRN (16:25)
[2025-04-10] MEDS ORDERED: Ipratropium Bromide INH 0.02% 0.5 mg/2.5ML Vial INH SCH (16:25)
[2025-04-10] MEDS ORDERED: Prochlorperazine Edisylate 10 mg Vial IV PRN (16:25)
[2025-04-10] MEDS ORDERED: Mometasone/Formoterol MDI 200/5 mcg 13 GM INH SCH (16:25)
[2025-04-10] MEDS ORDERED: DiphenhydrAMINE HCL 25 MG Cap PO PRN (16:30)
[2025-04-10] MEDS ORDERED: OxyCODONE HCL 5 MG TAB PO PRN ×2 (16:30)
[2025-04-10] MEDS ORDERED: Bisacodyl 10 MG Supp PR PRN (16:30)
[2025-04-10] MEDS ORDERED: Metoclopramide HCl 5MG / ML 2ML Vial IV PRN (16:35)
[2025-04-10] MEDS ORDERED: Magnesium Hydroxide Conc 10 ML UDC PO PRN (16:35)
[2025-04-10] MEDS ORDERED: Promethazine HCl 25 MG Tab PO PRN (16:35)
[2025-04-10] MEDS ORDERED: HYDROmorphone HCl/Pf 1MG SYR IV PRN (16:40)
--- NOTE | 2025-04-10 17:17 | NUR ---
PT TO ROOM 218 FROM PACU. VSS. SHOULDER IMMOBILIZER ON. POLAR PACK ON. PT [place]. DENIES COMPLAINTS. POST OP VS STARTED. WILL CONTINUE TO MONITOR
[2025-04-10] MEDS ORDERED: Ketorolac Tromethamine 15mg Vial IV SCH (18:00)
--- NOTE | 2025-04-10 18:02 | NUR ---
end of shift pt resting comfortably. able to wiggle fingers distally to surgical site. fingers "numb" per pt. shoulder immobilzer on. vss. will continue to monitor. pt without dentures or hearing aids as so took them home.
[2025-04-10] MEDS ORDERED: Gabapentin 300 MG Cap PO SCH (21:00)
[2025-04-10] MEDS ORDERED: Metoprolol Succinate 25 MG TABCR PO SCH (21:00)
[2025-04-10] MEDS ORDERED: DULoxetine HCL 60 MG Capsule DR PO SCH (21:00)
[2025-04-10] MEDS ORDERED: Docusate Sodium 100 MG Cap PO SCH (21:00)
[2025-04-10] MEDS ORDERED: QUEtiapine Fumarate 25 MG Tab PO SCH (21:00)
--- NOTE | 2025-04-10 21:43 | NUR ---
2130: THIS RN AND CHRIS RN TO PT ROOM FOR BLADDER SCAN AND 2X FAILED STRAIGHT CATH ATTEMPT. PER PT, DURING PAST KNEE PROCEDURE, PT HAD PROLONGED INPATIENT STAY DUE TO URINARY RETENTION. CHARGE NURSE NOTIFIED AND VERBAL ORDERS GIVEN FOR INDWELLING CATH ORDERS, AND HOSPITALIST CONSULT.
--- NOTE | 2025-04-10 22:41 | NUR ---
DR CONSULT DR CONSULT R/T PT BLEEDING FROM URETHRA. PT RETAINING URINE POST-OP, UNABLE TO SUCCESSFULLY PLACE RAMIREZ. DR STATED HE WOULD ASSESS PT @ BEDSIDE.
[2025-04-10] MEDS ORDERED: Tamsulosin HCl 0.4 MG Cap PO ONE (22:45)
--- NOTE | 2025-04-10 22:50 | NUR ---
URINARY RETENTION MULTIPLE RN TO ROOM TO ASSIST WITH CATHETERIZATION. CHARGE NURSE CALL TO HOSPITALIST AFTER FAILED ATTEMPTS TO RELIEVE RETENTION. ORDERS PLACED FOR MEDICATION; FLOMAX. EMAR SCAN COMPLETED AND THEN MEDICATIONS DELAYED DUE TO RAMIREZ CATHETER ATTEMPTS. PT REQUESTS TO GO TO RESTROOM TO ATTEMPT TO EMPTY BLADDER; PT WITH SOME SUCCESSFUL URINATION; DRIBBLING INTERMITTENTLY.
[2025-04-11] VITALS (7 sets, daily range): BP systolic 86–177; BP diastolic 48–74
[2025-04-11] MEDS ORDERED: Acetaminophen 500 MG Tab PO SCH
[2025-04-11] MEDS ORDERED: Lidocaine 2% Jelly Uro-Jet UR ONE (00:15)
[2025-04-11 04:32] LABS: BASOPHILS ABSOLUTE AUTO 0.02 K/mm3 (0.00-0.23); BASOPHILS PERCENT AUTO 0 % (0-2); EOSINOPHILS ABSOLUTE AUTO 0.09 K/mm3 (0.00-0.68); EOSINOPHILS PERCENT AUTO 1 % (0-6); Hematocrit 36.3 % (37.0-53.0); Hemoglobin 11.6 g/dL (13.5-17.5); IMMATURE GRAN ABSOLUTE AUTO 0.02 K/mm3 (0.00-0.10); IMMATURE GRAN PERCENT AUTO 0 % (0-1); LYMPHOCYTES ABSOLUTE AUTO 0.51 K/mm3 (0.84-5.20); LYMPHOCYTES PERCENT AUTO 8 % (21-46); MONOCYTES ABSOLUTE AUTO 0.87 K/mm3 (0.16-1.47); MONOCYTES PERCENT AUTO 14 % (4-13); Mean Corpuscular HGB 31.2 pg (26.0-34.0); Mean Corpuscular Volume 98 fL (80-100); Mean Platelet Volume 10.9 fL (9.1-12.4); NEUTROPHILS ABSOLUTE AUTO 4.93 K/mm3 (1.96-9.15); NEUTROPHILS PERCENT AUTO 77 % (41-73); Platelet Count 142 K/mm3 (150-400); RDW Coefficient Variation 14.6 % (11.7-14.2); RDW Standard Deviation 52.6 fL (35.1-46.3); Red Blood Cell Count 3.72 M/mm3 (4.30-5.90); White Blood Cell Count 6.44 K/mm3 (4.00-11.30)
[2025-04-11 04:56] LABS: Bun/Creatinine Ratio 15.2 (12.0-20.0); Calcium, Blood 8.8 mg/dL (8.5-10.1); Creatinine, Blood 0.92 mg/dL (0.60-1.20); Magnesium, Blood 1.8 mg/dL (1.6-2.4); Potassium, Blood 3.8 mmol/L (3.5-5.5)
--- NOTE | 2025-04-11 05:01 | NUR ---
SHIFT SUMMARY PT WITH URINARY RETENTION DURING SHIFT WITH MULTIPLE STAFF ATTEMPTING TO STRAIGHT CATH/INDWELLING CATH PT. PT REPORTS HX OF ISSUES PERTAINING TO URINARY SYSTEM AND VOIDING. ICU NURSE WAS ABLE TO PLACE INDWELLING CATHETER AND URINE NOW DRAINING TO RAMIREZ BAG WITH YELLOW URINE, ONE BLOOD CLOT IN RAMIREZ BAG. PT MEDICATED PER EMAR FOR PAIN PRN AND SCHEDULED. PT ABLE TO AMBULATE WITH SBA TO RESTROOM. POLAR PACK IN PLACE TO RIGHT SHOULDER. SHOULDER WITH SMALL AMOUNT OF REDNESS AT TAPE SITE THAT HAS NOT CHANGED DURING SHIFT.
[2025-04-11] MEDS ORDERED: Furosemide 40 MG Tab PO SCH (09:00)
[2025-04-11] MEDS ORDERED: Fenofibrate 67 MG Cap PO SCH (09:00)
[2025-04-11] MEDS ORDERED: Losartan Potassium 50 MG Tab PO SCH (09:00)
--- NOTE | 2025-04-11 11:35 | NUR ---
Pt.t is awake and sitting up in a chair when he welcomes my visit. Facilitated an lengthy life review which included the Pts. interests and former hometowns. Rapport was established as this motorcycle police officer sought to build common ground with the Pt. Prayed with the Pt. Pt. verbalized genuine gratitude for the spiritual care visit.
--- NOTE | 2025-04-11 19:35 | NUR ---
SHIFT SUMMARY PT TOLERATING FOOD AND LIQUIDS. WORKED w/PT & OT. UP IN THE CHAIR, NO ISSUES. 1 PERSON ASSIST TO AMBULATE. SNF RECOMMENDED, AWAITING INSURANCE AUTH. INCISIONS SITES WNL, REDNESS SURROUNDING CLEAR MESH DRESSING, UNCHANGED FROM THIS AM. RAMIREZ CATH DUE TO POST OP RETENTION, SMALL CLOTS IN DARK URINE.
--- NOTE | 2025-04-11 19:47 | NUR ---
REPORT FROM LEAH CARRILLO AND SN. LUCINDA RN TO ROOM FOR REPORT. PATIENT IN CHAIR AND HAS NO COMPLAINTS AT THIS TIME. CALL LIGHT WITHIN REACH.
[2025-04-12 00:02] VITALS: BP 116/62
--- NOTE | 2025-04-12 02:08 | NUR ---
RN TO ROOM; PT ASLEEP WITH CPAP/CONTINUOUS BIOX IN PLACE, CALL LIGHT WITHIN REACH.
--- NOTE | 2025-04-12 02:55 | NUR ---
RN TO ROOM TO ROUND. PT SLEEPING, CPAP IN PLACE, RAMIREZ DRAINING; EQUAL AND UNLABORED BREATHS. CALL LIGHT WITHIN REACH.
[2025-04-12 04:20] VITALS: BP 127/67
--- NOTE | 2025-04-12 05:57 | NUR ---
SHIFT SUMMARY NO ACUTE EVENTS OVERNIGHT. PT WAS IN CHAIR FOR A GOOD PORTION OF THE EVENING AND WAS RETURNED TO BED AFTER NIGHT MEDICATIONS. PT CPAP WAS PLACED AND CONT BIOX WAS PLACED. PT HAS RAMIREZ WITH DARK SID/TEA URINE AND INTERMITTENT BLOOD CLOTS. PT RIGHT SHOULDER INCISION WITH PRINEO CDI. REDNESS AROUND INCISION SITE WAS MARKED AND HAS NEITHER INCREASED OR DECREASED IN SIZE SINCE THE TIME OF MARKING. PT WAS ABLE TO 1X ASSIST BACK TO BED FROM CHAIR USING SHIVANI-WALKER AND GAIT BELT.
[2025-04-12 07:26] VITALS: BP 122/63
[2025-04-12 16:11] VITALS: BP 148/66
--- NOTE | 2025-04-12 16:59 | NUR ---
SHIFT SUMMARY POD 2 RIGHT TOTAL SHOULDER. ALERT AND ORIENTED X4 WITH SOME FORGETFULNESS. VSS. SATS >90% ON 1-2LPM 02 VIA NC. BASELINE AT HOME IS 3LPM. DENIES NUMBNESS TINGLING TO EXTREMITIES, STRONG RADIAL PULSES. DENIES CHEST PAIN, PRESSURE. PPP. CAP REFILL <3 SECONDS. WORKED WITH PT. AMBULATING IN HALLS. BED ALARM IN USE FOR SAFETY. RAMIREZ IN PLACE DRAINING SID URINE TO GRAVITY. PAIN MANAGED PER EMAR. PRINEO C/D/I. POLAR PACK IN PLACE. REDNESS TO RIGHT SHOULDER DOES NOT EXTEND PAST MARKED LINES. TOLERATING PO INTAKE. PLAN FOR DC TO [facility]. AWAITING TRANSPORT TIME. CALL LIGHT IN REACH.
--- NOTE | 2025-04-12 17:52 | NUR ---
D/C NO CHANGED SINCE PREVIOUS NOTE. PT D/C TO [facility]. POD 2 RIGHT TOTAL SHOULDER. REPORT GIVEN TO LEAH BARRIOS. PT LEFT THE UNIT AT APPROX 1742 VIA . HE LEFT WITH HIS PERSONAL BELONGINGS INCLUDING POLAR PACK. IV REMOVED.
== END 2025-04-12 17:45 | DRG 483 ==
LOC: ORSCMMR 09:40 → SURS 17:15 → ORSCMMR 17:16 → SURS 04-11 09:00 → ORSCMMR 04-21 07:30 → ORD 04-21 07:30
PROVIDERS: Orthopaedic Surgery; ADMIT Orthopaedic Surgery
PROC: 0RRJ0JZ Replacement of Right Shoulder Joint with Synthetic Substitute, Open Approach (ICD-10-PCS; principal; 2025-04-10 12:30)
DX: M19.011 Primary osteoarthritis, right shoulder (principal); I48.91 Unspecified atrial fibrillation; N40.0 Benign prostatic hyperplasia without lower urinary tract symptoms; J44.89 Other specified chronic obstructive pulmonary disease; E11.9 Type 2 diabetes mellitus without complications; G47.33 Obstructive sleep apnea (adult) (pediatric); E78.5 Hyperlipidemia, unspecified; I10 Essential (primary) hypertension; Z87.442 Personal history of urinary calculi; Z87.01 Personal history of pneumonia (recurrent); Z87.19 Personal history of other diseases of the digestive system; Z87.891 Personal history of nicotine dependence; Z79.51 Long term (current) use of inhaled steroids; Z79.899 Other long term (current) drug therapy; Z79.891 Long term (current) use of opiate analgesic
CPT/HCPCS: 36415; 73030; 80048; 82947; 83735; 85025; 94640; 94660; 94664; 94760; 94762; 97110; 97116; 97140; 97162; 97165; 97530; 97535; A9270; J0690; J1885; J2250; J2405; J2704; J3010; J7120

== ENCOUNTER 2025-05-05 08:43 | Emergency (ER) | payer OTHER ==
[~2025-05-05] VITALS: Ht 175.3 cm; Wt 84.8 kg
[~2025-05-05 08:43] MED LIST changes: +ASPI81CH PO
[2025-05-05 10:06] LABS: Source, Urine Clean Catch
[2025-05-05 10:12] LABS: Appearance, Urine Cloudy (Clear); Bilirubin, Urine Neg (Neg); Blood, Urine 4+ (Neg); Color, Urine Yellow (P-Yellow); Glucose Qualitative, Urine Neg (Neg); Ketones, Urine Neg (Neg); Leukocyte Esterase, Urine 3+ (Neg); Nitrite, Urine Pos (Neg); Protein, Urine 2+ (Neg); Urobilinogen, Urine NORM (Normal)
[2025-05-05 10:19] LABS: Bacteria Many /hpf; Red Blood Cells, Urine TNTC /hpf (0-2); Squamous Epithelial Cells Few /hpf (Few); White Blood Cells, Urine TNTC /hpf (0-5)
[2025-05-05 10:35] LABS: Renal Epithelial Few /hpf (0-Rare)
[2025-05-05] MEDS ORDERED: CEFP200 PO (10:40)
[2025-05-05 10:45] VITALS: BP 121/57
[2025-05-05] MEDS ORDERED: Lidocaine 2% Jelly Uro-Jet UR ONE (10:50)
== END 2025-05-05 11:07 | disposition home or self-care (01) ==
LOC: ER 08:43
PROVIDERS: Emergency Medicine
DX: N39.0 Urinary tract infection, site not specified (principal); J44.9 Chronic obstructive pulmonary disease, unspecified; I48.91 Unspecified atrial fibrillation; I11.0 Hypertensive heart disease with heart failure; I50.32 Chronic diastolic (congestive) heart failure; Z79.82 Long term (current) use of aspirin; Z79.52 Long term (current) use of systemic steroids; Z79.899 Other long term (current) drug therapy
CPT/HCPCS: 51702; 51798; 81001; 87077; 87086; 87186; 99283-25

== ENCOUNTER 2025-05-25 02:49 | Day surgery (SDC) | payer OTHER ==
[~2025-05-25 02:49] MED LIST changes: +ERTAPENEM1 G6 IV
[2025-05-25] MEDS ORDERED: Ertapenem Sodium 1,000 MG in NS 50 ML IV SCH (06:00)
[2025-05-25 13:58] VITALS: BP 119/57
== END 2025-05-25 14:13 | disposition home or self-care (01) ==
LOC: ATC 02:49
DX: N39.0 Urinary tract infection, site not specified (principal); B96.1 Klebsiella pneumoniae [K. pneumoniae] as the cause of diseases classified elsewhere; J44.9 Chronic obstructive pulmonary disease, unspecified; J96.11 Chronic respiratory failure with hypoxia; E11.42 Type 2 diabetes mellitus with diabetic polyneuropathy; I11.0 Hypertensive heart disease with heart failure; I50.32 Chronic diastolic (congestive) heart failure; I48.20 Chronic atrial fibrillation, unspecified; I49.5 Sick sinus syndrome; E78.5 Hyperlipidemia, unspecified; G25.0 Essential tremor; G47.33 Obstructive sleep apnea (adult) (pediatric); Z16.12 Extended spectrum beta lactamase (ESBL) resistance; Z79.82 Long term (current) use of aspirin; Z79.899 Other long term (current) drug therapy; Z95.0 Presence of cardiac pacemaker; Z99.81 Dependence on supplemental oxygen
CPT/HCPCS: 96365; J1335

== ENCOUNTER 2025-05-26 03:28 | Day surgery (SDC) | payer OTHER ==
[~2025-05-26 03:28] MED LIST changes: +Ertapenem Sodium 1,000 MG in NS 50 ML IV SCH
[2025-05-26 13:36] VITALS: BP 113/47
== END 2025-05-26 13:57 | disposition home or self-care (01) ==
LOC: ATC 03:28
DX: N39.0 Urinary tract infection, site not specified (principal); I11.0 Hypertensive heart disease with heart failure; I50.32 Chronic diastolic (congestive) heart failure; Z16.12 Extended spectrum beta lactamase (ESBL) resistance; J96.11 Chronic respiratory failure with hypoxia; G47.33 Obstructive sleep apnea (adult) (pediatric); Z99.89 Dependence on other enabling machines and devices; Z66 Do not resuscitate; Z79.899 Other long term (current) drug therapy; G93.41 Metabolic encephalopathy; J44.9 Chronic obstructive pulmonary disease, unspecified; E11.9 Type 2 diabetes mellitus without complications; I48.20 Chronic atrial fibrillation, unspecified; E78.5 Hyperlipidemia, unspecified
CPT/HCPCS: 96365; J1335

== ENCOUNTER 2025-05-27 01:33 | Day surgery (SDC) | payer OTHER ==
[2025-05-27 13:27] VITALS: BP 119/49
== END 2025-05-27 13:42 | disposition home or self-care (01) ==
LOC: ATC 01:33
DX: N39.0 Urinary tract infection, site not specified (principal); B96.1 Klebsiella pneumoniae [K. pneumoniae] as the cause of diseases classified elsewhere; J44.9 Chronic obstructive pulmonary disease, unspecified; J96.11 Chronic respiratory failure with hypoxia; E11.42 Type 2 diabetes mellitus with diabetic polyneuropathy; I11.0 Hypertensive heart disease with heart failure; I50.32 Chronic diastolic (congestive) heart failure; I48.20 Chronic atrial fibrillation, unspecified; E78.5 Hyperlipidemia, unspecified; G25.0 Essential tremor; I49.5 Sick sinus syndrome; G47.33 Obstructive sleep apnea (adult) (pediatric); Z16.12 Extended spectrum beta lactamase (ESBL) resistance; Z66 Do not resuscitate; Z79.82 Long term (current) use of aspirin; Z79.899 Other long term (current) drug therapy; Z95.0 Presence of cardiac pacemaker; Z99.81 Dependence on supplemental oxygen
CPT/HCPCS: 96365; J1335

== ENCOUNTER 2025-06-01 12:20 | Emergency (ER) | payer OTHER ==
[~2025-06-01] VITALS: Ht 175.3 cm; Wt 86.2 kg
[~2025-06-01 12:20] MED LIST changes: -Ertapenem Sodium 1,000 MG in NS 50 ML IV SCH
[2025-06-01 13:10] LABS: BASOPHILS ABSOLUTE AUTO 0.02 K/mm3 (0.00-0.23); BASOPHILS PERCENT AUTO 1 % (0-2); EOSINOPHILS ABSOLUTE AUTO 0.22 K/mm3 (0.00-0.68); EOSINOPHILS PERCENT AUTO 5 % (0-6); Hematocrit 35.9 % (37.0-53.0); Hemoglobin 10.9 g/dL (13.5-17.5); IMMATURE GRAN ABSOLUTE AUTO 0.01 K/mm3 (0.00-0.10); IMMATURE GRAN PERCENT AUTO 0 % (0-1); LYMPHOCYTES ABSOLUTE AUTO 0.74 K/mm3 (0.84-5.20); LYMPHOCYTES PERCENT AUTO 18 % (21-46); MONOCYTES ABSOLUTE AUTO 0.39 K/mm3 (0.16-1.47); MONOCYTES PERCENT AUTO 9 % (4-13); Mean Corpuscular HGB Conc 30.4 g/dL (31.5-36.5); Mean Corpuscular Volume 97 fL (80-100); NEUTROPHILS ABSOLUTE AUTO 2.84 K/mm3 (1.96-9.15); NEUTROPHILS PERCENT AUTO 67 % (41-73); NRBC ABSOLUTE 0.00 K/mm3 (0.00-0.02); NRBC Auto 0.0 /100 WBC (0.0-0.2); Platelet Count 147 K/mm3 (150-400); RDW Coefficient Variation 16.1 % (11.7-14.2); RDW Standard Deviation 57.1 fL (35.1-46.3)
[2025-06-01 13:44] LABS: Alanine Aminotransfer (ALT/SGP 22.0 U/L (12-78); Albumin, Blood 3.2 g/dL (3.4-5.0); Albumin/Globulin Ratio 0.9 (0.8-1.8); Anion Gap 5.0 mmol/L (3-11); Aspartate Aminotrans (AST/SGOT 23.0 U/L (12-37); Bilirubin, Total 0.3 mg/dL (0.1-1.0); Blood Urea Nitrogen 17.0 mg/dL (8-24); CO2, Blood 33.0 mmol/L (21-32); Calcium, Blood 9.1 mg/dL (8.5-10.1); Chloride, Blood 107.0 mmol/L (98-108); Creatinine, Blood 0.8 mg/dL (0.60-1.20); Globulin, Blood 3.6 g/dL (2.2-4.0); Glucose, Blood 123.0 mg/dL (70-99); Potassium, Blood 3.8 mmol/L (3.5-5.5); Sodium, Blood 141.0 mmol/L (136-145); Total Protein, Blood 6.8 g/dL (6.4-8.2)
[2025-06-01 18:11] LABS: Source, Urine Foley catheter
[2025-06-01 18:14] LABS: Bilirubin, Urine Neg (Neg); Color, Urine Yellow (P-Yellow); Glucose Qualitative, Urine Neg (Neg); Ketones, Urine Neg (Neg); Leukocyte Esterase, Urine Neg (Neg); Protein, Urine Neg (Neg); Specific Gravity, Urine 1.010 (1.003-1.022); Urobilinogen, Urine NORM (Normal)
[2025-06-01 18:30] LABS: White Blood Cells, Urine 0-2 /hpf (0-5)
[2025-06-01] MEDS ORDERED: MIRALAX17 GM PO (20:16)
[2025-06-01 20:29] VITALS: BP 146/84
== END 2025-06-01 20:30 | disposition home or self-care (01) ==
LOC: ER 12:20
PROVIDERS: Physician Assistant
DX: T83.091A Other mechanical complication of indwelling urethral catheter, initial encounter (principal); R33.9 Retention of urine, unspecified; K59.00 Constipation, unspecified; Z79.899 Other long term (current) drug therapy; Z79.2 Long term (current) use of antibiotics; Z79.82 Long term (current) use of aspirin; E11.9 Type 2 diabetes mellitus without complications; J44.9 Chronic obstructive pulmonary disease, unspecified; I48.91 Unspecified atrial fibrillation; I11.0 Hypertensive heart disease with heart failure; I50.32 Chronic diastolic (congestive) heart failure; Z95.2 Presence of prosthetic heart valve; Z87.891 Personal history of nicotine dependence
CPT/HCPCS: 51702; 74177; 80053; 81001; 85025; 99284-25; Q9967

== ENCOUNTER 2025-07-06 12:54 | Inpatient (IN) | payer OTHER ==
[~2025-07-06] VITALS: Ht 175.3 cm; Wt 87.5 kg
[~2025-07-06 12:54] MED LIST changes: +MIRALAX17 GM PO
[2025-07-06 13:28] LABS: BASOPHILS ABSOLUTE AUTO 0.03 K/mm3 (0.00-0.23); BASOPHILS PERCENT AUTO 1 % (0-2); EOSINOPHILS ABSOLUTE AUTO 0.19 K/mm3 (0.00-0.68); EOSINOPHILS PERCENT AUTO 4 % (0-6); Hematocrit 39.3 % (37.0-53.0); Hemoglobin 12.4 g/dL (13.5-17.5); IMMATURE GRAN ABSOLUTE AUTO 0.02 K/mm3 (0.00-0.10); IMMATURE GRAN PERCENT AUTO 0 % (0-1); LYMPHOCYTES ABSOLUTE AUTO 0.80 K/mm3 (0.84-5.20); LYMPHOCYTES PERCENT AUTO 16 % (21-46); MONOCYTES ABSOLUTE AUTO 0.60 K/mm3 (0.16-1.47); MONOCYTES PERCENT AUTO 12 % (4-13); Mean Corpuscular HGB Conc 31.6 g/dL (31.5-36.5); Mean Corpuscular Volume 95 fL (80-100); NEUTROPHILS ABSOLUTE AUTO 3.50 K/mm3 (1.96-9.15); NEUTROPHILS PERCENT AUTO 68 % (41-73); NRBC ABSOLUTE 0.00 K/mm3 (0.00-0.02); NRBC Auto 0.0 /100 WBC (0.0-0.2); Platelet Count 162 K/mm3 (150-400); RDW Coefficient Variation 16.2 % (11.7-14.2); RDW Standard Deviation 57.4 fL (35.1-46.3)
[2025-07-06 13:58] LABS: Alanine Aminotransfer (ALT/SGP 20.0 U/L (12-78); Albumin, Blood 3.5 g/dL (3.4-5.0); Albumin/Globulin Ratio 0.9 (0.8-1.8); Anion Gap 1.0 mmol/L (3-11); Aspartate Aminotrans (AST/SGOT 21.0 U/L (12-37); Bilirubin, Total 0.6 mg/dL (0.1-1.0); Blood Urea Nitrogen 23.0 mg/dL (8-24); CO2, Blood 33.0 mmol/L (21-32); Calcium, Blood 9.8 mg/dL (8.5-10.1); Chloride, Blood 104.0 mmol/L (98-108); Creatinine, Blood 0.93 mg/dL (0.60-1.20); Globulin, Blood 3.7 g/dL (2.2-4.0); Glucose, Blood 141.0 mg/dL (70-99); Potassium, Blood 3.7 mmol/L (3.5-5.5); Sodium, Blood 134.0 mmol/L (136-145); Total Protein, Blood 7.2 g/dL (6.4-8.2)
[2025-07-06 16:10] LABS: Source, Urine Foley catheter
[2025-07-06 16:26] LABS: Bilirubin, Urine Neg (Neg); Color, Urine Yellow (P-Yellow); Glucose Qualitative, Urine Neg (Neg); Ketones, Urine Neg (Neg); Leukocyte Esterase, Urine 3+ (Neg); Protein, Urine 2+ (Neg); Specific Gravity, Urine 1.025 (1.003-1.022); Urobilinogen, Urine NORM (Normal)
[2025-07-06] MEDS ORDERED: Ketorolac Tromethamine 15mg Vial IV ONE (16:45)
[2025-07-06] MEDS ORDERED: Meropenem 2,000 MG in NS 250 ML IV ONE (19:50)
[2025-07-06] MEDS ORDERED: Albuterol 2.5 MG/3 ML VIAL INH PRN (20:05)
[2025-07-06] MEDS ORDERED: Tiotropium Bromide 2.5 MCG/ACT MIST INHAL (10 ACT/4 GM) INH SCH (20:10)
[2025-07-06] MEDS ORDERED: Ondansetron HCl 2 MG / ML 2ML Vial IV PRN (20:15)
[2025-07-06] MEDS ORDERED: Formoterol/Mometasone MDI 5/200 mcg 13 GM INH SCH (20:25)
[2025-07-06] MEDS ORDERED: Lactobacil 2-S.Thermo-Bifido 1 1 Cap PO SCH (21:00)
[2025-07-06] MEDS ORDERED: Diazepam 5 MG / ML 2ML SYR IV ONE ×2 (21:00)
[2025-07-06] MEDS ORDERED: DULoxetine HCL 60 MG Capsule DR PO SCH (21:00)
[2025-07-06 22:45] VITALS: BP 147/63
[2025-07-06] MEDS ORDERED: NS 250 ML IV PRN (23:25)
[2025-07-07] MEDS ORDERED: Meropenem 2,000 MG in NS 250 ML IV SCH
[2025-07-07] MEDS ORDERED: Piperacillin/Tazobactam Sod 3.375 GM in NS 100 ML IV SCH
[2025-07-07 05:08] LABS: BASOPHILS ABSOLUTE AUTO 0.03 K/mm3 (0.00-0.23); BASOPHILS PERCENT AUTO 1 % (0-2); EOSINOPHILS ABSOLUTE AUTO 0.25 K/mm3 (0.00-0.68); EOSINOPHILS PERCENT AUTO 6 % (0-6); Hematocrit 36.5 % (37.0-53.0); Hemoglobin 11.4 g/dL (13.5-17.5); IMMATURE GRAN ABSOLUTE AUTO 0.01 K/mm3 (0.00-0.10); IMMATURE GRAN PERCENT AUTO 0 % (0-1); LYMPHOCYTES ABSOLUTE AUTO 0.76 K/mm3 (0.84-5.20); LYMPHOCYTES PERCENT AUTO 17 % (21-46); MONOCYTES ABSOLUTE AUTO 0.67 K/mm3 (0.16-1.47); MONOCYTES PERCENT AUTO 15 % (4-13); Mean Corpuscular HGB Conc 31.2 g/dL (31.5-36.5); Mean Corpuscular Volume 96 fL (80-100); NEUTROPHILS ABSOLUTE AUTO 2.85 K/mm3 (1.96-9.15); NEUTROPHILS PERCENT AUTO 62 % (41-73); NRBC ABSOLUTE 0.00 K/mm3 (0.00-0.02); NRBC Auto 0.0 /100 WBC (0.0-0.2); Platelet Count 132 K/mm3 (150-400); RDW Coefficient Variation 16.4 % (11.7-14.2); RDW Standard Deviation 58.4 fL (35.1-46.3)
[2025-07-07 05:14] VITALS: BP 165/74
[2025-07-07 05:48] LABS: Anion Gap 5.0 mmol/L (3-11); Blood Urea Nitrogen 24.0 mg/dL (8-24); CO2, Blood 33.0 mmol/L (21-32); Calcium, Blood 9.0 mg/dL (8.5-10.1); Chloride, Blood 108.0 mmol/L (98-108); Creatinine, Blood 1.05 mg/dL (0.60-1.20); Glucose, Blood 104.0 mg/dL (70-99); Magnesium, Blood 2.0 mg/dL (1.6-2.4); Potassium, Blood 3.7 mmol/L (3.5-5.5); Sodium, Blood 142.0 mmol/L (136-145)
--- NOTE | 2025-07-07 06:28 | NUR ---
SHIFT SUMMARY PT ADMITTED TO ROOM 334 AT 2230 FOR UTI. PT IN ISOLATION FOR ESBL. RAMIREZ DRAINING YELLOW URINE. 3L NC MAINTAINED PER BASELINE WITH CPAP AT HS. IVF AND IV ANTIBIOTICS INFUSING PER ORDER. PT A&O BUT FORGETFUL AND [place].
[2025-07-07 07:36] VITALS: BP 143/74
[2025-07-07] MEDS ORDERED: Enoxaparin 40 MG/0.4 ML SYR SC SCH (09:00)
[2025-07-07 16:41] VITALS: BP 161/67
--- NOTE | 2025-07-07 17:02 | NUR ---
SHIFT SUMMARY: A&OX4 THROUGHOUT SHIFT. PLEASANT AND COOPERATIVE WITH CARE. PT IN TO EVALUATE PT TODAY. PT UP TO CHAIR MULTIPLE TIMES WITH A SBA. RAMIREZ CATHETER REMAINS IN PLACE. PATENT AND DRAINING TO GRAVITY. CONTINUES ON 3L O2 VIA NC. DENIES SHORTNESS OF BREATH. O2 SATS >88% THROUGHOUT SHIFT. LYING IN BED AT THIS TIME. BREATHING EQUAL AND NONLABORED. DENIES CHEST PAIN AND/OR DISCOMFORT. BED LOCKED AND IN THE LOWEST POSITION. CALL LT WITHIN REACH. BED ALARM SET FOR SAFETY.
[2025-07-07 19:35] VITALS: BP 155/78
[2025-07-08 03:49] VITALS: BP 141/66
--- NOTE | 2025-07-08 07:18 | NUR ---
Shift Summary AOx3-4. Pleasant/Cooperative. Extremely UPPER SKAG[place]'ing. Wearing and tolerating CPAP with 3L bled in at night. Patient did wake up and had gotten out of the bed, set the alarm off and was not even aware the alarm sounded. As soon as patient saw that I was in the room, patient snapped back and apologized saying he didn't know what he was doing then sat back down and laid back down. Easily redirectable. Denies pain. VSS. Bed alarm on.
[2025-07-08 07:24] VITALS: BP 152/70
[2025-07-08 08:22] LABS: BASOPHILS ABSOLUTE AUTO 0.03 K/mm3 (0.00-0.23); BASOPHILS PERCENT AUTO 1 % (0-2); EOSINOPHILS ABSOLUTE AUTO 0.20 K/mm3 (0.00-0.68); EOSINOPHILS PERCENT AUTO 4 % (0-6); Hematocrit 36.9 % (37.0-53.0); Hemoglobin 11.7 g/dL (13.5-17.5); IMMATURE GRAN ABSOLUTE AUTO 0.01 K/mm3 (0.00-0.10); IMMATURE GRAN PERCENT AUTO 0 % (0-1); LYMPHOCYTES ABSOLUTE AUTO 0.69 K/mm3 (0.84-5.20); LYMPHOCYTES PERCENT AUTO 12 % (21-46); MONOCYTES ABSOLUTE AUTO 0.57 K/mm3 (0.16-1.47); MONOCYTES PERCENT AUTO 10 % (4-13); Mean Corpuscular HGB Conc 31.7 g/dL (31.5-36.5); Mean Corpuscular Volume 95 fL (80-100); NEUTROPHILS ABSOLUTE AUTO 4.14 K/mm3 (1.96-9.15); NEUTROPHILS PERCENT AUTO 74 % (41-73); NRBC ABSOLUTE 0.00 K/mm3 (0.00-0.02); NRBC Auto 0.0 /100 WBC (0.0-0.2); Platelet Count 133 K/mm3 (150-400); RDW Coefficient Variation 16.2 % (11.7-14.2); RDW Standard Deviation 55.8 fL (35.1-46.3)
[2025-07-08 08:42] LABS: Alanine Aminotransfer (ALT/SGP 16.0 U/L (12-78); Albumin, Blood 3.0 g/dL (3.4-5.0); Albumin/Globulin Ratio 0.8 (0.8-1.8); Anion Gap 4.0 mmol/L (3-11); Aspartate Aminotrans (AST/SGOT 17.0 U/L (12-37); Bilirubin, Total 0.7 mg/dL (0.1-1.0); Blood Urea Nitrogen 13.0 mg/dL (8-24); CO2, Blood 32.0 mmol/L (21-32); Calcium, Blood 8.6 mg/dL (8.5-10.1); Chloride, Blood 106.0 mmol/L (98-108); Creatinine, Blood 0.95 mg/dL (0.60-1.20); Globulin, Blood 3.6 g/dL (2.2-4.0); Glucose, Blood 114.0 mg/dL (70-99); Potassium, Blood 4.3 mmol/L (3.5-5.5); Sodium, Blood 138.0 mmol/L (136-145); Total Protein, Blood 6.6 g/dL (6.4-8.2)
[2025-07-08 15:23] VITALS: BP 116/60
--- NOTE | 2025-07-08 17:00 | NUR ---
PATIENT A/OX3-4, FORGETFUL AT TIMES. VSS, CONTINUES ON 3LO2 TO MAINTAIN SATS WHICH IS BASELINE. USES CPAP AT NOC. RAMIREZ TO GRAVITY WITH ADEQUATE U/O. TYLENOL GIVEN X1 FOR BACK PAIN WITH STATED RELIEF. PATIENT VERY DROWSY AFTER MORNING SEROQUEL. SARY AT BEDSIDE THIS AM AND AFTERNOON. UP TO CHAIR FOR MEALS WITH 1PA AND FWW. SKIN INTACT. FALL PRECAUTIONS IN PLACE AND BED ALARM SET FOR SAFETY. NO NEW CONCERNS THIS SHIFT. PLAN IS TO STAY IN HOSPITAL UNTIL UROLOGY APPOINTMENT ON 07/12.
[2025-07-08 19:40] VITALS: BP 141/62
--- NOTE | 2025-07-09 04:02 | NUR ---
SHIFT SUMMARY: PT IS AOX3. PT IS VERY FED[place]ATED [place] BUT ABLE TO MAKE NEEDS KNOWN FOR THE MOST PART. PT HAS A CHRONIC RAMIREZ THEY IS HANGING BELOW THE BLADDER AND DRAINING TO GRAVITY. NO ACUTE CHANGES THIS SHIFT. PT MEDICATED PER EMAR.
[2025-07-09 05:26] VITALS: BP 141/72
[2025-07-09 07:25] VITALS: BP 147/103
[2025-07-09 09:05] LABS: BASOPHILS ABSOLUTE AUTO 0.02 K/mm3 (0.00-0.23); BASOPHILS PERCENT AUTO 0 % (0-2); EOSINOPHILS ABSOLUTE AUTO 0.19 K/mm3 (0.00-0.68); EOSINOPHILS PERCENT AUTO 4 % (0-6); Hematocrit 36.9 % (37.0-53.0); Hemoglobin 11.8 g/dL (13.5-17.5); IMMATURE GRAN ABSOLUTE AUTO 0.01 K/mm3 (0.00-0.10); IMMATURE GRAN PERCENT AUTO 0 % (0-1); LYMPHOCYTES ABSOLUTE AUTO 0.60 K/mm3 (0.84-5.20); LYMPHOCYTES PERCENT AUTO 13 % (21-46); MONOCYTES ABSOLUTE AUTO 0.57 K/mm3 (0.16-1.47); MONOCYTES PERCENT AUTO 12 % (4-13); Mean Corpuscular HGB Conc 32.0 g/dL (31.5-36.5); Mean Corpuscular Volume 95 fL (80-100); NEUTROPHILS ABSOLUTE AUTO 3.22 K/mm3 (1.96-9.15); NEUTROPHILS PERCENT AUTO 70 % (41-73); NRBC ABSOLUTE 0.00 K/mm3 (0.00-0.02); NRBC Auto 0.0 /100 WBC (0.0-0.2); Platelet Count 130 K/mm3 (150-400); RDW Coefficient Variation 16.1 % (11.7-14.2); RDW Standard Deviation 56.0 fL (35.1-46.3)
[2025-07-09 09:20] LABS: Alanine Aminotransfer (ALT/SGP 17.0 U/L (12-78); Albumin, Blood 3.1 g/dL (3.4-5.0); Albumin/Globulin Ratio 0.8 (0.8-1.8); Anion Gap 4.0 mmol/L (3-11); Aspartate Aminotrans (AST/SGOT 23.0 U/L (12-37); Bilirubin, Total 0.9 mg/dL (0.1-1.0); Blood Urea Nitrogen 13.0 mg/dL (8-24); CO2, Blood 33.0 mmol/L (21-32); Calcium, Blood 8.8 mg/dL (8.5-10.1); Chloride, Blood 103.0 mmol/L (98-108); Creatinine, Blood 0.89 mg/dL (0.60-1.20); Globulin, Blood 3.7 g/dL (2.2-4.0); Glucose, Blood 176.0 mg/dL (70-99); Potassium, Blood 4.4 mmol/L (3.5-5.5); Sodium, Blood 136.0 mmol/L (136-145); Total Protein, Blood 6.8 g/dL (6.4-8.2)
[2025-07-09 14:51] VITALS: BP 137/75
--- NOTE | 2025-07-09 16:48 | NUR ---
PATIENT A/OX4 TODAY, UP WITH SBA TO CHAIR. UP IN CHAIR FOR MOST OF THE SHIFT. [place] THIS AM AND PATIENT HAS BEEN AWAKE, CALM AND COOPERATIVE WITH CARE. RAMIREZ TO GRAVITY WITH ADEQUATE U/O. TOLERATING REGULAR DIET, GOOD APPETITE. PATIENT DENIES ANY PAIN TODAY. NO NEW CONCERNS THIS SHIFT. AWAITING DC ON 07/12.
[2025-07-09 19:30] VITALS: BP 149/69
[2025-07-10 04:39] VITALS: BP 138/91
--- NOTE | 2025-07-10 04:45 | NUR ---
SUMMARY: PT A/OX3, IS PLEASANT AND COOPERATIVE W/CARE AND SPECIFIES NEEDS WHEN STAFF IN ROOM. HE'S UP W/SBA AND HAS BED ALARM ON FOR POSSIBLE IMPULSIVITY. CHRONIC RAMIREZ IS PATENT/DRAINING AND IV ABX RECEIVED FOR UTI. HE'S ON 3L O2 VIA NC AND TOLERATED CPAP AT HS PER BASELINE W/CONT BIOX INTACT. PM IS PRESENT AND HR REMAINS 48-50'S BPM W/MD PREVIOUSLY MADE AWARE. NO ACUTE CHANGES, VSS AND AFEBRILE. WILL REPORT TO DAY RN.
[2025-07-10 07:19] VITALS: BP 164/69
[2025-07-10 08:28] LABS: BASOPHILS ABSOLUTE AUTO 0.02 K/mm3 (0.00-0.23); BASOPHILS PERCENT AUTO 0 % (0-2); EOSINOPHILS ABSOLUTE AUTO 0.21 K/mm3 (0.00-0.68); EOSINOPHILS PERCENT AUTO 5 % (0-6); Hematocrit 37.2 % (37.0-53.0); Hemoglobin 11.7 g/dL (13.5-17.5); IMMATURE GRAN ABSOLUTE AUTO 0.01 K/mm3 (0.00-0.10); IMMATURE GRAN PERCENT AUTO 0 % (0-1); LYMPHOCYTES ABSOLUTE AUTO 0.75 K/mm3 (0.84-5.20); LYMPHOCYTES PERCENT AUTO 17 % (21-46); MONOCYTES ABSOLUTE AUTO 0.55 K/mm3 (0.16-1.47); MONOCYTES PERCENT AUTO 12 % (4-13); Mean Corpuscular HGB Conc 31.5 g/dL (31.5-36.5); Mean Corpuscular Volume 94 fL (80-100); NEUTROPHILS ABSOLUTE AUTO 2.92 K/mm3 (1.96-9.15); NEUTROPHILS PERCENT AUTO 66 % (41-73); NRBC ABSOLUTE 0.00 K/mm3 (0.00-0.02); NRBC Auto 0.0 /100 WBC (0.0-0.2); Platelet Count 134 K/mm3 (150-400); RDW Coefficient Variation 15.9 % (11.7-14.2); RDW Standard Deviation 55.4 fL (35.1-46.3)
[2025-07-10 08:48] LABS: Alanine Aminotransfer (ALT/SGP 17.0 U/L (12-78); Albumin, Blood 3.1 g/dL (3.4-5.0); Albumin/Globulin Ratio 0.8 (0.8-1.8); Anion Gap 5.0 mmol/L (3-11); Aspartate Aminotrans (AST/SGOT 20.0 U/L (12-37); Bilirubin, Total 0.4 mg/dL (0.1-1.0); Blood Urea Nitrogen 14.0 mg/dL (8-24); CO2, Blood 34.0 mmol/L (21-32); Calcium, Blood 8.9 mg/dL (8.5-10.1); Chloride, Blood 106.0 mmol/L (98-108); Creatinine, Blood 0.86 mg/dL (0.60-1.20); Globulin, Blood 3.9 g/dL (2.2-4.0); Glucose, Blood 105.0 mg/dL (70-99); Potassium, Blood 4.2 mmol/L (3.5-5.5); Sodium, Blood 141.0 mmol/L (136-145); Total Protein, Blood 7.0 g/dL (6.4-8.2)
[2025-07-10] MEDS ORDERED: Piperacillin/Tazobactam Sod 3.375 GM ONE (14:59)
[2025-07-10] MEDS ORDERED: Piperacillin/Tazobactam Sod 3.375 GM in NS 100 ML IV SCH (15:00)
[2025-07-10 15:19] VITALS: BP 136/60
--- NOTE | 2025-07-10 18:21 | NUR ---
SHIFT SUMMARY: A&OX3 THROUGHOUT SHIFT. COOPERATIVE WITH CARE. NO ACUTE CHANGES. REMAINS ON 3L O2 WITH SATS >88%. RAMIREZ CATHETER REMAINS IN PLACE. PATENT AND DRAINING TO GRAVITY. SITTING UP IN BED. BED LOCKED AND IN THE LOWEST POSITION. CALL LT WITHIN REACH. BED ALARM SET FOR SAFFETY.
[2025-07-10 19:38] VITALS: BP 133/60
--- NOTE | 2025-07-11 05:27 | NUR ---
SUMMARY: PT A/OX3 AND IS [place] BUT SPECIFIES NEEDS WHEN STAFF IN ROOM AND IS PLEASANT AND COOPERATIVE W/CARE. HE'S SBA OOB W/BED ALARM FOR SAFETY AND POSSIBLE IMPULSIVITY. IV ABX RECEIVED FOR UTI PER EMAR THEN SL'D. CHRONIC RAMIREZ IS PATENT/DRAINING. HE REMAINS ON 3L O2 PER BASELINE AND TOLERATES CPAP AT HS W/CONT BIOX INTACT. PM PRESENT AND HR SUSTAINS 40'S-50'S BPM. NO ACUTE CHANGES, VSS/AFEBRILE. WILL REPORT TO DAY RN.
[2025-07-11 06:21] LABS: BASOPHILS ABSOLUTE AUTO 0.03 K/mm3 (0.00-0.23); BASOPHILS PERCENT AUTO 1 % (0-2); EOSINOPHILS ABSOLUTE AUTO 0.21 K/mm3 (0.00-0.68); EOSINOPHILS PERCENT AUTO 5 % (0-6); Hematocrit 36.7 % (37.0-53.0); Hemoglobin 11.5 g/dL (13.5-17.5); IMMATURE GRAN ABSOLUTE AUTO 0.01 K/mm3 (0.00-0.10); IMMATURE GRAN PERCENT AUTO 0 % (0-1); LYMPHOCYTES ABSOLUTE AUTO 0.70 K/mm3 (0.84-5.20); LYMPHOCYTES PERCENT AUTO 16 % (21-46); MONOCYTES ABSOLUTE AUTO 0.55 K/mm3 (0.16-1.47); MONOCYTES PERCENT AUTO 13 % (4-13); Mean Corpuscular HGB Conc 31.3 g/dL (31.5-36.5); Mean Corpuscular Volume 95 fL (80-100); NEUTROPHILS ABSOLUTE AUTO 2.87 K/mm3 (1.96-9.15); NEUTROPHILS PERCENT AUTO 66 % (41-73); NRBC ABSOLUTE 0.00 K/mm3 (0.00-0.02); NRBC Auto 0.0 /100 WBC (0.0-0.2); Platelet Count 141 K/mm3 (150-400); RDW Coefficient Variation 16.0 % (11.7-14.2); RDW Standard Deviation 56.1 fL (35.1-46.3)
[2025-07-11 06:39] LABS: Alanine Aminotransfer (ALT/SGP 19.0 U/L (12-78); Albumin, Blood 3.0 g/dL (3.4-5.0); Albumin/Globulin Ratio 0.9 (0.8-1.8); Anion Gap 0.0 mmol/L (3-11); Aspartate Aminotrans (AST/SGOT 19.0 U/L (12-37); Bilirubin, Total 0.5 mg/dL (0.1-1.0); Blood Urea Nitrogen 15.0 mg/dL (8-24); CO2, Blood 37.0 mmol/L (21-32); Calcium, Blood 9.2 mg/dL (8.5-10.1); Chloride, Blood 106.0 mmol/L (98-108); Creatinine, Blood 0.95 mg/dL (0.60-1.20); Globulin, Blood 3.5 g/dL (2.2-4.0); Glucose, Blood 107.0 mg/dL (70-99); Potassium, Blood 4.2 mmol/L (3.5-5.5); Sodium, Blood 139.0 mmol/L (136-145); Total Protein, Blood 6.5 g/dL (6.4-8.2)
[2025-07-11 07:24] VITALS: BP 171/72
[2025-07-11] MEDS ORDERED: Acetaminophen650 M1 PO (12:52)
[2025-07-11] MEDS ORDERED: Piperacillin/Tazobactam Sod 3.375 GM ONE (14:23)
--- NOTE | 2025-07-11 14:38 | NUR ---
NOTE: NOTIFIED PROVIDER OF BLOOD/CLOTS IN URINE. DR. LEZAMA SAID OKAY TO STILL DC, PT WILL BE SEEING UROLOGIST TOMORROW FOR IMAGING ANYWAYS. HE SAID JUST TO KEEP MONITORING.
[2025-07-11 15:15] VITALS: BP 146/65
--- NOTE | 2025-07-11 17:03 | NUR ---
DISCHARGE NOTE PT DISCHARGED TO HOME, PICKED UP BY HIS . IV REMOVED. NO NEW MEDICATIONS. DISCHARGE EDUCATION AND INFORMATION REVIEWED AND PROVIDED TO THE PT. PT HAD PORTABLE OXYGEN. PERSONAL BELONGINGS RETURNED.
== END 2025-07-11 16:45 | disposition home health service (06) | DRG 698 ==
LOC: ER 12:54 → ERHOLD 20:10 → MEDS 20:10
PROVIDERS: Family Medicine; Nurse Practitioner Acute Care; Physician Assistant; ADMIT Student in an Organized Health Care Education/Training Program
PROC: 5A09357 Assistance with Respiratory Ventilation, Less than 24 Consecutive Hours, Continuous Positive Airway Pressure (ICD-10-PCS; principal; 2025-07-06)
PROC: 0T9B70Z Drainage of Bladder with Drainage Device, Via Natural or Artificial Opening (ICD-10-PCS; 2025-07-06)
PROC: 3E03329 Introduction of Other Anti-infective into Peripheral Vein, Percutaneous Approach (ICD-10-PCS; 2025-07-06)
DX: T83.511A Infection and inflammatory reaction due to indwelling urethral catheter, initial encounter (principal); G93.41 Metabolic encephalopathy; Z16.11 Resistance to penicillins; J96.11 Chronic respiratory failure with hypoxia; I48.20 Chronic atrial fibrillation, unspecified; I50.32 Chronic diastolic (congestive) heart failure; Y84.6 Urinary catheterization as the cause of abnormal reaction of the patient, or of later complication, without mention of misadventure at the time of the procedure; B96.1 Klebsiella pneumoniae [K. pneumoniae] as the cause of diseases classified elsewhere; I11.0 Hypertensive heart disease with heart failure; G47.33 Obstructive sleep apnea (adult) (pediatric); N40.1 Benign prostatic hyperplasia with lower urinary tract symptoms; R33.8 Other retention of urine; H91.90 Unspecified hearing loss, unspecified ear; M51.369 Other intervertebral disc degeneration, lumbar region without mention of lumbar back pain or lower extremity pain; F03.90 Unspecified dementia, unspecified severity, without behavioral disturbance, psychotic disturbance, mood disturbance, and anxiety; Z96.619 Presence of unspecified artificial shoulder joint; J44.9 Chronic obstructive pulmonary disease, unspecified; E11.9 Type 2 diabetes mellitus without complications; I49.5 Sick sinus syndrome; E78.5 Hyperlipidemia, unspecified; G25.0 Essential tremor; Z66 Do not resuscitate; Z87.442 Personal history of urinary calculi; Z90.79 Acquired absence of other genital organ(s); Z86.69 Personal history of other diseases of the nervous system and sense organs; Z95.0 Presence of cardiac pacemaker; Z79.82 Long term (current) use of aspirin; Z87.891 Personal history of nicotine dependence
CPT/HCPCS: 36415; 51702; 74177; 80048; 80053; 81001; 82947; 83605; 83735; 85025; 87040; 87077; 87086; 87186; 94640; 94660; 94664; 94762; 96374-59; 96375-59; 97110; 97116; 97162; 97530; 99285-25; A9270; J1650; J1885; J2543; J3360; J7050; J7120; Q9967

== ENCOUNTER 2025-08-04 08:03 | Day surgery (SDC) | payer OTHER ==
[~2025-08-04] VITALS: Ht 170.2 cm; Wt 93.7 kg
[2025-08-04] VITALS (12 sets, daily range): BP systolic 84–150; BP diastolic 55–93
[~2025-08-04 08:03] MED LIST changes: +Acetaminophen650 M1 PO; +CeFAZolin Sodium 1,000 MG in NS 50 ML IV SCH; +HYDROCODONE-AC1 EA19 PO; +LAMO25 PO; -Seroquel Xr50 MG PO; +VENL37.5 PO; +ZINC15 PO
[2025-08-04] MEDS ORDERED: FentaNYL Citrate 50 MCG/ML 2 ML Injection ONE (08:43)
--- NOTE | 2025-08-04 08:45 | NUR ---
History, Chart, Medications and Allergies reviewed before start of procedure WITH . PATIENT ALERT, ANSWERS APPROPRIATLY. PER PATIENT HAS DEMENTIA. LUNGS CLEAR. PATIENT ON O2 AT 3LPM NC. Pre-Op teaching done. Pt verbalizes understanding. Patient States Post-Procedure ride home has been arranged. Patient confirms NPO status and agrees with scheduled surgery.
--- NOTE | 2025-08-04 08:48 | NUR ---
ASHLEY CATHERTER IN PLACE.
[2025-08-04] MEDS ORDERED: Phenylephrine HCl 100 MCG/ML-NS 10MLSYR (1MG/10ML) ONE (08:51)
[2025-08-04] MEDS ORDERED: Rocuronium Bromide 10 MG/ML 5ML Injection IV ONE (08:51)
[2025-08-04] MEDS ORDERED: Albuterol 2.5 MG/3 ML VIAL INH PRN (09:00)
[2025-08-04] MEDS ORDERED: HydrALAZINE HCl 20 MG / ML 1ML Vial IV PRN (09:05)
[2025-08-04] MEDS ORDERED: Ondansetron HCl 2 MG / ML 2ML Vial IV PRN ×2 (09:05→12:10)
[2025-08-04] MEDS ORDERED: FentaNYL Citrate 50 MCG/ML 2 ML Injection IV PRN ×2 (09:05)
[2025-08-04] MEDS ORDERED: HYDROmorphone HCl/Pf 1MG SYR IV PRN ×3 (09:05→12:15)
[2025-08-04] MEDS ORDERED: ePHEDrine Sulfate 50 MG/ML 1ML Injection IV PRN (09:05)
[2025-08-04] MEDS ORDERED: Nitrofurantoin100 M1 PO (09:08)
[2025-08-04] MEDS ORDERED: Cipro500 MG PO (09:08)
[2025-08-04] MEDS ORDERED: Sugammadex Sodium 200 MG/2ML SDV (100 MG/ML) ONE (09:16)
[2025-08-04] MEDS ORDERED: Lidocaine 2% Jelly Uro-Jet ONE (09:29)
[2025-08-04] MEDS ORDERED: Dexamethasone Sod Phos 10 MG/ML 1ML VIAL ONE (10:26)
[2025-08-04] MEDS ORDERED: Ondansetron HCl 2 MG / ML 2ML Vial ONE (10:26)
[2025-08-04] MEDS ORDERED: HYDROmorphone HCl/Pf 1MG SYR ONE (11:01)
[2025-08-04] MEDS ORDERED: D5W-LR 1,000 ML IV SCH (11:10)
--- NOTE | 2025-08-04 11:30 | NUR ---
PT TO PACU, LIPS BLUE, O2 APPLIED. PT CONFUSED, REASSURANCE PROVIDED. MENTATION AND SATS IMPROVED ON 4L NC. 25 MCG FENT BY ANESTHESIA DURING REPORT. CBI RUNNING CLEAR YELLOW. PT IN NSR UPON ARRIVAL, IRREG UPON DC (HX AFIB). RAMIREZ EMPTIED FOR 550, BUT CBI INPUT UNCLEAR, BAG MARKED FOR FLOOR NURSE. PT DENIES PAIN THROUGHOUT PACU STAY, SLOW TO ANSWER, [place], BUT ORIENTED. CATHETER SITE CDI, NO PENILE DRAINAGE. PHONE REPORT TO LEAH LASSITER.
--- NOTE | 2025-08-04 12:02 | NUR ---
ASSUMED CARE OF PT @1150. PT AXO4, CHEESH-NA W/ 1 HEARING AID TO L EAR. CBI IN PLACE. LIGHT YELLOW W/O RED TINGE NOTED, PT TOELRATING WELL. PO FLUIDS/FOOD OFFERED BUT PT RESTING CURRENTLY.
[2025-08-04] MEDS ORDERED: HYDROcodone 5-APAP 325 TAB PO PRN (12:15)
[2025-08-04] MEDS ORDERED: Formoterol/Mometasone MDI 5/200 mcg 13 GM INH SCH (12:35)
[2025-08-04] MEDS ORDERED: Tiotropium Bromide 2.5 MCG/ACT MIST INHAL (10 ACT/4 GM) INH SCH (12:35)
--- NOTE | 2025-08-04 16:42 | NUR ---
SUMMARY POST ASSUMPTION, NO ACUTE CHANGES. CBI AT MINIMAL GTT RATE, URINE RED TINGED WITH NO MAJOR CLOTS NOTED - CATHETER FREE FLOWING. PT TOLERATING PO INTAKE WELL AND FLUIDS. CATHETER SECURED. BED ALARM ON- SPOUSE SAYS PT CAN BECOME FORGETFUL. DR RAE STATED TO KEEP CBI RUNNING OVERNIGHT. PT TOLERATING WELL BUT HAS REQUIRED TRAMADOL FOR PENIS PAIN MANAGEMENT. OTHERWISE, PT RESTING IN BED, WATCHING TV. USING CALL LIGHT WHEN NEEDING ASSISTANCE.
[2025-08-04] MEDS ORDERED: DULoxetine HCL 60 MG Capsule DR PO SCH (21:00)
[2025-08-04] MEDS ORDERED: Nitrofurantoin/Nitrofuran Mac 100 MG Cap PO SCH (21:00)
[2025-08-05 04:48] LABS: Hematocrit 37.0 % (37.0-53.0); Hemoglobin 11.8 g/dL (13.5-17.5); Mean Corpuscular HGB Conc 31.9 g/dL (31.5-36.5); Mean Corpuscular Volume 95 fL (80-100); NRBC ABSOLUTE 0.00 K/mm3 (0.00-0.02); NRBC Auto 0.0 /100 WBC (0.0-0.2); Platelet Count 137 K/mm3 (150-400); RDW Coefficient Variation 16.4 % (11.7-14.2); RDW Standard Deviation 58.0 fL (35.1-46.3)
[2025-08-05 05:09] VITALS: BP 149/70
[2025-08-05 07:30] VITALS: BP 140/110
[2025-08-05 07:31] VITALS: BP 138/61
[2025-08-05] MEDS ORDERED: Fenofibrate 67 MG Cap PO SCH (09:00)
--- NOTE | 2025-08-05 10:15 | NUR ---
DISCHARGE NOTE THIS RN ASSUMED CARE AT APPROX 0715. POD 1 TURP. VSS. ON HOME 3L VIA NC - SATs >90%. DENIES PAIN. RAMIREZ CATHETER IN PLACE - PATIENT TO MN HOME W/ DEVICE. DRAINING LIGHT RED URINE TO GRAVITY, NO CLOTS NOTED. BLADDER IRRIGATION STOPPED THIS MORNING. TOLERATING PO INTAKE. IV REMOVED. PERSONAL AND WRITTEN EDUCATION PROVIDED - PATIENT AND HIS STATE UNDERSTANDING. PERSONAL BELONGINGS W/ PATIENTs . PATIENT TRANSFERRED OFF UNIT VIA .
== END 2025-08-05 10:20 | disposition home or self-care (01) ==
LOC: ORSCMMR 08:03 → ORD 09:30 → ORSCMMR 09:30 → SURS 11:38 → ORSCMMR 08-05 10:20
PROVIDERS: Urology
PROC: 0VT08ZZ Resection of Prostate, Via Natural or Artificial Opening Endoscopic (ICD-10-PCS; principal; 2025-08-04 09:30)
DX: N40.0 Benign prostatic hyperplasia without lower urinary tract symptoms (principal); R33.9 Retention of urine, unspecified; I10 Essential (primary) hypertension; E78.5 Hyperlipidemia, unspecified; I25.10 Atherosclerotic heart disease of native coronary artery without angina pectoris; J44.89 Other specified chronic obstructive pulmonary disease; Z87.891 Personal history of nicotine dependence; Z99.81 Dependence on supplemental oxygen; G47.33 Obstructive sleep apnea (adult) (pediatric); E11.9 Type 2 diabetes mellitus without complications; E66.9 Obesity, unspecified; Z68.32 Body mass index [BMI] 32.0-32.9, adult; I48.91 Unspecified atrial fibrillation; Z79.899 Other long term (current) drug therapy; Z79.82 Long term (current) use of aspirin
CPT/HCPCS: 36415; 82947; 85027; 88305; 94640; 94664; 94760; A9270; J0690; J1100; J1171; J1580; J2371; J2405; J2704; J3010; J7120